=== PATIENT | male | born 1945 | race Caucasian/White ===

== ENCOUNTER → 2017-09-23 | Outpatient (CLI) | payer MEDICARE | END | disposition home or self-care (01) | LOC: CT 08:58 | DX: I60.9 Nontraumatic subarachnoid hemorrhage, unspecified (principal) | CPT/HCPCS: 70450 ==

== ENCOUNTER → 2017-12-20 | Outpatient (CLI) | payer OTHER, MEDICARE | END | disposition home or self-care (01) | LOC: KCIC CT 11:10 | DX: Z12.2 Encounter for screening for malignant neoplasm of respiratory organs (principal); J44.9 Chronic obstructive pulmonary disease, unspecified; N28.9 Disorder of kidney and ureter, unspecified; Z87.891 Personal history of nicotine dependence | CPT/HCPCS: 71250 ==

== ENCOUNTER → 2018-04-15 | Outpatient (CLI) | payer OTHER | END | disposition home or self-care (01) | LOC: KCIC CT 08:03 | DX: R91.8 Other nonspecific abnormal finding of lung field (principal); N28.89 Other specified disorders of kidney and ureter; I25.10 Atherosclerotic heart disease of native coronary artery without angina pectoris; M47.894 Other spondylosis, thoracic region; I13.0 Hypertensive heart and chronic kidney disease with heart failure and stage 1 through stage 4 chronic kidney disease, or unspecified chronic kidney disease; E11.22 Type 2 diabetes mellitus with diabetic chronic kidney disease; N18.3 Chronic kidney disease, stage 3 (moderate); I50.9 Heart failure, unspecified; E78.5 Hyperlipidemia, unspecified; E03.9 Hypothyroidism, unspecified | CPT/HCPCS: 71250 ==

== ENCOUNTER → 2018-04-27 | Outpatient (CLI) | payer MEDICARE ==
[2017-09-13 14:14] VITALS: BP 111/57
[~2018-04-27] MED LIST: ACET325T21 PO; AMIO200T4 PO; ASPI-630 PO; ASPI325T11 PO; CARV3.12 PO; CLOP75TA57 PO; CYAN100T PO; FOLI1TAB16 PO; HYDR-965 PO; LEVO100T PO; LIDO700A4 TP; MAGN400O7 PO; MAGN400T22 PO; MIDO5TAB PO; NITR0.4T SL; NYST15CR TP; PANT40GR PO; SIMV20TA PO; TAMS0.4C2 PO; TRAM50TA PO
--- NOTE | 2018-04-27 12:00 | CARD ---
MR#: [id number] Date of Study: 04/27/2018 Ordering Physician: OBED ELI, Referring Physician: OBED ELI Tech: Dana Morocho RDCS APPROVED REPORT EXAM: Two-dimensional and M-mode echocardiogram with Doppler and color Doppler. Other Information Quality : Fair INDICATION Ischemic Cardiomyopathy 2D DIMENSIONS RVDd2.3 (2.9-3.5cm)Left Atrium(2D)3.6 (1.6-4.0cm) IVSd1.1 (0.7-1.1cm)Aortic Root(2D)3.1 (2.0-3.7cm) LVDd4.3 (3.9-5.9cm)LVOT Diameter2.4 (1.8-2.4cm) PWd1.1 (0.7-1.1cm)LVDs2.3 (2.5-4.0cm) FS (%) 30.0 %SV65.9 ml LVEF(%)60.0 (>50%) Aortic Valve AoV Peak Mathew.81.1cm/sAoV VTI10.9cm AO Peak GR.2.6mmHgLVOT Peak Mathew.77.7cm/s AO Mean GR.1mmHgAVA (VMAX)4.18cm2 SABINA (VTI)5.50cm2 Mitral Valve MV E Xujzchmt01.8cm/sMV DECEL [id number] MV A Velocity2.0cm/sE/A Ratio44.4 Tricuspid Valve TR P. [id number]/sRAP [id number] TR Peak Gr.02pdSgQKON07yyPh Pulmonary Vein S1 Fhdcrwfa23.6cm/sD2 Qdfqblzt06.8cm/s PVa [id number] LEFT VENTRICLE The left ventricle is normal size. There is normal left ventricular wall thickness. The left ventricu lar systolic function is normal. The Ejection Fraction is 55-60%. There is normal LV segmental wall m otion. RIGHT VENTRICLE The right ventricle is normal size. The right ventricular systolic function is normal. ATRIA The left atrium size is normal. The right atrium size is normal. The interatrial septum is intact wit h no evidence for an atrial septal defect or patent foramen ovale as noted on 2-D or Doppler imaging. AORTIC VALVE The aortic valve is calcified but opens well. Doppler and Color Flow revealed no significant aortic r egurgitation. There is no significant aortic valvular stenosis. MITRAL VALVE The mitral valve is calcified but opens well. There is no evidence of mitral valve prolapse. There is no mitral valve stenosis. Doppler and Color-flow revealed trace mitral regurgitation. TRICUSPID VALVE The tricuspid valve is normal in structure and function. Doppler and Color Flow revealed trace tricus pid regurgitation. The PA pressure was estimated at 25 mmHg. There is no tricuspid valve stenosis. PULMONIC VALVE The pulmonic valve is not well visualized. Doppler and Color Flow revealed trace pulmonic valvular re gurgitation. There is no pulmonic valvular stenosis. GREAT VESSELS The aortic root is normal in size. The ascending aorta is not well seen. The IVC is normal in size an d collapses >50% with inspiration. PERICARDIAL EFFUSION There is no evidence of significant pericardial effusion. Critical Notification Critical Value: No <Conclusion> The left ventricular systolic function is normal. The Ejection Fraction is 55-60%. There is normal LV segmental wall motion. Trace mitral regurgitation. Trace tricuspid regurgitation. The PA pressure was estimated at 25 mmHg. There is no evidence of significant pericardial effusion. Signed by : Obed Eli, Electronically Approved : 04/27/2018 11:58:57
== END | disposition home or self-care (01) ==
LOC: ECHO 09:33
PROVIDERS: ATTEND Internal Medicine Cardiovascular Disease
DX: I25.5 Ischemic cardiomyopathy (principal); I13.0 Hypertensive heart and chronic kidney disease with heart failure and stage 1 through stage 4 chronic kidney disease, or unspecified chronic kidney disease; E11.22 Type 2 diabetes mellitus with diabetic chronic kidney disease; N18.3 Chronic kidney disease, stage 3 (moderate); I50.9 Heart failure, unspecified; E78.5 Hyperlipidemia, unspecified; E03.9 Hypothyroidism, unspecified; J44.9 Chronic obstructive pulmonary disease, unspecified; I25.10 Atherosclerotic heart disease of native coronary artery without angina pectoris; K21.9 Gastro-esophageal reflux disease without esophagitis; Z87.891 Personal history of nicotine dependence
CPT/HCPCS: 93306

== ENCOUNTER 2018-05-20 07:48 | Outpatient (CLI) | payer MEDICARE ==
[2018-05-20] VITALS (13 sets, daily range): BP systolic 110–141; BP diastolic 68–86
[~2018-05-20] VITALS: Ht 170.2 cm; Wt 113.4 kg
[~2018-05-20 07:48] MED LIST changes: +IODIXANOL 320 MG/ML 100 ML VIAL. ONE; +LIDOCAINE 1% PF 2 ML VIAL. ONE
[2018-05-20 08:27] LABS: HEMATOCRIT 40.7 % (39.0-53.0); RED BLOOD COUNT 4.23 x10^6/uL (4.30-5.70); RED CELL DISTRIBUTION WIDTH 15.4 % (11.5-14.5); WHITE BLOOD COUNT 6.9 x10^3/uL (4.0-11.0)
[2018-05-20 08:36] LABS: PROTHROMBIN TIME PATIENT 12.5 SEC (11.7-14.0)
[2018-05-20] MEDS ORDERED: ASPI325T11 PO (08:38)
[2018-05-20] MEDS ORDERED: CLOP75TA PO (08:38)
[2018-05-20 08:40] LABS: CALCIUM 8.8 mg/dL (8.5-10.1); CREATININE 1.9 mg/dL (0.7-1.3); GFR 34.8; POTASSIUM 3.8 mmol/L (3.5-5.1)
[2018-05-20] MEDS ORDERED: MIDO5TAB PO (08:48)
[2018-05-20] MEDS ORDERED: TAMS0.4C2 PO (08:51)
[2018-05-20] MEDS ORDERED: fentaNYL PF VIAL 100 MCG/2 ML VIAL ONE (08:53)
[2018-05-20] MEDS ORDERED: VERAPAMIL 5 MG/2 ML VIAL. ONE (08:54)
[2018-05-20] MEDS ORDERED: HEPARIN for IV BOLUS 10,000 UNIT/10 ML VIAL. ONE (08:54)
[2018-05-20] MEDS ORDERED: NITROGLYCERIN 200 MCG/2 ML SYRINGE FOR CATH/VASC LAB. ONE (08:54)
[2018-05-20] MEDS ORDERED: MIDAZOLAM HCL/PF 2 MG/2 ML VIAL. ONE (08:54)
[2018-05-20] MEDS ORDERED: LIDOCAINE 1% PF 2 ML VIAL. INJ ONE (09:30)
[2018-05-20] MEDS ORDERED: fentaNYL PF VIAL 100 MCG/2 ML VIAL IV ONE (09:30)
[2018-05-20] MEDS ORDERED: NITROGLYCERIN 200 MCG/2 ML SYRINGE FOR CATH/VASC LAB. IART ONE (09:30)
[2018-05-20] MEDS ORDERED: HEPARIN for IV BOLUS 10,000 UNIT/10 ML VIAL. IART ONE (09:30)
[2018-05-20] MEDS ORDERED: IODIXANOL 320 MG/ML 100 ML VIAL. IV ONE (09:30)
[2018-05-20] MEDS ORDERED: VERAPAMIL 5 MG/2 ML VIAL. IART ONE (09:30)
[2018-05-20] MEDS ORDERED: MIDAZOLAM HCL/PF 2 MG/2 ML VIAL. IV ONE (09:30)
[2018-05-20] MEDS ORDERED: IV 1/2 NORMAL SALINE 1,000 ML IV SCH ×2 (09:30→10:00)
[2018-05-20] MEDS ORDERED: CONTRAST GIVEN. MC PRN (09:45)
--- NOTE | 2018-05-20 09:50 | PDOC ---
MODERATE SEDATION ASSESSMENT RISKS/ALTERNATIVES Risks/Alternatives Risks and alternatives of this type of sedation and procedure discussed with: RISK/ALTERNATIVES: Patient H & P ON CHART H & P H & P on chart and reviewed for co-morbid conditions and appropriate labs. H&P ON CHART: Yes STATUS PREG STATUS ASSESSED: N/A MEDS/ALLERGIES REVIEWED Meds/Allergies Reviewed Medications and Allergies including time and route of recently administered narcotics and sedatives. MEDS/ALLERGIES REVIEWED: Yes ASA RATING ASA RATING: II AIRWAY ASSESSMENT Airway Assessment Airway patency, oral function limitations, presence of caps, crowns, dentures, partials, and ability to extend neck assessed. AIRWAY ASSESSMENT: Yes MALLAMPATI SCORE MALLAMPATI SCORE: II PRE-SEDATION ASSESSMENT PRE-SEDATION ASSESSMENT: Yes OBED ELI MD May 20, 2018 09:50
[2018-05-20] MEDS ORDERED: NITROGLYCERIN SUBLINGUAL 0.4 MG BOTTLE OF 25. SL PRN (10:00)
--- NOTE | 2018-05-20 10:33 | CARD ---
MR#: [id number] Date of Study: 05/20/2018 Ordering Physician: OBED ELI, Referring Physician: OBED ELI Tech: RT Amrit (R) APPROVED REPORT Technologist: Lorna Morocho RT (R) Nurse: Johanny Lamas R.N. Procedure(s) performed: Left heart catheterization, selective coronary angiography and left ventricul ography via right transradial approach Moderate sedation: 28 minutes INDICATION The indication(s) include : Unstable angina and positive stress test. PROCEDURE NARRATIVE After explaining the risks, benefits and alternative options, informed consent was obtained from alfred ent. Patient was brought to the cardiac Printer Maintainer and right wrist was prepped and draped in the usual fashion after confirming a positive modified Victor Manuel's test. Arterial access was obtained in the righ t radial artery and a 6 Cameroonian sheath was inserted. 6 Cameroonian Yash catheter was used to perform darrion ective angiography of the left and right coronary arteries. 6 Cameroonian pigtail catheter was used to pe rform left ventriculography. Patient tolerated the procedure well. Hemostasis was achieved using TR band. There were no immediate complications. The following findings were noted. FINDINGS 1. Hemodynamics: Left ventricular end-diastolic pressure of 17 mmHg. No pullback gradient across th e aortic valve. 2. Left ventriculography: Normal left ventricle systolic function with ejection fraction estimated at 60%. No significant mitral regurgitation seen. 3. Coronary angiography: a. The left main coronary artery arose from the left sinus of Valsalva, gave rise to the left anteri or descending and left circumflex arteries and showed 70% calcified stenosis involving the proximal s egment. b. The left anterior descending artery showed 95% stenosis involving the proximal to midsegment. c. The left circumflex artery showed 50% stenosis in the midsegment. d. The right coronary artery was a large and dominant vessel arising from the right sinus of Valsalv a that showed patent stent in the proximal to midsegment. Immediately distal to the stent, there was a 60-70% stenosis noted. The distal segment had 40% stenosis. Conclusion 1. Three-vessel coronary artery disease including significant left main coronary artery stenosis and critical left anterior descending artery stenosis 2. Normal left ventricle systolic function with ejection fraction estimated at 60% Recommendations CT surgery consultation for possible coronary artery bypass surgery. If patient is deemed a poor surgical candidate, we will consider high risk multivessel PCI/stents myesha cement with hemodynamic support from Impella percutaneous ventricular assist device. Signed by : Obed Eli, Electronically Approved : 05/20/2018 10:32:15
[2018-05-20] MEDS ORDERED: NITR0.4T22 SL (13:46)
--- NOTE | 2018-05-20 16:39 | PDOC2 ---
CONSULT Date of Consult Date of Consult DATE: 05/20/18 TIME: 16:33 Reason for Consult Reason for Consult: Severe three-vessel coronary artery disease with left main stem involvement Referring Physician Referring Physician: Dr Traore Identification/Chief Complaint Chief Complaint Chest pain Source Source: Chart review, Patient History of Present Illness Reason for Visit: The patient is a 72-year-old male who underwent a stress test which was positive. 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 He also complains of intermittent chest pain on exertion. He had a left heart catheter today showed three-vessel coronary artery disease including significant left main coronary artery stenosis and critical left anterior descending artery stenosis. LV function is preserved. Was consulted to consider the patient for surgical coronary revascularization. Of note the patient has a history of bilateral lower extremity greater saphenous vein ablations. He also has chronic kidney disease with a baseline creatinine of 2. Past Medical History Cardiovascular: AFIB, CAD, CHF, Other Pulmonary: Pneumonia GI: Gastritis Heme/Onc: Anemia NOS Musculoskeletal: low back pain Renal/: Acute renal failure, Chronic renal failure Endocrine: Hypothyroidism Past Surgical History Past Surgical History: Hysterectomy Family History Family History: Family History Unknown Social History ALCOHOL: none Lives: Senior Care Current Medications Current Medications Current Medications Iodixanol (Visipaque 320) 100 ml STK-MED ONCE .ROUTE ; Start 05/20/18 at 07:13; Stop 05/20/18 at 07:14; Status DC Lidocaine HCl (Xylocaine-Mpf 1% 2ml Vial) 2 ml STK-MED ONCE .ROUTE ; Start at 07:13; Stop 05/20/18 at 07:14; Status DC Heparin Sodium/ Sodium Chloride 500 ml @ As Directed STK-MED ONCE .ROUTE ; Start 05/20/18 at 07:14; Stop 05/20/18 at 07:15; Status DC Heparin Sodium/ Sodium Chloride 500 ml @ As Directed STK-MED ONCE .ROUTE ; Start 05/20/18 at 07:20; Stop 05/20/18 at 07:21; Status DC Fentanyl Citrate (Fentanyl 2ml Vial) 100 mcg STK-MED ONCE .ROUTE ; Start at 08:53; Stop 05/20/18 at 08:54; Status DC Midazolam HCl (Versed) 2 mg STK-MED ONCE .ROUTE ; Start 05/20/18 at 08:54; Stop 05/20/18 at 08:55; Status DC Heparin Sodium (Porcine) (Heparin Sodium) 10,000 unit STK-MED ONCE .ROUTE ; Start 05/20/18 at 08:54; Stop 05/20/18 at 08:55; Status DC Verapamil HCl (Verapamil) 5 mg STK-MED ONCE .ROUTE ; Start 05/20/18 at 08:54; Stop 05/20/18 at 08:55; Status DC Nitroglycerin (Nitroglycerin) 200 mcg STK-MED ONCE .ROUTE ; Start 05/20/18 at 08: 54; Stop 05/20/18 at 08:55; Status DC Nitroglycerin (Nitroglycerin) 200 mcg 1X ONCE IART Last administered on at 09:30; Start 05/20/18 at 09:30; Stop 05/20/18 at 09:39; Status DC Verapamil HCl (Verapamil) 2.5 mg 1X ONCE IART Last administered on 05/20/18at 09 :30; Start 05/20/18 at 09:30; Stop 05/20/18 at 09:39; Status DC Heparin Sodium (Porcine) (Heparin Sodium) 2,500 unit 1X ONCE IART Last administered on 05/20/18at 09:30; Start 05/20/18 at 09:30; Stop 05/20/18 at 09:39; Status DC Heparin Sodium/ Sodium Chloride (HEPARIN for ARTERIAL LINE FLUSH) 1,000 unit 1X ONCE IART Last administered on 05/20/18at 09:30; Start 05/20/18 at 09:30; Stop 05/20/18 at 09:39; Status DC Midazolam HCl (Versed) 2 mg 1X ONCE IV Last administered on 05/20/18at 09:30; Start 05/20/18 at 09:30; Stop 05/20/18 at 09:39; Status DC Fentanyl Citrate (Fentanyl 2ml Vial) 75 mcg 1X ONCE IV Last administered on 05/20/18at 09:38; Start 05/20/18 at 09:30; Stop 05/20/18 at 09:39; Status DC Lidocaine HCl (Xylocaine-Mpf 1% 2ml Vial) 2 ml 1X ONCE INJ Last administered on 05/20/18at 09:37; Start 05/20/18 at 09:30; Stop 05/20/18 at 09:39; Status DC Iodixanol (Visipaque 320) 126 ml 1X ONCE IV Last administered on 05/20/18at 09: 30; Start 05/20/18 at 09:30; Stop 05/20/18 at 09:39; Status DC Sodium Chloride 1,000 ml @ 75 mls/hr [id number] IV Last administered on 05/20/18at 09:30; Start 05/20/18 at 09:30; Stop 05/20/18 at 13:52; Status DC Info (CONTRAST GIVEN -- Rx MONITORING) 1 each PRN DAILY PRN MC SEE COMMENTS; Start 05/20/18 at 09:45; Stop 05/20/18 at 13:52; Status DC Sodium Chloride 1,000 ml @ 100 mls/hr Q10H IV ; Start 05/20/18 at 10:00; Stop at 13:52; Status DC Nitroglycerin (Nitrostat) 0.4 mg PRN Q5MIN PRN SL CHEST PAIN; Start 05/20/18 at 10:00; Stop 05/20/18 at 13:52; Status DC Active Scripts Active Reported NITROGLYCERIN SubLingual (Nitroglycerin) 0.4 Mg Tab.subl 0.4 Mg SL PRN Q5MIN PRN Tamsulosin Hcl 0.4 Mg Cap.er.24h 1 Cap PO DAILY Midodrine Hcl 5 Mg Tablet 5 Mg PO TID Aspirin Ec (Aspirin) 325 Mg Tablet.dr 1 Tab PO DAILY Clopidogrel (Clopidogrel Bisulfate) 75 Mg Tablet 1 Tab PO DAILY Midodrine Hcl 5 Mg Tablet 5 Mg PO Mag-Oxide (Magnesium Oxide) 400 Mg Tablet 1 Tab PO BID Zocor (Simvastatin) 20 Mg Tablet 20 Mg PO HS Synthroid (Levothyroxine Sodium) 100 Mcg Tablet 100 Mcg PO DAILY06 Protonix (Pantoprazole Sodium) 40 Mg Granpkt.dr 40 Mg PO DAILY08 Nitrostat (Nitroglycerin) 0.4 Mg Tab.subl 0.4 Mg SL PRN Q5MIN Lidoderm (Lidocaine) 700 Mg Adh..patch 700 Mg TP DAILY Folic Acid 1 Mg Tablet 1 Mg PO DAILY Vitamin B-12 (Cyanocobalamin (Vitamin B-12)) 100 Mcg Tablet 100 Mcg PO DAILY Milk Of Magnesia (Magnesium Hydroxide) 400 Mg/5 Ml Oral.susp 400 Mg PO PRN Q2HR Acetaminophen 325 Mg Tablet 325 Mg PO PRN Q6HRS Allergies Allergies: Coded Allergies: No Known Drug Allergies (Unverified , 08/19/13) ROS General: No: Chills, Night Sweats, Fatigue, Malaise, Appetite PSYCHOLOGICAL ROS: No: Anxiety, Behavioral Disorder, Concentration difficultie , Decreased libido, Depression, Disorientation, Hallucinations, Hostility, Irritablity, Memory difficulties, Mood Swings, Obsessive thoughts, Physical abuse, Sexual abuse, Sleep disturbances, Suicidal ideation Eyes: No Blurry vision, No Decreased vision, No Double vision, No Dry eyes, No Excessive tearing, No Eye Pain, No Itchy Eyes, No Loss of vision, No Photophobia , No Scotomata, No Uses contacts, No Uses glasses HEENT: No: Heacaches, Visual Changes, Hearing change, Nasal congestion, Nasal discharge, Oral lesions, Sinus pain, Sore Throat, Epistaxis, Sneezing, Snoring, Tinnitus, Vertigo, Vocal changes ALLERGY AND IMMUNOLOGY: No: Hives, Insect Bite Sensitivity, Itchy/Watery Eyes, Nasal Congestion, Post Nasal Drip, Seasonal Allergies Hematological and Lymphatic: No: Bleeding Problems, Blood Clots, Blood Transfusions, Brusing, Night Sweats, Pallor, Swollen Lymph Nodes ENDOCRINE: No: Breast Changes, Galactorrhea, Hair Pattern Changes, Hot Flashes , Malaise/lethargy, Mood Swings, Palpitations, Polydipsia/polyuria, Skin Changes , Temperature Intolerance, Unexpected Weight Changes Respiratory: No: Cough, Hemoptysis, Orthopnea, Pleuritic Pain, Shortness of breath, SOB with excertion, Sputum Changes, Stridor, Tachypnea, Wheezing Cardiovascular: yes Chest Pain; No Palpitations, No Orthopnea, No Paroxysmal Noc. Dyspnea, No Edema, No Lt Headedness Gastrointestinal: No Nausea, No Vomiting, No Abdominal Pain, No Diarrhea, No Constipation, No Melena, No Hematochezia Genitourinary: No Dysuria, No Frequency, No Incontinence, No Hematuria, No Retention, No Discharge, No Urgency, No Pain, No Flank Pain Musculoskeletal: No Gait Disturbance, No Joint Pain, No Joint Stiffness, No Joint Swelling, No Muscle Pain, No Muscular Weakness, No Pain In:, No Swelling In: Neurological: No Behavorial Changes, No Bowel/Bladder ControlChng, No Confusion , No Dizziness, No Gait Disturbance, No Headaches, No Impaired Coord/balance, No Memory Loss, No Numbness/Tingling, No Seizures, No Speech Problems, No Tremors, No Visual Changes, No Weakness Skin: No Dry Skin, No Eczema, No Hair Changes, No Lumps, No Mole Changes, No Mottling, No Nail Changes, No Pruritus, No Rash, No Skin Lesion Changes, No Acne Physical Exam General: Alert, Oriented X3, No acute distress HEENT: Atraumatic, PERRLA Lungs: Clear to auscultation Heart: Normal S1, Normal S2, Other (irregular) Abdomen: Soft, No tenderness Extremities: No edema Skin: No significant lesion Neuro: Normal gait, Normal speech, Strength at 5/5 X4 ext, Normal tone, Sensation intact, Cranial nerves 3-12 NL Psych/Mental Status: Mental status NL MUSCULOSKELETAL: No deformity Vitals VITALS Vital Signs Date Time Temp Pulse Resp B/P (MAP) Pulse Ox O2 Delivery O2 Flow Rate FiO2 05/20/18 13:30 80 18 96 Room Air 05/20/18 09:38 2.0 05/20/18 08:15 98.3 127/83 (98) 98.3 Labs Labs Laboratory Tests Test 05/20/18 08:15 White Blood Count 6.9 x10^3/uL (4.0-11.0) Red Blood Count 4.23 x10^6/uL (4.30-5.70) Hemoglobin 14.0 g/dL (13.0-17.5) Hematocrit 40.7 % (39.0-53.0) Mean Corpuscular Volume 96 fL (79-100) Mean Corpuscular Hemoglobin 33 pg (25-35) Mean Corpuscular Hemoglobin Concent 34 g/dL (31-37) Red Cell Distribution Width 15.4 % (11.5-14.5) Platelet Count 213 x10^3/uL (140-400) Prothrombin Time 12.5 SEC (11.7-14.0) Prothromb Time International Ratio 1.0 (0.8-1.1) Sodium Level 138 mmol/L (136-145) Potassium Level 3.8 mmol/L (3.5-5.1) Chloride Level 99 mmol/L (98-107) Carbon Dioxide Level 25 mmol/L (21-32) Anion Gap 14 (6-14) Blood Urea Nitrogen 14 mg/dL (8-26) Creatinine 1.9 mg/dL (0.7-1.3) Estimated GFR (Cockcroft-Gault) 34.8 Glucose Level 111 mg/dL (70-99) Calcium Level 8.8 mg/dL (8.5-10.1) Laboratory Tests Test 05/20/18 08:15 White Blood Count 6.9 x10^3/uL (4.0-11.0) Red Blood Count 4.23 x10^6/uL (4.30-5.70) Hemoglobin 14.0 g/dL (13.0-17.5) Hematocrit 40.7 % (39.0-53.0) Mean Corpuscular Volume 96 fL (79-100) Mean Corpuscular Hemoglobin 33 pg (25-35) Mean Corpuscular Hemoglobin Concent 34 g/dL (31-37) Red Cell Distribution Width 15.4 % (11.5-14.5) Platelet Count 213 x10^3/uL (140-400) Prothrombin Time 12.5 SEC (11.7-14.0) Prothromb Time International Ratio 1.0 (0.8-1.1) Sodium Level 138 mmol/L (136-145) Potassium Level 3.8 mmol/L (3.5-5.1) Chloride Level 99 mmol/L (98-107) Carbon Dioxide Level 25 mmol/L (21-32) Anion Gap 14 (6-14) Blood Urea Nitrogen 14 mg/dL (8-26) Creatinine 1.9 mg/dL (0.7-1.3) Estimated GFR (Cockcroft-Gault) 34.8 Glucose Level 111 mg/dL (70-99) Calcium Level 8.8 mg/dL (8.5-10.1) Images Images FINDINGS 1. Hemodynamics: Left ventricular end-diastolic pressure of 17 mmHg. No pullback gradient across the aortic valve. 2. Left ventriculography: Normal left ventricle systolic function with ejection fraction estimated at 60%. No significant mitral regurgitation seen. 3. Coronary angiography: a. The left main coronary artery arose from the left sinus of Valsalva, gave rise to the left anterior descending and left circumflex arteries and showed 70 % calcified stenosis involving the proximal segment. b. The left anterior descending artery showed 95% stenosis involving the proximal to midsegment. c. The left circumflex artery showed 50% stenosis in the midsegment. d. The right coronary artery was a large and dominant vessel arising from the right sinus of Valsalva that showed patent stent in the proximal to midsegment. Immediately distal to the stent, there was a 60-70% stenosis noted. The distal segment had 40% stenosis. Conclusion 1. Three-vessel coronary artery disease including significant left main coronary artery stenosis and critical left anterior descending artery stenosis 2. Normal left ventricle systolic function with ejection fraction estimated at 60% Assessment/Plan Assessment/Plan 72-year-old male who underwent a stress test which was positive. 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 He also complains of intermittent chest pain on exertion. He had a left heart catheter today showed three-vessel coronary artery disease including significant left main coronary artery stenosis and critical left anterior descending artery stenosis. LV function is preserved. Was consulted to consider the patient for surgical coronary revascularization. Of note the patient has a history of bilateral lower extremity greater saphenous vein ablations. He also has chronic kidney disease with a baseline creatinine of 2. He is right-handed and is left-sided Victor Manuel's test is borderline. Given the lack of conduits, I think proceeding with a CABG may pose some risk if no conduits are found. I did discuss this case with his clinical esthetician Dr Traore, who agrees it would be safer to proceed with PCI. AWILDA PAUL MD May 20, 2018 16:39
== END 2018-05-20 13:40 | disposition home or self-care (01) ==
LOC: CCL 07:48
PROVIDERS: ATTEND Internal Medicine Cardiovascular Disease
DX: I25.110 Atherosclerotic heart disease of native coronary artery with unstable angina pectoris (principal); I48.91 Unspecified atrial fibrillation; Z87.01 Personal history of pneumonia (recurrent); Z87.19 Personal history of other diseases of the digestive system; E03.9 Hypothyroidism, unspecified; I13.0 Hypertensive heart and chronic kidney disease with heart failure and stage 1 through stage 4 chronic kidney disease, or unspecified chronic kidney disease; N18.9 Chronic kidney disease, unspecified; D64.9 Anemia, unspecified; Z79.899 Other long term (current) drug therapy
CPT/HCPCS: 36415; 80048; 85027; 85610; 93458; 99152; 99153; C1769; C1892; J1644; J2250; J3010; J3490; Q9967

== ENCOUNTER 2018-05-24 07:54 | Inpatient (IN) | payer MEDICARE ==
[2018-05-24] VITALS (16 sets, daily range): BP systolic 91–136; BP diastolic 60–84
[~2018-05-24] VITALS: Ht 170.2 cm; Wt 113.4 kg
[~2018-05-24 07:54] MED LIST changes: +CLOP75TA PO; -LIDOCAINE 1% PF 2 ML VIAL. ONE; +LIDOCAINE 1% PF 30 ML VIAL. ONE; +NITR0.4T22 SL
[2018-05-24 08:47] LABS: CALCIUM 8.4 mg/dL (8.5-10.1); CREATININE 2.2 mg/dL (0.7-1.3); GFR 29.4; POTASSIUM 3.8 mmol/L (3.5-5.1)
[2018-05-24 08:57] LABS: PROTHROMBIN TIME PATIENT 13.1 SEC (11.7-14.0)
[2018-05-24 08:58] LABS: HEMATOCRIT 40.4 % (39.0-53.0); HEMOGLOBIN 13.7 g/dL (13.0-17.5); RED BLOOD COUNT 4.21 x10^6/uL (4.30-5.70); RED CELL DISTRIBUTION WIDTH 15.4 % (11.5-14.5); WHITE BLOOD COUNT 7.4 x10^3/uL (4.0-11.0)
[2018-05-24] MEDS ORDERED: fentaNYL PF VIAL 100 MCG/2 ML VIAL ONE (10:03)
[2018-05-24] MEDS ORDERED: MIDAZOLAM HCL/PF 2 MG/2 ML VIAL. ONE ×2 (10:03→10:45)
[2018-05-24] MEDS ORDERED: BIVALIRUDIN 250 MG VIAL. IV ONE ×2 (10:03→12:00)
[2018-05-24] MEDS ORDERED: IODIXANOL 320 MG/ML 100 ML VIAL. ONE (10:18)
[2018-05-24] MEDS ORDERED: LIDOCAINE 1% PF 30 ML VIAL. ONE (10:32)
[2018-05-24] MEDS ORDERED: CLOPIDOGREL BISULFATE 75 MG TABLET ONE (11:53)
[2018-05-24] MEDS ORDERED: fentaNYL PF VIAL 100 MCG/2 ML VIAL IV ONE (12:00)
[2018-05-24] MEDS ORDERED: CLOPIDOGREL BISULFATE 75 MG TABLET PO ONE (12:00)
[2018-05-24] MEDS ORDERED: LIDOCAINE 1% PF 30 ML VIAL. INJ ONE (12:00)
[2018-05-24] MEDS ORDERED: IODIXANOL 320 MG/ML 100 ML VIAL. IART ONE (12:00)
[2018-05-24] MEDS ORDERED: MIDAZOLAM HCL/PF 2 MG/2 ML VIAL. IV ONE (12:00)
[2018-05-24] MEDS ORDERED: CONTRAST GIVEN. MC PRN (12:15)
--- NOTE | 2018-05-24 12:18 | PDOC ---
MODERATE SEDATION ASSESSMENT RISKS/ALTERNATIVES Risks/Alternatives Risks and alternatives of this type of sedation and procedure discussed with: RISK/ALTERNATIVES: Patient H & P ON CHART H & P H & P on chart and reviewed for co-morbid conditions and appropriate labs. H&P ON CHART: Yes STATUS PREG STATUS ASSESSED: N/A MEDS/ALLERGIES REVIEWED Meds/Allergies Reviewed Medications and Allergies including time and route of recently administered narcotics and sedatives. MEDS/ALLERGIES REVIEWED: Yes ASA RATING ASA RATING: III AIRWAY ASSESSMENT Airway Assessment Airway patency, oral function limitations, presence of caps, crowns, dentures, partials, and ability to extend neck assessed. AIRWAY ASSESSMENT: Yes MALLAMPATI SCORE MALLAMPATI SCORE: II PRE-SEDATION ASSESSMENT PRE-SEDATION ASSESSMENT: Yes OBED ELI MD May 24, 2018 12:18
[2018-05-24] MEDS ORDERED: ACETAMINOPHEN 325 MG TABLET. PO PRN (12:30)
[2018-05-24] MEDS ORDERED: NITROGLYCERIN SUBLINGUAL 0.4 MG BOTTLE OF 25. SL PRN (12:30)
[2018-05-24] MEDS: CLOPIDOGREL BISULFATE 75 MG TABLET PO SCH (13:00)
[2018-05-24] MEDS: IV 1/2 NORMAL SALINE 1,000 ML IV SCH ×2 (13:26→20:59)
[2018-05-24] MEDS ORDERED: HYDROcodone/APAP 5/325MG 1 TAB TABLET PO PRN (13:45)
[2018-05-24] MEDS: ASPIRIN ENTERIC COATED 325 MG TABLET.DR. PO SCH (13:59)
--- NOTE | 2018-05-24 14:22 | CARD ---
MR#: [id number] Date of Study: 05/24/2018 Ordering Physician: OBED TRAORE, Referring Physician: OBED TRAORE Tech: RT Amrit (R) APPROVED REPORT Technologist: RT Amrit (R) Nurse: Procedure(s) performed: 1. Successful complex and high risk PCI/drug eluting stents placement to the left main coronary artery, left anterior descending artery and right coronary artery 2. Instant wave free ratio (IFR) measurement to the left circumflex artery 3. Insertion of Impella percutaneous ventricular assist device for hemodynamic support during the hi gh risk PCI with successful removal at the end of procedure Moderate sedation: 125 minutes INDICATION The indication(s) include : 72-year-old male was found to have significant multivessel coronary arter y disease including left main coronary artery stenosis on cardiac catheterization done on 05/20/2018 se condary to unstable angina and positive stress test. He was deemed a poor candidate for coronary piper ry bypass surgery by [facility] thoracic surgery team. He hence presented for high risk multivessel PCI/d rug eluting stents placement. Impella percutaneous ventricular assist device was used during the proc edure due to increased risk of intraprocedural hemodynamic collapse and secondary to calcified left main coronary artery stenosis and multivessel percutaneous intervention.. PROCEDURE NARRATIVE After explaining the risks, benefits and alternative options, informed consent was obtained from alfred ent. Patient was brought to the cardiac [place] Technician and both his groins were prepped and draped in the u sual fashion. 20 mL of 2% lidocaine was infiltrated into the skin and subcutaneous tissues of right g roin for local anesthesia. Arterial access was obtained in the right common femoral artery and a 6 Fr ench sheath was inserted. Venous access was obtained in the right common femoral vein and 5 Greenlandic sh eath was inserted for intravenous medication administration since patient had poor peripheral IV acce ss. Subsequently, 20 mL of 2% lidocaine was infiltrated into the skin and subcutaneous tissues of lef t groin for local anesthesia. Arterial access was obtained in the left common femoral artery and a 6 Greenlandic sheath was inserted. Angiography was performed to assess the suitability of the artery for myesha cement of Impella. The arteriotomy site was then prepared for later closure using two Perclose suture closure devices in the 'Preclose' fashion. Subsequently, the arteriotomy site was dilated sequential ly and 13 Greenlandic sheath was inserted. A 6 Greenlandic multipurpose catheter was used to cross the aortic v alve and LVEDP measurement was made 7 mmHg. This was then exchanged over a 0.018 inch guidewire to a Abiomed 2.5 Impella percutaneous ventricular assist device. This was advanced across the aortic valve under fluoroscopy guidance and positioned appropriately. The settings were sequentially increased fo r optimal augmentation and hemodynamic support. A 6 Greenlandic JR4 guide catheter was used to engage the right coronary artery and the stenosis in the mi dsegment was crossed with a 0.014 inch Sagebin prowater guidewire. This was successfully treated with a 2.75 x 12 mm resolute nelson drug-eluting stent. Follow-up angiography showed resolution of the stenos is from 70% to 0% with BRI-3 distal flow. Subsequently, the left main coronary artery was engaged wi th a 6 Greenlandic XB 3.5 guide catheter and the angiographically borderline significant stenosis in the l eft circumflex artery was crossed with Translimit Verrata PressureWire. IFR measurement was made at 0.97 which proved that the lesion was physiologically insignificant. Following this, the left main foote ry artery and left anterior descending artery stenoses were crossed with a 0.014 inch [place] prowater guidewire. The left anterior descending artery stenosis (calcified 90-95%) was dilated with a 2.5 x 1 5 mm balloon following which this was successfully treated with a 2.75 x 38 mm resolute nelson drug-elu ting stent. Subsequently, the left main coronary artery stenosis (calcified 70%) was dilated with a 3 .5 x 12 mm trek balloon following which this was successfully treated with a 4.0 x 8 mm resolute nelson drug-eluting stent. Final angiography showed resolution of both these stenoses to 0% with BRI-3 dis lena flow. Since patient remained hemodynamically stable at the end of procedure, the Impella ventricular assist device was then dialed down to P1 setting and under fluoroscopic guidance was pulled back accross ao rtic valve. It was then turned off and removed from body successfully. Hemostasis in the right groi n was achieved using Angio-Seal and manual compression. Hemostasis in the left groin was achieved by completing Preclose technique. Patient tolerated the procedure well. There were no immediate complic ations. Conclusion Successful high risk PCI/drug eluting stents placement to the left main coronary artery, left anterio r descending artery and right coronary artery with the help of hemodynamic support from Impella percu taneous ventricular assist device. Recommendations 1. Aspirin 325 mg daily 2. Plavix 75 mg daily for preferably one year 3. Cardiovascular risk factor modification. Signed by : Obed Traore, Electronically Approved : 05/24/2018 14:21:23
[2018-05-24] MEDS ORDERED: ACETAMINOPHEN 325 MG TABLET. PO SCH (17:00)
[2018-05-24] MEDS ORDERED: SIMVASTATIN 20 MG TABLET PO SCH (21:00)
[2018-05-25] VITALS (11 sets, daily range): BP systolic 85–116; BP diastolic 55–74
[2018-05-25 04:55] LABS: HEMATOCRIT 36.3 % (39.0-53.0); HEMOGLOBIN 12.4 g/dL (13.0-17.5); RED BLOOD COUNT 3.75 x10^6/uL (4.30-5.70); RED CELL DISTRIBUTION WIDTH 15.7 % (11.5-14.5); WHITE BLOOD COUNT 7.8 x10^3/uL (4.0-11.0)
[2018-05-25 05:26] LABS: CREATININE 1.9 mg/dL (0.7-1.3); GFR 34.8; POTASSIUM 3.8 mmol/L (3.5-5.1)
[2018-05-25] MEDS ORDERED: LEVOTHYROXINE 100 MCG TABLET PO SCH (06:00)
[2018-05-25] MEDS ORDERED: PANTOPRAZOLE 40 MG TABLET.DR. PO SCH (07:30)
[2018-05-25] MEDS ORDERED: FOLIC ACID 1 MG TABLET. PO SCH (09:00)
[2018-05-25] MEDS ORDERED: CYANOCOBALAMIN (VITAMIN B-12) 100 MCG TABLET PO SCH (09:00)
[2018-05-25] MEDS ORDERED: TAMSULOSIN 0.4 MG CAP.ER.24H. PO SCH (09:00)
[2018-05-25] MEDS ORDERED: MAGNESIUM OXIDE 400 MG TABLET PO SCH (09:00)
[2018-05-25] MEDS: CLOPIDOGREL BISULFATE 75 MG TABLET PO SCH (09:00)
[2018-05-25] MEDS: ASPIRIN ENTERIC COATED 325 MG TABLET.DR. PO SCH (09:00)
--- NOTE | 2018-05-25 11:42 | PDOC3 ---
*Discharge Summary* Date of Admission: May 24, 2018 Date of Discharge: May 25, 2018 Admitting Diagnosis 1. multivessel CAD, [place] artery, deemed not a surgical candidate 2. CHB with prior PPM implantation 3. permanent atrial fibrillation 4. CVI with previous RF ablation 5. HTN 6. HLD 7. CKD 8. chronic anemia Final Diagnosis 1. multivessel CAD, [place] artery; s/p high risk Impella assisted PCI/NASIM to left main, LAD and RCA 2. CHB with prior PPM implantation 3. permanent atrial fibrillation 4. CVI with previous RF ablation 5. HTN 6. HLD 7. CKD 8. chronic anemia Procedures 05/24/2018: high risk PCI/drug eluting stents placement to the left main coronary artery, left anterior descending artery and right coronary artery with the help of hemodynamic support from Impella percutaneous ventricular assist device Brief Hospital Course Mr. Figueroa is a 72-year-old male was found to have significant multivessel coronary artery disease including left main coronary artery stenosis on cardiac catheterization done on 05/20/2018 secondary to unstable angina and positive stress test. He was deemed a poor candidate for coronary artery bypass surgery by cardiothoracic surgery team. Presented for high risk multivessel PCI/drug eluting stents placement. Impella percutaneous ventricular assist device was used during the procedure due to increased risk of intraprocedural hemodynamic collapse and secondary to calcified left main coronary artery stenosis and multivessel percutaneous intervention. Monitored overnight in ICU with post- procedure dysrhythmias or complications. Bilateral groin sites C/D/I without bruits present. Ambulating without difficulty. No c/o dyspnea or chest pain. Disposition/Orders: D/C to Home CONDITION AT DISCHARGE: Stable Diet: 2 gr sodium, Cardiac Home Meds Reported Medications Nitroglycerin (NITROGLYCERIN SubLingual) 0.4 Mg Tab.subl, 0.4 MG SL PRN Q5MIN PRN for CHEST PAIN, BOTTLE 05/20/18 Tamsulosin Hcl (TAMSULOSIN HCL) 0.4 Mg Cap.er.24h, 1 CAP PO DAILY, #30 CAP 5 Refills 05/20/18 Midodrine Hcl (MIDODRINE HCL) 5 Mg Tablet, 5 MG PO TID, TAB 05/20/18 Aspirin (ASPIRIN EC) 325 Mg Tablet.dr, 1 TAB PO DAILY, #30 TAB 5 Refills 05/20/18 Clopidogrel Bisulfate (CLOPIDOGREL) 75 Mg Tablet, 1 TAB PO DAILY, #90 TAB 1 Refill 05/20/18 Magnesium Oxide (MAG-OXIDE) 400 Mg Tablet, 1 TAB PO BID, #60 TAB 5 Refills 09/13/17 Simvastatin (ZOCOR) 20 Mg Tablet, 20 MG PO HS 08/20/13 Levothyroxine Sodium (SYNTHROID) 100 Mcg Tablet, 100 MCG PO DAILY06 08/20/13 Pantoprazole Sodium (PROTONIX) 40 Mg Granpkt.dr, 40 MG PO DAILY08 08/20/13 Nitroglycerin (NITROSTAT) 0.4 Mg Tab.subl, 0.4 MG SL PRN Q5MIN 08/20/13 Lidocaine (LIDODERM) 700 Mg Adh..patch, 700 MG TP DAILY 08/20/13 Folic Acid (FOLIC ACID) 1 Mg Tablet, 1 MG PO DAILY 08/20/13 Cyanocobalamin (Vitamin B-12) (VITAMIN B-12) 100 Mcg Tablet, 100 MCG PO DAILY 08/20/13 Magnesium Hydroxide (MILK OF MAGNESIA) 400 Mg/5 Ml Oral.susp, 400 MG PO PRN Q2HR 08/20/13 Acetaminophen (ACETAMINOPHEN) 325 Mg Tablet, 325 MG PO PRN Q6HRS 08/20/13 Discontinued Reported Medications Midodrine Hcl (MIDODRINE HCL) 5 Mg Tablet, 5 MG PO, TAB 09/13/17 Scheduled Acetaminophen (Acetaminophen), 325 MG PO PRN Q6HRS, (Reported) Aspirin (Aspirin Ec), 1 TAB PO DAILY, (Reported) Clopidogrel Bisulfate (Clopidogrel), 1 TAB PO DAILY, (Reported) Cyanocobalamin (Vitamin B-12) (Vitamin B-12), 100 MCG PO DAILY, (Reported) Folic Acid (Folic Acid), 1 MG PO DAILY, (Reported) Levothyroxine Sodium (Synthroid), 100 MCG PO DAILY06, (Reported) Lidocaine (Lidoderm), 700 MG TP DAILY, (Reported) Magnesium Hydroxide (Milk Of Magnesia), 400 MG PO PRN Q2HR, (Reported) Magnesium Oxide (Mag-Oxide), 1 TAB PO BID, (Reported) Midodrine Hcl (Midodrine Hcl), 5 MG PO TID, (Reported) Nitroglycerin (Nitrostat), 0.4 MG SL PRN Q5MIN, (Reported) Pantoprazole Sodium (Protonix), 40 MG PO DAILY08, (Reported) Simvastatin (Zocor), 20 MG PO HS, (Reported) Tamsulosin Hcl (Tamsulosin Hcl), 1 CAP PO DAILY, (Reported) Scheduled PRN Nitroglycerin (NITROGLYCERIN SubLingual), 0.4 MG SL PRN Q5MIN PRN for CHEST PAIN , (Reported) Discontinued Medications Midodrine Hcl (Midodrine Hcl), 5 MG PO, (Reported) FOLLOW UP APPOINTMENT: Dr. Cecil Traore in 4 weeks PCP 7-10 days Time Spent Total time spent with patient [30] minutes for coordination of care, counseling , and education. MONY WHIPPLE APRN May 25, 2018 11:42
== END 2018-05-25 12:20 | disposition home or self-care (01) | DRG 215 ==
LOC: CCL 07:54 → 1 WEST ICU 08:51 → EDSTATUS 09:30
PROVIDERS: ADMIT Internal Medicine Cardiovascular Disease; ATTEND Internal Medicine Cardiovascular Disease
PROC: 027236Z Dilation of Coronary Artery, Three Arteries with Three Drug-eluting Intraluminal Devices, Percutaneous Approach (ICD-10-PCS; principal; 2018-05-24)
PROC: 02HA3RJ Insertion of Short-term External Heart Assist System into Heart, Intraoperative, Percutaneous Approach (ICD-10-PCS; 2018-05-24)
PROC: 5A0221D Assistance with Cardiac Output using Impeller Pump, Continuous (ICD-10-PCS; 2018-05-24)
PROC: 4A033BC Measurement of Arterial Pressure, Coronary, Percutaneous Approach (ICD-10-PCS; 2018-05-24)
DX: I25.10 Atherosclerotic heart disease of native coronary artery without angina pectoris (principal); I44.2 Atrioventricular block, complete; I13.0 Hypertensive heart and chronic kidney disease with heart failure and stage 1 through stage 4 chronic kidney disease, or unspecified chronic kidney disease; I25.5 Ischemic cardiomyopathy; I87.2 Venous insufficiency (chronic) (peripheral); D64.9 Anemia, unspecified; E78.5 Hyperlipidemia, unspecified; I48.2 Chronic atrial fibrillation; N18.9 Chronic kidney disease, unspecified; E03.9 Hypothyroidism, unspecified; I50.9 Heart failure, unspecified; Z95.5 Presence of coronary angioplasty implant and graft; Z95.0 Presence of cardiac pacemaker; Z79.899 Other long term (current) drug therapy; Z79.82 Long term (current) use of aspirin; Z90.49 Acquired absence of other specified parts of digestive tract; Z82.49 Family history of ischemic heart disease and other diseases of the circulatory system; Z79.02 Long term (current) use of antithrombotics/antiplatelets
CPT/HCPCS: 33991; 36415; 80048; 85027; 85610; 85730; 87641; 92928; 93571; 99152; 99153; C1725; C1769; C1771; C1874; C1887; C1892; G0269; J0583; J1644; J2250; J3010

== ENCOUNTER 2018-11-28 12:51 | Inpatient (IN) | payer MEDICARE ==
[~2018-11-28] VITALS: Ht 170.2 cm; Wt 113.4 kg
[~2018-11-28 12:51] MED LIST changes: -CYAN100T PO; +CYAN100T2 PO; +HYDR-3165 PO; -HYDR-965 PO; -IODIXANOL 320 MG/ML 100 ML VIAL. ONE; -LIDOCAINE 1% PF 30 ML VIAL. ONE
[2018-11-28] MEDS ORDERED: ALBUTEROL SULFATE 2.5 MG/3 ML NEBU. CONT NEB ONE (13:45)
--- NOTE | 2018-11-28 14:15 | RAD ---
EXAM: AP View of the chest DATE: 11/28/2018 1:44 PM INDICATION: COUGH, DIZZY COMPARISON: CT chest 04/15/2018 FINDINGS: Heart is top normal in size. Aorta is tortuous with atherosclerotic calcifications. Patchy airspace opacities are seen in the right lung base. This may represent developing atelectasis or consolidation. Linear opacities bilateral lung bases likely scarring/atelectasis. No pleural effusion or pneumothorax. IMPRESSION: 1. Patchy airspace opacities right lung base likely developing consolidation or atelectasis. Radiographic follow-up to resolution is recommended. Electronically signed by: Alonzo Portillo MD (11/28/2018 2:11 PM) [id number]
--- NOTE | 2018-11-28 14:30 | EKG ---
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
--- NOTE | 2018-11-28 14:45 | PHYS DOC ---
Past Medical History Past Medical History: A-Fib, COPD, GERD, High Cholesterol, Hypertension, Hypotension, CO, Renal Failure, Other Additional Past Medical Histor: ORTHOSTATIC HYPOTENSION, CHRONIC HIP AND BACK PAIN Past Surgical History: Cholecystectomy, Pacemaker, Tonsillectomy, Other Additional Past Surgical Histo: TEMPORARY CHEST PORT DIALYSIS SHUNT, BACK Alcohol Use: Occasionally Drug Use: None Adult General Chief Complaint Chief Complaint: HYPOTENSION HPI HPI Patient is a 73 year old male who presents with hypotension at his PCP's office today. He states that he was also having slight dizziness. His office recommended he come to the emergency department for further evaluation. The patient states that he has been having an increasing cough over the past 2 weeks. He also does have some intermittent swelling to his lower extremities. He does have a history of COPD and has used his breathing treatments at home with little relief. Review of Systems Review of Systems Constitutional: Denies fever or chills [] Eyes: Denies change in visual acuity, redness, or eye pain [] HENT: Denies nasal congestion or sore throat [] Respiratory: See history of present illness Cardiovascular: No additional information not addressed in HPI [] GI: Denies abdominal pain, nausea, vomiting, bloody stools or diarrhea [] : Denies dysuria or hematuria [] Musculoskeletal: Denies back pain or joint pain [] Integument: Denies rash or skin lesions [] Neurologic: Denies headache, focal weakness or sensory changes [] Endocrine: Denies polyuria or polydipsia [] All other systems were reviewed and found to be within normal limits, except as documented in this note. Current Medications Current Medications Current Medications Medications (Trade) Dose Ordered Sig/Juanita Start Time Stop Time Status Last Admin Dose Admin Acetaminophen (Tylenol) 650 mg PRN Q4HRS PRN 11/28/18 16:00 11/29/18 15:59 Albuterol Sulfate (Ventolin Neb Soln) 10 mg 1X ONCE 11/28/18 13:45 11/28/18 13:47 DC 11/28/18 14:06 10 MG Albuterol/ Ipratropium (Duoneb) 3 ml RTQID 11/28/18 16:00 11/29/18 15:59 Fentanyl Citrate (Fentanyl 2ml Vial) 50 mcg PRN Q1HR PRN 11/28/18 16:00 11/29/18 15:59 Levofloxacin/ Dextrose 50 ml @ 50 mls/hr Q24H 11/29/18 16:00 Levofloxacin/ Dextrose (Levaquin Per Pharmacy) 1 each PRN DAILY PRN 11/28/18 16:00 Ondansetron HCl (Zofran) 4 mg PRN Q8HRS PRN 11/28/18 16:00 11/29/18 15:59 Sodium Chloride 1,000 ml @ 75 mls/hr [id number] 11/28/18 16:00 11/29/18 15:59 11/28/18 16:32 75 MLS/HR Allergies Allergies Allergies Coded Allergies Type Severity Reaction Last Updated Verified No Known Drug Allergies 08/19/13 No Physical Exam Physical Exam Constitutional: Well developed, well nourished, no acute distress, non-toxic appearance. [] HENT: Normocephalic, atraumatic, bilateral external ears normal, oropharynx moist, no oral exudates, nose normal. [] Eyes: PERRLA, EOMI, conjunctiva normal, no discharge. [] Neck: Normal range of motion, no tenderness, supple, no stridor. [] Cardiovascular:Heart rate regular rhythm, no murmur [] Lungs & Thorax: Bilateral breath sounds are decreased throughout Abdomen: Bowel sounds normal, soft, no tenderness, no masses, no pulsatile masses. [] Skin: Warm, dry, no erythema, no rash. [] Back: No tenderness, no CVA tenderness. [] Extremities: No tenderness, no cyanosis, no clubbing, ROM intact, no edema. [] Neurologic: Alert and oriented X 3, normal motor function, normal sensory function, no focal deficits noted. [] Psychologic: Affect normal, judgement normal, mood normal. [] Current Patient Data Vital Signs Vital Signs Date Time Temp Pulse Resp B/P (MAP) Pulse Ox O2 Delivery O2 Flow Rate FiO2 11/28/18 14:12 98 Room Air 11/28/18 13:49 98.2 88 18 110/75 (87) 98.2 Lab Values Laboratory Tests Test 11/28/18 14:42 White Blood Count 7.2 x10^3/uL (4.0-11.0) Red Blood Count 3.93 x10^6/uL (4.30-5.70) L Hemoglobin 12.4 g/dL (13.0-17.5) L Hematocrit 37.7 % (39.0-53.0) L Mean Corpuscular Volume 96 fL (79-100) Mean Corpuscular Hemoglobin 32 pg (25-35) Mean Corpuscular Hemoglobin Concent 33 g/dL (31-37) Red Cell Distribution Width 16.9 % (11.5-14.5) H Platelet Count 173 x10^3/uL (140-400) Neutrophils (%) (Auto) 75 % (31-73) H Lymphocytes (%) (Auto) 14 % (24-48) L Monocytes (%) (Auto) 9 % (0-9) Eosinophils (%) (Auto) 2 % (0-3) Basophils (%) (Auto) 1 % (0-3) Neutrophils # (Auto) 5.4 x10^3uL (1.8-7.7) Lymphocytes # (Auto) 1.0 x10^3/uL (1.0-4.8) Monocytes # (Auto) 0.6 x10^3/uL (0.0-1.1) Eosinophils # (Auto) 0.2 x10^3/uL (0.0-0.7) Basophils # (Auto) 0.1 x10^3/uL (0.0-0.2) Sodium Level 139 mmol/L (136-145) Potassium Level 4.8 mmol/L (3.5-5.1) Chloride Level 104 mmol/L (98-107) Carbon Dioxide Level 26 mmol/L (21-32) Anion Gap 9 (6-14) Blood Urea Nitrogen 19 mg/dL (8-26) Creatinine 2.0 mg/dL (0.7-1.3) H Estimated GFR (Cockcroft-Gault) 32.7 BUN/Creatinine Ratio 10 (6-20) Glucose Level 107 mg/dL (70-99) H Calcium Level 8.7 mg/dL (8.5-10.1) Total Bilirubin 1.8 mg/dL (0.2-1.0) H Aspartate Amino Transferase (AST) 20 U/L (15-37) Alanine Aminotransferase (ALT) 14 U/L (16-63) L Alkaline Phosphatase 126 U/L (46-116) H HB-Zuw-Q-Type Natriuretic Peptide 4674 pg/mL (0-449) H Total Protein 6.5 g/dL (6.4-8.2) Albumin 2.4 g/dL (3.4-5.0) L Albumin/Globulin Ratio 0.6 (1.0-1.7) L Laboratory Tests 11/28/18 14:42 Laboratory Tests 11/28/18 14:42 EKG EKG [] Radiology/Procedures Radiology/Procedures []Signed PATIENT: DUNCAN VALDIVIA ACCOUNT: [id number] : 1945 LOCATION: ER AGE: 73 SEX: M EXAM STATUS: REG ER ORD. PHYSICIAN: CUCA CACERES APRN REASON: cough, dizzy PROCEDURE: CHEST AP ONLY EXAM: AP View of the chest DATE: 11/28/2018 1:44 PM INDICATION: COUGH, DIZZY COMPARISON: CT chest 04/15/2018 FINDINGS: Heart is top normal in size. Aorta is tortuous with atherosclerotic calcifications. Patchy airspace opacities are seen in the right lung base. This may represent developing atelectasis or consolidation. Linear opacities bilateral lung bases likely scarring/atelectasis. No pleural effusion or pneumothorax. IMPRESSION: 1. Patchy airspace opacities right lung base likely developing consolidation or atelectasis. Radiographic follow-up to resolution is recommended. Electronically signed by: Alonzo Chahal MD (11/28/2018 2:11 PM) [id number] DICTATED and SIGNED BY: ALONZO CHAHAL MD DATE: 11/28/18 1411 Course & Med Decision Making Course & Med Decision Making Pertinent Labs and Imaging studies reviewed. (See chart for details) []The patient was given an hour long breathing treatment and Levaquin in the ED. He will be admitted to Dr. Proctor's service. Dragon Disclaimer Dragon Disclaimer This electronic medical record was generated, in whole or in part, using a voice recognition dictation system. Departure Departure Impression: Primary Impression: Pneumonia Disposition: 09 ADMITTED INPATIENT Admitting Physician: Patty Proctor Condition: STABLE Referrals: PATTY PROCTOR MD (PCP) CUCA CACERES APRN Nov 28, 2018 14:45
[2018-11-28 14:53] LABS: BASO # 0.1 x10^3/uL (0.0-0.2); BASO % 1 % (0-3); EOS # 0.2 x10^3/uL (0.0-0.7); EOS % 2 % (0-3); HEMATOCRIT 37.7 % (39.0-53.0); HEMOGLOBIN 12.4 g/dL (13.0-17.5); LYMPH % 14 % (24-48); MEAN CORPUSCULAR HEMOGLOBIN 32 pg (25-35); MEAN CORPUSCULAR HGB CONC 33 g/dL (31-37); MEAN CORPUSCULAR VOLUME 96 fL (79-100); MONO # 0.6 x10^3/uL (0.0-1.1); MONO % 9 % (0-9); NEUT # 5.4 x10^3uL (1.8-7.7); NEUT % 75 % (31-73); PLATELET COUNT 173 x10^3/uL (140-400); RED BLOOD COUNT 3.93 x10^6/uL (4.30-5.70); RED CELL DISTRIBUTION WIDTH 16.9 % (11.5-14.5); WHITE BLOOD COUNT 7.2 x10^3/uL (4.0-11.0)
[2018-11-28 15:03] LABS: CALCIUM 8.7 mg/dL (8.5-10.1); GFR 32.7; POTASSIUM 4.8 mmol/L (3.5-5.1)
[2018-11-28 15:15] LABS: ALBUMIN 2.4 g/dL (3.4-5.0); ALBUMIN/GLOBULIN RATIO 0.6 (1.0-1.7); TOTAL BILIRUBIN 1.8 mg/dL (0.2-1.0); TOTAL PROTEIN 6.5 g/dL (6.4-8.2)
[2018-11-28] MEDS ORDERED: IV NORMAL SALINE 1000ML BAG 1,000 ML IV SCH (16:00)
[2018-11-28] MEDS ORDERED: levOFLOXacin PER PHARMACY. MC PRN (16:00)
[2018-11-28] MEDS: IPRATRPIUM/ALBUTEROL 0.5/2.5MG 3 ML NEBU. NEB SCH ×2 (16:00→19:29)
[2018-11-28] MEDS ORDERED: ACETAMINOPHEN 325 MG TABLET. PO PRN (16:00)
[2018-11-28] MEDS ORDERED: ONDANSETRON PF 4 MG/2 ML VIAL. IV PRN (16:00)
[2018-11-28] MEDS ORDERED: fentaNYL PF VIAL 100 MCG/2 ML VIAL IV PRN (16:00)
[2018-11-28 19:00] VITALS: BP_SYST 104; BP_SYST 121; BP_SYST 96; BP_DIAS 49; BP_DIAS 60; BP_DIAS 65
[2018-11-28 23:00] VITALS: BP 116/67
[2018-11-29] MEDS ORDERED: MONT10TA9 PO (00:02)
[2018-11-29] MEDS ORDERED: FURO40TA4 PO (00:02)
[2018-11-29] MEDS ORDERED: CETI10TA22 PO (00:02)
[2018-11-29] MEDS ORDERED: BUDE0.5A NEB (00:02)
[2018-11-29] MEDS ORDERED: DILT180C2 PO (00:02)
[2018-11-29] MEDS ORDERED: IPRA3AMP29 NEB ×2 (00:02)
[2018-11-29] MEDS ORDERED: ALBU2.5V8 INH (00:02)
[2018-11-29] MEDS ORDERED: ASPI-612 PO (00:02)
[2018-11-29] MEDS ORDERED: DIGO125T PO (00:02)
[2018-11-29 03:00] VITALS: BP 113/69
[2018-11-29 06:07] LABS: BASO % 1 % (0-3); EOS # 0.1 x10^3/uL (0.0-0.7); EOS % 3 % (0-3); HEMATOCRIT 32.6 % (39.0-53.0); HEMOGLOBIN 10.4 g/dL (13.0-17.5); LYMPH # 0.8 x10^3/uL (1.0-4.8); LYMPH % 16 % (24-48); MEAN CORPUSCULAR HEMOGLOBIN 31 pg (25-35); MEAN CORPUSCULAR HGB CONC 32 g/dL (31-37); MEAN CORPUSCULAR VOLUME 96 fL (79-100); MONO # 0.4 x10^3/uL (0.0-1.1); MONO % 8 % (0-9); NEUT # 3.5 x10^3uL (1.8-7.7); NEUT % 73 % (31-73); PLATELET COUNT 133 x10^3/uL (140-400); RED BLOOD COUNT 3.39 x10^6/uL (4.30-5.70); RED CELL DISTRIBUTION WIDTH 17.5 % (11.5-14.5); WHITE BLOOD COUNT 4.9 x10^3/uL (4.0-11.0)
[2018-11-29 07:00] VITALS: BP 123/57
[2018-11-29 07:42] LABS: CALCIUM 7.9 mg/dL (8.5-10.1); CREATININE 1.6 mg/dL (0.7-1.3); GFR 42.3; POTASSIUM 3.9 mmol/L (3.5-5.1)
[2018-11-29] MEDS: IPRATRPIUM/ALBUTEROL 0.5/2.5MG 3 ML NEBU. NEB SCH ×4 (08:04→20:00)
[2018-11-29] MEDS ORDERED: ACETAMINOPHEN 325 MG TABLET. PO PRN (10:00)
[2018-11-29] MEDS ORDERED: NITROGLYCERIN SUBLINGUAL 0.4 MG BOTTLE OF 25. SL PRN (10:00)
[2018-11-29] MEDS ORDERED: MAGNESIUM HYDROXIDE 2,400 MG/30 ML ORAL.SUSP. PO PRN (10:00)
[2018-11-29] MEDS ORDERED: ALBUTEROL SULFATE 2.5 MG/3 ML NEBU. NEB PRN (10:15)
--- NOTE | 2018-11-29 10:31 | PDOC ---
Provider Note Provider Note Patient seen. History and Physical dictated. See dictation#[id number] Medications and allergies reviewed and reconciled. PATTY FALK MD Nov 29, 2018 10:31
[2018-11-29 11:00] VITALS: BP 113/65
[2018-11-29] MEDS: BUDESONIDE 0.5 MG/2 ML NEBU. NEB SCH ×2 (11:15→20:19)
--- NOTE | 2018-11-29 11:40 | CONS ---
DATE OF CONSULTATION: PULMONARY CONSULTATION ATTENDING PHYSICIAN: Dr. Hayden Proctor. REASON FOR CONSULTATION: Dyspnea and cough. HISTORY OF PRESENT ILLNESS: The patient is a 73-year-old male who presented to the hospital with complaint of some dizziness. The patient also had some increasing cough over the last few weeks. The cough has been mostly nonproductive. The patient has history of COPD. He is not on home oxygen. He had some mild swelling of the lower extremities. He says he has a chronic exertional dyspnea for last 6 months. His chest x-ray revealed mild patchy infiltrate, right base, with questionable prominent interstitial markings. He has a history of cardiac catheterization in 05/2018 and was found to have a significant 3-vessel coronary artery disease including left main coronary artery stenosis. His EF was 60%. He was considered a high surgical risk candidate. He underwent high risk stenting of the left main coronary artery and left anterior descending artery and right coronary artery and also, Impella assist device. No headaches, no nausea, vomiting, no diarrhea, no dysuria, no focal weakness. PAST MEDICAL HISTORY: History of AFib, history of COPD, GERD, dyslipidemia, hypertension, history of multivessel coronary artery disease, status post stenting, was a poor surgical candidate. PAST SURGICAL HISTORY: Cholecystectomy, pacemaker, tonsillectomy, and Impella device. ALLERGIES: None. CURRENT MEDICATIONS: Reviewed as listed in the [facility], including bronchodilators, Levaquin. REVIEW OF SYSTEMS: Twelve-point system obtained. Pertinent positives discussed in my history of present illness, otherwise noncontributory. All systems that were negative were reviewed as well. SOCIAL HISTORY: He has history of tobacco use, but no longer smokes. PHYSICAL EXAMINATION: VITAL SIGNS: Reviewed. Pulse ox 95% on room air. NECK: Supple. LUNGS: Diminished breath sounds. No crackles, no wheezes. CARDIOVASCULAR: Regular rate and rhythm. ABDOMEN: Soft and obese. EXTREMITIES: Trace pitting edema. LABORATORY DATA: Reviewed. White cell count 4.9, hemoglobin 10.4, and platelets of 133. BUN and creatinine 21 and 1.6. ProBNP is 4674. IMPRESSION: 1. The patient with dyspnea and cough. Cough has been present for last 2 weeks, nonproductive. A chest x-ray showing mild patchy opacity right lower lobe. Likely symptoms are related to pneumonia. We will obtain noncontrast CT chest for further evaluation. 2. The patient with chronic exertional dyspnea for the last 6 months. He has history of three vessel coronary artery disease. He was not an optimal surgical candidate and underwent high risk PCI/stents to left main coronary artery, left anterior descending artery, and right coronary artery. Also, Impella assist device. I would recommend follow up echocardiogram. 3. Underlying chronic obstructive pulmonary disease. 4. Obesity, but no history of sleep apnea. RECOMMENDATIONS: 1. Continue with present bronchodilators. 2. Continue present antibiotics. 3. Noncontrast CT chest to better assess for pneumonia. 4. Follow Cardiology recommendation. 5. Obtain echocardiogram. 6. We will do PFTs as an outpatient. 7. Further recommendations to follow. LIBRA NDIAYE MD DR: ADAN/nts JOB#: [id number] / [id number]
[2018-11-29 11:49] LABS: INFLUENZA A PATIENT NEGATIVE (NEGATIVE)
--- NOTE | 2018-11-29 11:49 | HP ---
ADMIT DATE: 11/28/2018 ADMITTING PHYSICIAN: Patty Falk MD. HISTORY OF PRESENT ILLNESS: This 73-year-old male presented to my office yesterday with complaints of cough, congestion and fatigue along with nasal drainage, getting worse for 3 weeks prior to admission. The patient also became lightheaded and dizzy. The patient had lost 13 pounds in about 5 weeks. He also had pain in the lower extremities. In the office, the patient was evaluated, and he was noted to have hypotension with a systolic blood pressure of 78/52. Because of the hypotension and exacerbation of COPD and weight loss, the patient was sent to [facility] Emergency Room. In the Emergency Room, the patient's blood pressure had improved and was started on IV fluids. Sodium was 139, potassium was 4.8, BUN 19, creatinine 2. BNP was 4674. AST 20, ALT 14, total bilirubin 1.8, glucose 107. Albumin was 2.4. White count 7.2, hemoglobin 12.4 and platelet count is 173,000. Chest x-ray showed patchy airspace opacities in the right lung base likely developing consolidation or atelectasis. The patient was admitted because of acute renal failure and pneumonia and exacerbation of COPD. REVIEW OF SYSTEMS: At present time, the patient is sleeping and he is in deep sleep and I am unable to wake him up. Unable to do full systems review, discussed with staff, the patient has had no significant complaints this morning. PAST MEDICAL HISTORY: The patient is known to have hypertension, gout, hyperlipidemia, knee pain, atrial fibrillation, systolic heart failure, coronary artery disease, gastritis, hypothyroidism, left-sided low back pain with sciatica, morbid obesity, chronic obstructive pulmonary disease, avascular necrosis of the bone of the left hip, recurrent bronchitis, colonic polyps, esophagitis, history of cardiac arrhythmia in 2012 with pacemaker placement in 2012. The patient had tubulovillous polyps removed on 03/09/2013. History of alcoholism in 2012. Acute myocardial infarction, status post PTCA in 2012. Compression fractures of thoracic spine in 2012. History of sepsis and acute renal failure in 2012. History of erosive gastritis, coronary artery disease. The patient had a stent placed in right coronary artery on 06/16/2018. PAST SURGICAL HISTORY: The patient also has cataracts, back surgery, adenoidectomy, stent placed in coronary artery in 04/2018. Had PTCA in 2012, pacemaker placement in 2012, EGD with biopsy and colonoscopy with polypectomy, also had subarachnoid hemorrhage post-syncopal fall with facial trauma and hematoma, also has had tonsillectomy and cholecystectomy. ALLERGIES: None known any. FAMILY HISTORY: Eight brothers have coronary artery disease. Father and brother had congestive heart failure. Sister also had congestive heart failure. Father and brother had diabetes mellitus. SOCIAL HISTORY: No history of drug abuse. History of alcoholism and is a former smoker. He is . PHYSICAL EXAMINATION: GENERAL: The patient is an elderly male who is currently sleeping. VITAL SIGNS: His blood pressure was 103/51 and then 96/57 on admission. Temperature 97.9, pulse 105 per minute, respirations 18 per minute. Blood pressure then dropped to 96/49. This morning, systolic blood pressure is 123/57 mmHg. GENERAL: The patient is in deep sleep. He is also hard of hearing, unable to wake him up. He is in mild distress. SKIN: Warm and dry. There is no cyanosis. HEENT: Unable to examine. NECK: Supple. JVP normal. No thyromegaly. Trachea midline. LUNGS: Decreased breath sounds at bases with bilateral coarse breath sounds. CARDIOVASCULAR: S1, S2 regular with extra beats. ABDOMEN: Soft, nontender, no guarding, no rigidity. Bowel sounds present. EXTREMITIES: No edema at this time. CENTRAL NERVOUS SYSTEM: Sleeping. LABORATORY FINDINGS: As noted earlier, today, hemoglobin has dropped to 10.4. WBC count is 4.9. Sodium 141, potassium 3.9, BUN 21 and creatinine has decreased to 1.6. IMPRESSION: 1. Pneumonia. 2. Acute atrial fibrillation. 3. Exacerbation of chronic obstructive pulmonary disease. 4. Acute hypotension. 5. Acute renal failure with chronic kidney disease. 6. Severe protein calorie malnutrition. Albumin is 2.4. 7. Morbid obesity. 8. Coronary artery disease, status post PTCA and a stent placement in right coronary artery, also has a history of myocardial infarction. 9. Esophagitis. 10. Compression fractures of thoracic spine in 2012. 11. History of gastroesophageal reflux disease with esophagitis. 12. History of erosive gastritis. 13. History of systolic heart failure. 14. Gout. 15. Allergies. 16. Morbid obesity. 17. Osteoarthritis. 18. History of avascular necrosis of hip. The patient's acute renal failure is due to vasomotor nephropathy. PLAN: Even though the patient's BNP is elevated, clinically, he appears to be dehydrated. Continue IV fluids, monitor for drop in hemoglobin which is likely dilutional. I will consult Dr. Mendez for pulmonary evaluation and management and Dr. Traore for cardiology evaluation and management because of the high BNP and history of coronary artery disease. High BNP may be due to his acute renal failure also. Continue IV fluids. Continue IV Levaquin and breathing treatments and other medications, monitor for low blood pressure. For details, please review the orders. Long-term as well as short-term prognosis of this patient is poor. TSH is stable. I will order a hemoglobin A1c in the morning, and I will also order TSH in the morning to evaluate his weight loss. For details, please refer to the orders. PATTY FALK MD DR: SAM/allison JOB#: [id number] / [id number]
[2018-11-29 11:51] LABS: INFLUENZA B PATIENT POSITIVE (NEGATIVE)
--- NOTE | 2018-11-29 12:46 | NUR ---
IP: Pt is influenza + requiring droplet precautions for 5 days and 24 hours without a fever, whichever is longest.
--- NOTE | 2018-11-29 12:48 | PDOC2 ---
CARDIAC CONSULT DATE OF CONSULT Date of Consult DATE: 11/29/18 TIME: 12:27 REASON FOR CONSULT Reason for Consult: Elevated BNP REFERRING PHYSICIAN Referring Physician: Hitesh SOURCE Source: Chart review, Patient HISTORY OF PRESENT ILLNESS HISTORY OF PRESENT ILLNESS This is a pleasant 73 yo male admitted for complains of cough and SOA and dizziness. Reports that he does have chronic cough but his cough has increased since Wednesday last week. Also with some SOA and noted at some point with leg swelling but currently now absent. He has not been feeling good lately and feeling weak. He does get dizzy when upright but has not been drinking well. No chest pain or palpitations. No nausea or vomiting or diarrhea. No recorded fever or chills. PAST MEDICAL HISTORY Cardiovascular: AFIB (chronic), CAD, CHF, HTN, Hyperlipidemia, Other (venous insufficiency with past RF ablation to RLE; mild PAD; ICM) Pulmonary: COPD CENTRAL NERVOUS SYSTEM: Other (No pertinent history) GI: GERD Heme/Onc: Anemia NOS Psych: No pertinent hx Musculoskeletal: Osteoarthritis Rheumatologic: No pertinent hx Infectious disease: No pertinent hx ENT: No pertinent hx Renal/: Chronic renal insuff, Benign prostatic enlarg. Endocrine: Hypothyroidism Dermatology: No pertinent hx PAST SURGICAL HISTORY Past Surgical History: Pacemaker (due to symptomatic bradycardia), Cholecystectomy, Other (back surgery; PCI/NASIM to 3VD; back surgery) FAMILY HISTORY Family History: Heart Disease (father) SOCIAL HISTORY Smoke: Quit ALCOHOL: none Drugs: None Lives: with Family CURRENT MEDICATIONS CURRENT MEDICATIONS Current Medications Medications (Trade) Dose Ordered Sig/Juanita Route PRN Reason Start Time Stop Time Status Last Admin Dose Admin Albuterol Sulfate (Ventolin Neb Soln) 10 mg 1X ONCE CONT NEB 11/28/18 13:45 11/28/18 13:47 DC 11/28/18 14:06 Sodium Chloride 1,000 ml @ 75 mls/hr [id number] IV 11/28/18 16:00 11/29/18 10:19 DC 11/28/18 16:32 Albuterol/ Ipratropium (Duoneb) 3 ml RTQID NEB 11/28/18 16:00 11/29/18 10:14 DC 11/29/18 08:04 Levofloxacin/ Dextrose 100 ml @ 100 mls/hr 1X ONCE IV 11/28/18 16:00 11/28/18 16:59 DC 11/28/18 16:29 Budesonide (Pulmicort) 0.5 mg BID NEB 11/29/18 11:00 11/29/18 11:15 Albuterol/ Ipratropium (Duoneb) 3 ml RTQID NEB 11/29/18 12:00 11/29/18 11:15 Potassium Chloride/Sodium Chloride 1,000 ml @ 75 mls/hr [id number] IV 11/29/18 11:00 11/29/18 11:35 ALLERGIES ALLERGIES: Coded Allergies: No Known Drug Allergies (Unverified , 08/19/13) ROS Review of System 14 point ROS evaluated with pertinent positives noted per HPI PHYSICAL EXAM General: Alert, Oriented X3, Cooperative, No acute distress HEENT: Atraumatic, Mucous membr. moist/pink Lungs: Other (diminished bases) Heart: Other (distant heart sounds; AFIB rate controlled) Extremities: No cyanosis, No edema Skin: No breakdown, No significant lesion Neuro: Normal speech, Sensation intact Psych/Mental Status: Mental status NL, Mood NL MUSCULOSKELETAL: Full range of motion without pain, Osteoarthritic changes both hands VITALS VITALS Vital Signs Date Time Temp Pulse Resp B/P (MAP) Pulse Ox O2 Delivery O2 Flow Rate FiO2 11/29/18 11:15 98 Room Air 11/29/18 11:00 98.1 81 17 113/65 (81) 98.1 LABS Lab: Laboratory Tests Test 11/28/18 14:42 11/29/18 05:50 11/29/18 10:00 White Blood Count 7.2 x10^3/uL (4.0-11.0) 4.9 x10^3/uL (4.0-11.0) Red Blood Count 3.93 x10^6/uL (4.30-5.70) 3.39 x10^6/uL (4.30-5.70) Hemoglobin 12.4 g/dL (13.0-17.5) 10.4 g/dL (13.0-17.5) Hematocrit 37.7 % (39.0-53.0) 32.6 % (39.0-53.0) Mean Corpuscular Volume 96 fL (79-100) 96 fL (79-100) Mean Corpuscular Hemoglobin 32 pg (25-35) 31 pg (25-35) Mean Corpuscular Hemoglobin Concent 33 g/dL (31-37) 32 g/dL (31-37) Red Cell Distribution Width 16.9 % (11.5-14.5) 17.5 % (11.5-14.5) Platelet Count 173 x10^3/uL (140-400) 133 x10^3/uL (140-400) Neutrophils (%) (Auto) 75 % (31-73) 73 % (31-73) Lymphocytes (%) (Auto) 14 % (24-48) 16 % (24-48) Monocytes (%) (Auto) 9 % (0-9) 8 % (0-9) Eosinophils (%) (Auto) 2 % (0-3) 3 % (0-3) Basophils (%) (Auto) 1 % (0-3) 1 % (0-3) Neutrophils # (Auto) 5.4 x10^3uL (1.8-7.7) 3.5 x10^3uL (1.8-7.7) Lymphocytes # (Auto) 1.0 x10^3/uL (1.0-4.8) 0.8 x10^3/uL (1.0-4.8) Monocytes # (Auto) 0.6 x10^3/uL (0.0-1.1) 0.4 x10^3/uL (0.0-1.1) Eosinophils # (Auto) 0.2 x10^3/uL (0.0-0.7) 0.1 x10^3/uL (0.0-0.7) Basophils # (Auto) 0.1 x10^3/uL (0.0-0.2) 0.0 x10^3/uL (0.0-0.2) Sodium Level 139 mmol/L (136-145) 141 mmol/L (136-145) Potassium Level 4.8 mmol/L (3.5-5.1) 3.9 mmol/L (3.5-5.1) Chloride Level 104 mmol/L (98-107) 106 mmol/L (98-107) Carbon Dioxide Level 26 mmol/L (21-32) 25 mmol/L (21-32) Anion Gap 9 (6-14) 10 (6-14) Blood Urea Nitrogen 19 mg/dL (8-26) 21 mg/dL (8-26) Creatinine 2.0 mg/dL (0.7-1.3) 1.6 mg/dL (0.7-1.3) Estimated GFR (Cockcroft-Gault) 32.7 42.3 BUN/Creatinine Ratio 10 (6-20) Glucose Level 107 mg/dL (70-99) 82 mg/dL (70-99) Calcium Level 8.7 mg/dL (8.5-10.1) 7.9 mg/dL (8.5-10.1) Total Bilirubin 1.8 mg/dL (0.2-1.0) Aspartate Amino Transf (AST/SGOT) 20 U/L (15-37) Alanine Aminotransferase (ALT/SGPT) 14 U/L (16-63) Alkaline Phosphatase 126 U/L (46-116) XT-Uts-L-Type Natriuretic Peptide 4674 pg/mL (0-449) Total Protein 6.5 g/dL (6.4-8.2) Albumin 2.4 g/dL (3.4-5.0) Albumin/Globulin Ratio 0.6 (1.0-1.7) Influenza Type A Antigen Negative (NEGATIVE) Influenza Type B Antigen Positive (NEGATIVE) ECHOCARDIOGRAM ECHOCARDIOGRAM <Conclusion> The left ventricular systolic function is normal. The Ejection Fraction is 55-60%. There is normal LV segmental wall motion. Trace mitral regurgitation. Trace tricuspid regurgitation. The PA pressure was estimated at 25 mmHg. There is no evidence of significant pericardial effusion. DATE: 04/27/18 1158 STRESS TEST STRESS TEST Conclusion 1. No evidence of EKG changes with stress testing. 2. Normal perfusion at stress/rest. 3. Low risk study. 4. EF > 60%. DATE: 11/15/18 1132 HEART CATH HEART CATH Conclusion Successful high risk PCI/drug eluting stents placement to the left main coronary artery, left anterior descending artery and right coronary artery with the help of hemodynamic support from Impella percutaneous ventricular assist device. Recommendations 1. Aspirin 325 mg daily 2. Plavix 75 mg daily for preferably one year 3. Cardiovascular risk factor modification. DATE: 05/24/18 1421 ASSESSMENT/PLAN ASSESSMENT/PLAN 1. FLU B 2. Dyspnea: multifactorial with possible viral pneumonia, COPD with mild diastolic CHF contributing to elevated pro NT BNP. CT chest pending Pulmonary following 3. Hypotension: possible orthostasis with contributing hydration inadequacy 4. Chronic AFIB: rate controlled 5. CAD: prior 3vd with stent placement. Clinically stable, recent normal MPI with EF>60% 6. HTN: normotensive currently 7. HLP 8. CKD: suspect stage 3 9. Hx of symptomatic bradycardia: PPM in situ. Medtronic. VVIR. 10. Hypothyroidism: on replacement Recommendations 1. TTE. Check UA. Resume ASA and plavix. 2. Check orthostatic readings. Continue with digoxin and also cardizem if tolerated. 3. Continue secondary prevention measures 4. Encouraged hydration adequacy KASHMIR ADLER APRN Nov 29, 2018 12:48
[2018-11-29] MEDS: ASPIRIN ENTERIC COATED 81 MG TABLET.DR. PO SCH (13:08)
[2018-11-29] MEDS: CETIRIZINE HCL 10 MG TABLET. PO SCH (13:08)
[2018-11-29] MEDS: CLOPIDOGREL BISULFATE 75 MG TABLET PO SCH (13:08)
[2018-11-29] MEDS: LEVOTHYROXINE 100 MCG TABLET PO SCH (13:08)
[2018-11-29] MEDS: FOLIC ACID 1 MG TABLET. PO SCH (13:09)
[2018-11-29] MEDS: PANTOPRAZOLE 40 MG TABLET.DR. PO SCH (13:09)
[2018-11-29] MEDS: TAMSULOSIN 0.4 MG CAP.ER.24H. PO SCH (13:09)
[2018-11-29] MEDS: DIGOXIN 125 MCG TABLET. PO SCH (13:10)
--- NOTE | 2018-11-29 13:37 | RAD ---
PQRS Compliance statement: One or more of the following individualized dose reduction techniques were utilized for this examination: 1. Automated exposure control. 2. Adjustment of the mA and/or kV according to patient size. 3. Use of iterative reconstruction technique. Indication:PNEUMONIA TECHNIQUE: CT chest without IV contrast with multiplanar reformats. COMPARISON: 05/02/2018 FINDINGS: Left chest wall Chemo-Port is seen with its leads in the right heart. Heart is normal in size. No pericardial or pleural effusion. Coronary artery calcifications. No enlarged axillary, mediastinal adenopathy. Evaluation of hilar lymphadenopathy is limited due to lack of IV contrast. Central airways are patent. Bilateral subpleural reticular opacities are seen. Stable ill-defined multiple opacities are seen for example the opacity in the right lower lobe measuring 1.6 cm (series 2 image 40), previously 1.6 cm. The opacity in the right upper lobe measures 1.7 cm (series 2 image 24), previously 1.7 cm. Noncontrast sections through the liver, spleen, pancreas, adrenals within normal limits. Multiple bilateral low attenuating lesions in the kidneys most likely simple cysts. Mild diffuse atherosclerotic disease of the visualized abdominal aorta. No suspicious bony lesion. Multiple compression deformities are redemonstrated in the thoracic spine. Kyphoplasty changes in the lower thoracic vertebral bodies. IMPRESSION: 1. Stable bilateral ill-defined opacities with bilateral subpleural reticular opacities. Findings are likely secondary to interstitial fibrosis. Follow-up CT chest in 6-8 months recommended. Electronically signed by: Jeb Proctor DO (11/29/2018 1:34 PM) [facility]
[2018-11-29] MEDS: CYANOCOBALAMIN (VITAMIN B-12) 100 MCG TABLET PO SCH (14:41)
[2018-11-29] MEDS: OSELTAMIVIR 30 MG CAPSULE PO SCH ×2 (14:42→21:23)
[2018-11-29] MEDS: MAGNESIUM OXIDE 400 MG TABLET PO SCH ×2 (14:42→21:23)
[2018-11-29] MEDS: HEPARIN for SUB-Q USE 5,000 UNIT/ML VIAL. SQ SCH ×2 (14:48→21:30)
[2018-11-29 15:00] VITALS: BP 130/77
[2018-11-29 19:00] VITALS: BP 118/67
[2018-11-29] MEDS: SIMVASTATIN 20 MG TABLET PO SCH (21:23)
[2018-11-29] MEDS: LACTOBACILLUS RHAMNOSUS GG 1 CAPSULE. PO SCH (21:23)
[2018-11-29] MEDS: MONTELUKAST SODIUM 10 MG TABLET. PO SCH (21:23)
[2018-11-29 22:54] VITALS: BP 104/56
[2018-11-30 03:00] VITALS: BP 109/45
[2018-11-30] MEDS: LEVOTHYROXINE 100 MCG TABLET PO SCH (05:48)
[2018-11-30 07:00] VITALS: BP 130/89
[2018-11-30 07:16] LABS: BILIRUBIN,URINE SMALL (NEG); CLARITY,URINE CLEAR; COLOR,URINE AMBER; NITRITE,URINE NEGATIVE (NEG); PROTEIN,URINE NEGATIVE (NEG-TRACE)
[2018-11-30 07:26] LABS: BACTERIA,URINE FEW /HPF (0-FEW); HYALINE CASTS, URINE OCCASIONAL /HPF; RBC,URINE OCC /HPF (0-2); SQUAMOUS EPITHELIAL CELL,UR FEW /LPF
[2018-11-30] MEDS: IPRATRPIUM/ALBUTEROL 0.5/2.5MG 3 ML NEBU. NEB SCH ×4 (07:36→20:01)
[2018-11-30] MEDS: BUDESONIDE 0.5 MG/2 ML NEBU. NEB SCH ×2 (07:36→20:01)
[2018-11-30 08:00] LABS: BASO % 1 % (0-3); EOS # 0.2 x10^3/uL (0.0-0.7); EOS % 6 % (0-3); HEMATOCRIT 31.4 % (39.0-53.0); HEMOGLOBIN 10.4 g/dL (13.0-17.5); LYMPH # 0.7 x10^3/uL (1.0-4.8); LYMPH % 18 % (24-48); MEAN CORPUSCULAR HEMOGLOBIN 32 pg (25-35); MEAN CORPUSCULAR HGB CONC 33 g/dL (31-37); MEAN CORPUSCULAR VOLUME 95 fL (79-100); MONO # 0.3 x10^3/uL (0.0-1.1); MONO % 7 % (0-9); NEUT # 2.6 x10^3uL (1.8-7.7); NEUT % 68 % (31-73); PLATELET COUNT 131 x10^3/uL (140-400); RED CELL DISTRIBUTION WIDTH 17.2 % (11.5-14.5); WHITE BLOOD COUNT 3.7 x10^3/uL (4.0-11.0)
[2018-11-30] MEDS: PANTOPRAZOLE 40 MG TABLET.DR. PO SCH (08:16)
[2018-11-30 08:18] LABS: CREATININE 1.6 mg/dL (0.7-1.3); GFR 42.3; MAGNESIUM 1.6 mg/dL (1.8-2.4)
[2018-11-30] MEDS: LACTOBACILLUS RHAMNOSUS GG 1 CAPSULE. PO SCH ×2 (08:18→21:11)
[2018-11-30] MEDS: TAMSULOSIN 0.4 MG CAP.ER.24H. PO SCH (08:18)
[2018-11-30] MEDS: FOLIC ACID 1 MG TABLET. PO SCH (08:19)
[2018-11-30] MEDS: MAGNESIUM OXIDE 400 MG TABLET PO SCH ×3 (08:19→21:11)
[2018-11-30] MEDS: OSELTAMIVIR 30 MG CAPSULE PO SCH ×2 (08:19→21:11)
[2018-11-30] MEDS: CETIRIZINE HCL 10 MG TABLET. PO SCH (08:19)
[2018-11-30] MEDS: CYANOCOBALAMIN (VITAMIN B-12) 100 MCG TABLET PO SCH (08:19)
[2018-11-30] MEDS: CLOPIDOGREL BISULFATE 75 MG TABLET PO SCH (08:19)
[2018-11-30] MEDS: ASPIRIN ENTERIC COATED 81 MG TABLET.DR. PO SCH (08:19)
[2018-11-30] MEDS: DIGOXIN 125 MCG TABLET. PO SCH (08:26)
--- NOTE | 2018-11-30 08:30 | NUR ---
Cardizem held this am related to the orthostatic blood pressures. Lanoxin was given; he is tachy. occasionally has a non productive cough. remains on droplet precautions
--- NOTE | 2018-11-30 08:52 | NUR ---
SW following pt for anticipated dc needs. Chart reviewed. Pt lives at home with spouse and on room air. No discharge recommendation/SW needs noted at this time. Will continue to follow.
--- NOTE | 2018-11-30 09:07 | PDOC ---
CARDIO Progress Notes Date and Time Date of Service 11/30/2018 Time of Evaluation 0850 Subjective Subjective: No Chest Pain, No shortness of breath, No Palpitations, Other ( feels better today) Vitals Vitals Vital Signs Date Time Temp Pulse Resp B/P (MAP) Pulse Ox O2 Delivery O2 Flow Rate FiO2 11/30/18 08:26 96 108/46 11/30/18 07:37 97 Room Air 11/30/18 03:00 97.5 18 97.5 Weight Weight [ ] Input and Output Intake and Output Intake and Output 11/30/18 07:00 Intake Total 750 ml Balance 750 ml Intake Oral 750 ml # Voids 2 # Bowel Movements 1 Laboratory Labs Laboratory Tests Test 11/29/18 10:00 11/29/18 13:03 11/30/18 05:55 11/30/18 07:11 Influenza Type A Antigen Negative (NEGATIVE) Influenza Type B Antigen Positive (NEGATIVE) Lactic Acid Level 2.4 mmol/L (0.4-2.0) Urine Collection Type Unknown Urine Color Kayla Urine Clarity Clear Urine pH 6.0 Urine Specific [place] 1.025 Urine Protein Negative mg/dL (NEG-TRACE) Urine Glucose (UA) Negative mg/dL (NEG) Urine Ketones (Stick) Trace mg/dL (NEG) Urine Blood Negative (NEG) Urine Nitrite Negative (NEG) Urine Bilirubin Small (NEG) Urine Urobilinogen Dipstick 1.0 mg/dL (0.2 mg/dL) Urine Leukocyte Esterase Negative (NEG) Urine RBC Occ /HPF (0-2) Urine WBC 1-4 /HPF (0-4) Urine Squamous Epithelial Cells Few /LPF Urine Bacteria Few /HPF (0-FEW) Urine Hyaline Casts Occasional /HPF Urine Mucus Mod /LPF White Blood Count 3.7 x10^3/uL (4.0-11.0) Red Blood Count 3.30 x10^6/uL (4.30-5.70) Hemoglobin 10.4 g/dL (13.0-17.5) Hematocrit 31.4 % (39.0-53.0) Mean Corpuscular Volume 95 fL (79-100) Mean Corpuscular Hemoglobin 32 pg (25-35) Mean Corpuscular Hemoglobin Concent 33 g/dL (31-37) Red Cell Distribution Width 17.2 % (11.5-14.5) Platelet Count 131 x10^3/uL (140-400) Neutrophils (%) (Auto) 68 % (31-73) Lymphocytes (%) (Auto) 18 % (24-48) Monocytes (%) (Auto) 7 % (0-9) Eosinophils (%) (Auto) 6 % (0-3) Basophils (%) (Auto) 1 % (0-3) Neutrophils # (Auto) 2.6 x10^3uL (1.8-7.7) Lymphocytes # (Auto) 0.7 x10^3/uL (1.0-4.8) Monocytes # (Auto) 0.3 x10^3/uL (0.0-1.1) Eosinophils # (Auto) 0.2 x10^3/uL (0.0-0.7) Basophils # (Auto) 0.0 x10^3/uL (0.0-0.2) Sodium Level 141 mmol/L (136-145) Potassium Level 4.0 mmol/L (3.5-5.1) Chloride Level 108 mmol/L (98-107) Carbon Dioxide Level 23 mmol/L (21-32) Anion Gap 10 (6-14) Blood Urea Nitrogen 17 mg/dL (8-26) Creatinine 1.6 mg/dL (0.7-1.3) Estimated GFR (Cockcroft-Gault) 42.3 Glucose Level 94 mg/dL (70-99) Calcium Level 8.0 mg/dL (8.5-10.1) Magnesium Level 1.6 mg/dL (1.8-2.4) Thyroid Stimulating Hormone (TSH) 1.794 uIU/mL (0.358-3.74) Physical Exam HEENT: Neck Supple W Full Motion Chest: Symmetric LUNGS: Other (diffuse wheeze with basilar crackles) Abdomen: Soft N/T Extremities: No Calf Tenderness Neurology: alert, oriented, follow commands Assessment Assessment 1. FLU B with pancytopenia 2. Dyspnea: multifactorial with possible viral pneumonia, COPD/fibrosis with mild diastolic CHF. SOA and cough better 3. Possible early sepsis, +orthostasis 4. Chronic AFIB: rate controlled. EF and WM nml 5. CAD: prior 3vd with stent placement. Clinically stable, recent normal MPI with EF>60% 6. HTN: 7. HLP 8. CKD: suspect stage 3 9. Hx of symptomatic bradycardia: PPM in situ. Medtronic. VVIR. Normal functioning device. 10. Hypothyroidism: on replacement Recommendations 1. Continue ASA and plavix. IVF. Mechanical compression 2. Continue with digoxin, discussed with RN, hold cardizem today. 3. Continue secondary prevention measures 4. Encouraged hydration adequacy, IVF, rplace Mg. KASHMIR ADLER APRN Nov 30, 2018 09:07
--- NOTE | 2018-11-30 09:23 | PDOC ---
IM PROGRESS NOTES- Subjective Subjective Feeling better. Continues to have some cough and congestion. Denies any abdominal pain or nausea. Objective Vitals Vital Signs Date Time Temp Pulse Resp B/P (MAP) Pulse Ox O2 Delivery O2 Flow Rate FiO2 11/30/18 08:26 96 108/46 11/30/18 07:37 97 Room Air 11/30/18 03:00 97.5 18 97.5 Input & Output Intake and Output 11/30/18 07:00 Intake Total 750 ml Balance 750 ml Intake Oral 750 ml # Voids 2 # Bowel Movements 1 Physical Exam Physical Exam General appearance - alert,ill appearing, and in no distress and oriented to person, place, and time Mental Status - alert, oriented to person, place, and time, affect appropriate to mood Head - normal Chest -few bilateral wheezes with decreased breath sounds at bases. Heart - S1 and S2 irregular Abdomen - soft, nontender, nondistended, no masses or organomegaly Neurological - alert and oriented Musculoskeletal - no muscular tenderness noted Extremities - no pedal edema Skin - warm and dry Labs Laboratory Tests Test 11/28/18 14:42 11/29/18 05:50 11/29/18 10:00 11/29/18 13:03 White Blood Count 7.2 x10^3/uL (4.0-11.0) 4.9 x10^3/uL (4.0-11.0) Red Blood Count 3.93 x10^6/uL (4.30-5.70) 3.39 x10^6/uL (4.30-5.70) Hemoglobin 12.4 g/dL (13.0-17.5) 10.4 g/dL (13.0-17.5) Hematocrit 37.7 % (39.0-53.0) 32.6 % (39.0-53.0) Mean Corpuscular Volume 96 fL (79-100) 96 fL (79-100) Mean Corpuscular Hemoglobin 32 pg (25-35) 31 pg (25-35) Mean Corpuscular Hemoglobin Concent 33 g/dL (31-37) 32 g/dL (31-37) Red Cell Distribution Width 16.9 % (11.5-14.5) 17.5 % (11.5-14.5) Platelet Count 173 x10^3/uL (140-400) 133 x10^3/uL (140-400) Neutrophils (%) (Auto) 75 % (31-73) 73 % (31-73) Lymphocytes (%) (Auto) 14 % (24-48) 16 % (24-48) Monocytes (%) (Auto) 9 % (0-9) 8 % (0-9) Eosinophils (%) (Auto) 2 % (0-3) 3 % (0-3) Basophils (%) (Auto) 1 % (0-3) 1 % (0-3) Neutrophils # (Auto) 5.4 x10^3uL (1.8-7.7) 3.5 x10^3uL (1.8-7.7) Lymphocytes # (Auto) 1.0 x10^3/uL (1.0-4.8) 0.8 x10^3/uL (1.0-4.8) Monocytes # (Auto) 0.6 x10^3/uL (0.0-1.1) 0.4 x10^3/uL (0.0-1.1) Eosinophils # (Auto) 0.2 x10^3/uL (0.0-0.7) 0.1 x10^3/uL (0.0-0.7) Basophils # (Auto) 0.1 x10^3/uL (0.0-0.2) 0.0 x10^3/uL (0.0-0.2) Sodium Level 139 mmol/L (136-145) 141 mmol/L (136-145) Potassium Level 4.8 mmol/L (3.5-5.1) 3.9 mmol/L (3.5-5.1) Chloride Level 104 mmol/L (98-107) 106 mmol/L (98-107) Carbon Dioxide Level 26 mmol/L (21-32) 25 mmol/L (21-32) Anion Gap 9 (6-14) 10 (6-14) Blood Urea Nitrogen 19 mg/dL (8-26) 21 mg/dL (8-26) Creatinine 2.0 mg/dL (0.7-1.3) 1.6 mg/dL (0.7-1.3) Estimated GFR (Cockcroft-Gault) 32.7 42.3 BUN/Creatinine Ratio 10 (6-20) Glucose Level 107 mg/dL (70-99) 82 mg/dL (70-99) Calcium Level 8.7 mg/dL (8.5-10.1) 7.9 mg/dL (8.5-10.1) Total Bilirubin 1.8 mg/dL (0.2-1.0) Aspartate Amino Transf (AST/SGOT) 20 U/L (15-37) Alanine Aminotransferase (ALT/SGPT) 14 U/L (16-63) Alkaline Phosphatase 126 U/L (46-116) YV-Oto-Q-Type Natriuretic Peptide 4674 pg/mL (0-449) Total Protein 6.5 g/dL (6.4-8.2) Albumin 2.4 g/dL (3.4-5.0) Albumin/Globulin Ratio 0.6 (1.0-1.7) Influenza Type A Antigen Negative (NEGATIVE) Influenza Type B Antigen Positive (NEGATIVE) Lactic Acid Level 2.4 mmol/L (0.4-2.0) Test 11/30/18 05:55 11/30/18 07:11 Urine Collection Type Unknown Urine Color Kayla Urine Clarity Clear Urine pH 6.0 Urine Specific [place] 1.025 Urine Protein Negative mg/dL (NEG-TRACE) Urine Glucose (UA) Negative mg/dL (NEG) Urine Ketones (Stick) Trace mg/dL (NEG) Urine Blood Negative (NEG) Urine Nitrite Negative (NEG) Urine Bilirubin Small (NEG) Urine Urobilinogen Dipstick 1.0 mg/dL (0.2 mg/dL) Urine Leukocyte Esterase Negative (NEG) Urine RBC Occ /HPF (0-2) Urine WBC 1-4 /HPF (0-4) Urine Squamous Epithelial Cells Few /LPF Urine Bacteria Few /HPF (0-FEW) Urine Hyaline Casts Occasional /HPF Urine Mucus Mod /LPF White Blood Count 3.7 x10^3/uL (4.0-11.0) Red Blood Count 3.30 x10^6/uL (4.30-5.70) Hemoglobin 10.4 g/dL (13.0-17.5) Hematocrit 31.4 % (39.0-53.0) Mean Corpuscular Volume 95 fL (79-100) Mean Corpuscular Hemoglobin 32 pg (25-35) Mean Corpuscular Hemoglobin Concent 33 g/dL (31-37) Red Cell Distribution Width 17.2 % (11.5-14.5) Platelet Count 131 x10^3/uL (140-400) Neutrophils (%) (Auto) 68 % (31-73) Lymphocytes (%) (Auto) 18 % (24-48) Monocytes (%) (Auto) 7 % (0-9) Eosinophils (%) (Auto) 6 % (0-3) Basophils (%) (Auto) 1 % (0-3) Neutrophils # (Auto) 2.6 x10^3uL (1.8-7.7) Lymphocytes # (Auto) 0.7 x10^3/uL (1.0-4.8) Monocytes # (Auto) 0.3 x10^3/uL (0.0-1.1) Eosinophils # (Auto) 0.2 x10^3/uL (0.0-0.7) Basophils # (Auto) 0.0 x10^3/uL (0.0-0.2) Sodium Level 141 mmol/L (136-145) Potassium Level 4.0 mmol/L (3.5-5.1) Chloride Level 108 mmol/L (98-107) Carbon Dioxide Level 23 mmol/L (21-32) Anion Gap 10 (6-14) Blood Urea Nitrogen 17 mg/dL (8-26) Creatinine 1.6 mg/dL (0.7-1.3) Estimated GFR (Cockcroft-Gault) 42.3 Glucose Level 94 mg/dL (70-99) Calcium Level 8.0 mg/dL (8.5-10.1) Magnesium Level 1.6 mg/dL (1.8-2.4) Thyroid Stimulating Hormone (TSH) 1.794 uIU/mL (0.358-3.74) Laboratory Tests Test 11/29/18 10:00 11/29/18 13:03 11/30/18 05:55 11/30/18 07:11 Influenza Type A Antigen Negative (NEGATIVE) Influenza Type B Antigen Positive (NEGATIVE) Lactic Acid Level 2.4 mmol/L (0.4-2.0) Urine Collection Type Unknown Urine Color Kayla Urine Clarity Clear Urine pH 6.0 Urine Specific [place] 1.025 Urine Protein Negative mg/dL (NEG-TRACE) Urine Glucose (UA) Negative mg/dL (NEG) Urine Ketones (Stick) Trace mg/dL (NEG) Urine Blood Negative (NEG) Urine Nitrite Negative (NEG) Urine Bilirubin Small (NEG) Urine Urobilinogen Dipstick 1.0 mg/dL (0.2 mg/dL) Urine Leukocyte Esterase Negative (NEG) Urine RBC Occ /HPF (0-2) Urine WBC 1-4 /HPF (0-4) Urine Squamous Epithelial Cells Few /LPF Urine Bacteria Few /HPF (0-FEW) Urine Hyaline Casts Occasional /HPF Urine Mucus Mod /LPF White Blood Count 3.7 x10^3/uL (4.0-11.0) Red Blood Count 3.30 x10^6/uL (4.30-5.70) Hemoglobin 10.4 g/dL (13.0-17.5) Hematocrit 31.4 % (39.0-53.0) Mean Corpuscular Volume 95 fL (79-100) Mean Corpuscular Hemoglobin 32 pg (25-35) Mean Corpuscular Hemoglobin Concent 33 g/dL (31-37) Red Cell Distribution Width 17.2 % (11.5-14.5) Platelet Count 131 x10^3/uL (140-400) Neutrophils (%) (Auto) 68 % (31-73) Lymphocytes (%) (Auto) 18 % (24-48) Monocytes (%) (Auto) 7 % (0-9) Eosinophils (%) (Auto) 6 % (0-3) Basophils (%) (Auto) 1 % (0-3) Neutrophils # (Auto) 2.6 x10^3uL (1.8-7.7) Lymphocytes # (Auto) 0.7 x10^3/uL (1.0-4.8) Monocytes # (Auto) 0.3 x10^3/uL (0.0-1.1) Eosinophils # (Auto) 0.2 x10^3/uL (0.0-0.7) Basophils # (Auto) 0.0 x10^3/uL (0.0-0.2) Sodium Level 141 mmol/L (136-145) Potassium Level 4.0 mmol/L (3.5-5.1) Chloride Level 108 mmol/L (98-107) Carbon Dioxide Level 23 mmol/L (21-32) Anion Gap 10 (6-14) Blood Urea Nitrogen 17 mg/dL (8-26) Creatinine 1.6 mg/dL (0.7-1.3) Estimated GFR (Cockcroft-Gault) 42.3 Glucose Level 94 mg/dL (70-99) Calcium Level 8.0 mg/dL (8.5-10.1) Magnesium Level 1.6 mg/dL (1.8-2.4) Thyroid Stimulating Hormone (TSH) 1.794 uIU/mL (0.358-3.74) Meds Current Medications Acetaminophen (Tylenol) 325 mg PRN Q6HRS PRN PO MILD PAIN / TEMP; Start at 10:00 Albuterol Sulfate (Ventolin Neb Soln) 2.5 mg PRN Q6HRS PRN NEB SHORTNESS OF BREATH; Start 11/29/18 at 10:15 Albuterol/ Ipratropium (Duoneb) 3 ml RTQID NEB Last administered on 11/30/18 07:36; Start 11/29/18 at 12:00 Aspirin (Ecotrin) 81 mg DAILY PO Last administered on 11/30/18 08:19; Start at 11:00 Budesonide (Pulmicort) 0.5 mg BID NEB Last administered on 11/30/18 07:36; Start 11/29/18 at 11:00 Cetirizine HCl (ZyrTEC) 10 mg DAILY PO Last administered on 11/30/18 08:19; Start 11/29/18 at 11:00 Clopidogrel Bisulfate (Plavix) 75 mg DAILY PO Last administered on 11/30/18 08 :19; Start 11/29/18 at 11:00 Cyanocobalamin (Vitamin B-12) 100 mcg DAILY PO Last administered on 11/30/18 08:19; Start 11/29/18 at 11:00 Digoxin (Lanoxin) 125 mcg DAILY PO Last administered on 11/30/18 08:26; Start 11/29/18 at 11:00 Diltiazem HCl (Cardizem 24hr Cd) 120 mg DAILY PO Last administered on at 13:09; Start 11/29/18 at 11:00; Stop 11/30/18 at 09:05; Status DC Diltiazem HCl (Cardizem 24hr Cd) 120 mg DAILY PO ; Start 12/01/18 at 09:00 Folic Acid (Folic Acid) 1 mg DAILY PO Last administered on 11/30/18at 08:19; Start 11/29/18 at 11:00 Heparin Sodium (Porcine) (Heparin Sodium) 5,000 unit Q12HR SQ Last administered on 11/29/18 21:30; Start 11/29/18 at 11:00 Lactobacillus Rhamnosus (Culturelle) 1 cap BID PO Last administered on 08:18; Start 11/29/18 at 21:00 Levofloxacin/ Dextrose 50 ml @ 50 mls/hr Q24H IV Last administered on 18:06; Start 11/29/18 at 16:00 Levothyroxine Sodium (Synthroid) 100 mcg DAILY06 PO Last administered on 05:48; Start 11/29/18 at 11:00 Magnesium Hydroxide (Milk Of Magnesia) 400 mg PRN Q2HR PRN PO CONSTIPATION; Start 11/29/18 at 10:00 Magnesium Oxide (Magnesium Oxide) 400 mg TID PO Last administered on 11/30/18 08:19; Start 11/29/18 at 14:00 Montelukast Sodium (Singulair) 10 mg QHS PO Last administered on 11/29/18 21: 23; Start 11/29/18 at 21:00 Nitroglycerin (Nitrostat) 0.4 mg PRN Q5MIN PRN SL CHEST PAIN; Start 11/29/18 at 10:00 Oseltamivir Phosphate (Tamiflu) 30 mg BID PO Last administered on 11/30/18 08: 19; Start 11/29/18 at 14:00; Stop 12/04/18 at 13:59 Pantoprazole Sodium (Protonix) 40 mg DAILYAC PO Last administered on 11/30/18 08:16; Start 11/29/18 at 11:00 Potassium Chloride/Sodium Chloride 1,000 ml @ 75 mls/hr [id number] IV Last administered on 11/29/18 21:24; Start 11/29/18 at 11:00 Simvastatin (Zocor) 20 mg HS PO Last administered on 3/19/19at 21:23; Start at 21:00 Tamsulosin HCl (Flomax) 0.4 mg DAILY PO Last administered on 11/30/18at 08:18; Start 11/29/18 at 11:00 Assessment Assessment 1. Pneumonia. 2. Acute atrial fibrillation. 3. Exacerbation of chronic obstructive pulmonary disease. 4. Acute hypotension. 5. Acute renal failure with chronic kidney disease. 6. Severe protein calorie malnutrition. Albumin is 2.4. 7. Morbid obesity. 8. Coronary artery disease, status post PTCA and a stent placement in right coronary artery, also has a history of myocardial infarction. 9. Esophagitis. 10. Compression fractures of thoracic spine in 2013. 11. History of gastroesophageal reflux disease with esophagitis. 12. History of erosive gastritis. 13. History of systolic heart failure. 14. Gout. 15. Allergies. 16. Morbid obesity. 17. Osteoarthritis. 18. History of avascular necrosis of hip. The patient's acute renal failure is due to vasomotor nephropathy. PLAN: Even though the patient's BNP is elevated, clinically, he appears to be dehydrated. Continue IV fluids, monitor for drop in hemoglobin which is likely dilutional. I will consult Dr. Mendez for pulmonary evaluation and management and Dr. Traore for cardiology evaluation and management because of the high BNP and history of coronary artery disease. High BNP may be due to his acute renal failure also. Continue IV fluids. Continue IV Levaquin and breathing treatments and other medications, monitor for low blood pressure. For details, please review the orders. Long-term as well as short-term prognosis of this patient is poor. TSH is stable. I will order a hemoglobin A1c in the morning, and I will also order TSH in the morning to evaluate his weight loss. For details, please refer to the orders. Sepsis- lactic acid level is 2.4. Discussed with cardiology staff. Continue IV fluids. Consult Dr. Lauro Gonsales for infectious disease evaluation and management. Pneumonia- may be viral. Continue Levaquin. Influenza B- continue Tamiflu. Diastolic congestive heart failure acute on chronic- follow-up echocardiogram. Hypomagnesemia- replace. Clinically much better than yesterday. Plan Plan For more details regarding further plans, please refer to the orders. Nutrition Consultation Dietary Evaluation: Recommendations by RD: Increase Calorie Intake, Protein supplementation Comments: Recommend Ensure-[place] TID Expected Outcomes/Goals: P.O. intake to meet >75% estimated needs Interpretation of weight loss: >1-2% in 1 week Malnutrition Findings: Food and Nutrition Intake (Sev: <50% est energy req 5days Weight Status: Obese PATTY FALK MD Nov 30, 2018 09:23
[2018-11-30] MEDS ORDERED: MAGNESIUM SULFATE 2GM 50 ML IV ONE (09:30)
--- NOTE | 2018-11-30 09:53 | PDOC ---
Infectious Disease Note Vital Sign Vital Signs Vital Signs Date Time Temp Pulse Resp B/P (MAP) Pulse Ox O2 Delivery O2 Flow Rate FiO2 11/30/18 08:26 96 108/46 11/30/18 07:37 97 Room Air 11/30/18 07:00 97.9 22 97.9 Labs Lab Laboratory Tests Test 11/29/18 10:00 11/29/18 13:03 11/30/18 05:55 11/30/18 07:11 Influenza Type A Antigen Negative (NEGATIVE) Influenza Type B Antigen Positive (NEGATIVE) Lactic Acid Level 2.4 mmol/L (0.4-2.0) Urine Collection Type Unknown Urine Color Kayla Urine Clarity Clear Urine pH 6.0 Urine Specific [place] 1.025 Urine Protein Negative mg/dL (NEG-TRACE) Urine Glucose (UA) Negative mg/dL (NEG) Urine Ketones (Stick) Trace mg/dL (NEG) Urine Blood Negative (NEG) Urine Nitrite Negative (NEG) Urine Bilirubin Small (NEG) Urine Urobilinogen Dipstick 1.0 mg/dL (0.2 mg/dL) Urine Leukocyte Esterase Negative (NEG) Urine RBC Occ /HPF (0-2) Urine WBC 1-4 /HPF (0-4) Urine Squamous Epithelial Cells Few /LPF Urine Bacteria Few /HPF (0-FEW) Urine Hyaline Casts Occasional /HPF Urine Mucus Mod /LPF White Blood Count 3.7 x10^3/uL (4.0-11.0) Red Blood Count 3.30 x10^6/uL (4.30-5.70) Hemoglobin 10.4 g/dL (13.0-17.5) Hematocrit 31.4 % (39.0-53.0) Mean Corpuscular Volume 95 fL (79-100) Mean Corpuscular Hemoglobin 32 pg (25-35) Mean Corpuscular Hemoglobin Concent 33 g/dL (31-37) Red Cell Distribution Width 17.2 % (11.5-14.5) Platelet Count 131 x10^3/uL (140-400) Neutrophils (%) (Auto) 68 % (31-73) Lymphocytes (%) (Auto) 18 % (24-48) Monocytes (%) (Auto) 7 % (0-9) Eosinophils (%) (Auto) 6 % (0-3) Basophils (%) (Auto) 1 % (0-3) Neutrophils # (Auto) 2.6 x10^3uL (1.8-7.7) Lymphocytes # (Auto) 0.7 x10^3/uL (1.0-4.8) Monocytes # (Auto) 0.3 x10^3/uL (0.0-1.1) Eosinophils # (Auto) 0.2 x10^3/uL (0.0-0.7) Basophils # (Auto) 0.0 x10^3/uL (0.0-0.2) Sodium Level 141 mmol/L (136-145) Potassium Level 4.0 mmol/L (3.5-5.1) Chloride Level 108 mmol/L (98-107) Carbon Dioxide Level 23 mmol/L (21-32) Anion Gap 10 (6-14) Blood Urea Nitrogen 17 mg/dL (8-26) Creatinine 1.6 mg/dL (0.7-1.3) Estimated GFR (Cockcroft-Gault) 42.3 Glucose Level 94 mg/dL (70-99) Calcium Level 8.0 mg/dL (8.5-10.1) Magnesium Level 1.6 mg/dL (1.8-2.4) Thyroid Stimulating Hormone (TSH) 1.794 uIU/mL (0.358-3.74) Objective Assessment Influenza B Weakness Lactic acidosis Renal insufficiency Hypotension A fib Plan Plan of Care continue tamiflu change levaquin to rocephine GOLDEN ARELLANO MD Nov 30, 2018 09:53
[2018-11-30] MEDS: HEPARIN for SUB-Q USE 5,000 UNIT/ML VIAL. SQ SCH ×2 (10:01→21:15)
[2018-11-30 11:00] VITALS: BP 131/78
--- NOTE | 2018-11-30 11:34 | CARD ---
MR#: [id number] Date of Study: 11/29/2018 Ordering Physician: LIBRA NDIAYE, Referring Physician: PATTY FALK, Tech: Diane Aguirre APPROVED REPORT EXAM: Two-dimensional and M-mode echocardiogram with Doppler and color Doppler. Other Information Quality : AverageHR: 83bpm INDICATION Dyspnea Surgery/Intervention Pacemaker: Date: 2008 2D DIMENSIONS RVDd3.6 (2.9-3.5cm)Left Atrium(2D)4.2 (1.6-4.0cm) IVSd1.1 (0.7-1.1cm)Aortic Root(2D)3.7 (2.0-3.7cm) LVDd5.2 (3.9-5.9cm)LVOT Diameter2.5 (1.8-2.4cm) PWd0.8 (0.7-1.1cm)LVDs4.5 (2.5-4.0cm) FS (%) 13.6 %SV36.6 ml LVEF(%)28.8 (>50%) Aortic Valve AoV Peak Mathew.125.5cm/sAoV VTI20.2cm AO Peak GR.6.3mmHgLVOT VTI 14.80cm AO Mean GR.4mmHg TDI Lateral E' P. V9.59cm/sMedial E' P. V8.69cm/s Tricuspid Valve TR P. [id number]/sRAP [id number] TR Peak Gr.[id number] Pulmonary Vein S1 Gcdbfhlu57.9cm/sS2 Cckcfhlv26.72cm/s D2 Wxfhzzkx91.7cm/s LEFT VENTRICLE The left ventricle is normal size. There is borderline concentric left ventricular hypertrophy. The l eft ventricular systolic function is normal and the ejection fraction is within normal range. The Eje ction Fraction is >55%. There is normal LV segmental wall motion. Tissue Doppler imaging reveals mode rate left ventricular diastolic dysfunction. RIGHT VENTRICLE The right ventricle is normal size. There is normal right ventricular wall thickness. The right ventr icular systolic function is normal. There is a pacemaker lead in the right ventricle. ATRIA The left atrium size is normal. The right atrium size is normal. There is a pacemaker lead seen in th e right atrium. The interatrial septum is intact with no evidence for an atrial septal defect or wing nt foramen ovale as noted on 2-D or Doppler imaging. AORTIC VALVE The aortic valve is thickened but opens well. Doppler and Color Flow revealed no significant aortic r egurgitation. There is no significant aortic valvular stenosis. MITRAL VALVE The mitral valve is normal in structure and function. There is no evidence of mitral valve prolapse. There is no mitral valve stenosis. Doppler and Color-flow revealed trace mitral regurgitation. TRICUSPID VALVE The tricuspid valve is normal in structure and function. Doppler and Color Flow revealed trace tricus pid regurgitation. There is no tricuspid valve stenosis. PULMONIC VALVE The pulmonic valve is not well visualized. Doppler and Color Flow revealed no pulmonic valvular regur gitation. There is no pulmonic valvular stenosis. GREAT VESSELS The aortic root is normal in size. The IVC is normal in size and collapses >50% with inspiration. PERICARDIAL EFFUSION There is no evidence of significant pericardial effusion. Critical Notification Critical Value: No <Conclusion> The left ventricular systolic function is normal and the ejection fraction is within normal range. Th e Ejection Fraction is >55%. There is normal LV segmental wall motion. There is a pacemaker lead in the right ventricle. Signed by : Gopi Villalta, Electronically Approved : 11/30/2018 11:33:56
--- NOTE | 2018-11-30 11:42 | PDOC ---
PULMONARY PROGRESS NOTES Subjective less cough Vitals Vital Signs Date Time Temp Pulse Resp B/P (MAP) Pulse Ox O2 Delivery O2 Flow Rate FiO2 11/30/18 11:24 Room Air 11/30/18 08:26 96 108/46 11/30/18 07:37 97 11/30/18 07:00 97.9 22 97.9 General: Alert, No acute distress Lungs: Crackles (faint bases) Cardiovascular: S1 Abdomen: Soft Neuro Exam: Alert Extremities: No Edema Skin: Warm Labs Laboratory Tests Test 11/28/18 14:42 11/29/18 05:50 11/29/18 10:00 11/29/18 13:03 White Blood Count 7.2 x10^3/uL (4.0-11.0) 4.9 x10^3/uL (4.0-11.0) Red Blood Count 3.93 x10^6/uL (4.30-5.70) 3.39 x10^6/uL (4.30-5.70) Hemoglobin 12.4 g/dL (13.0-17.5) 10.4 g/dL (13.0-17.5) Hematocrit 37.7 % (39.0-53.0) 32.6 % (39.0-53.0) Mean Corpuscular Volume 96 fL (79-100) 96 fL (79-100) Mean Corpuscular Hemoglobin 32 pg (25-35) 31 pg (25-35) Mean Corpuscular Hemoglobin Concent 33 g/dL (31-37) 32 g/dL (31-37) Red Cell Distribution Width 16.9 % (11.5-14.5) 17.5 % (11.5-14.5) Platelet Count 173 x10^3/uL (140-400) 133 x10^3/uL (140-400) Neutrophils (%) (Auto) 75 % (31-73) 73 % (31-73) Lymphocytes (%) (Auto) 14 % (24-48) 16 % (24-48) Monocytes (%) (Auto) 9 % (0-9) 8 % (0-9) Eosinophils (%) (Auto) 2 % (0-3) 3 % (0-3) Basophils (%) (Auto) 1 % (0-3) 1 % (0-3) Neutrophils # (Auto) 5.4 x10^3uL (1.8-7.7) 3.5 x10^3uL (1.8-7.7) Lymphocytes # (Auto) 1.0 x10^3/uL (1.0-4.8) 0.8 x10^3/uL (1.0-4.8) Monocytes # (Auto) 0.6 x10^3/uL (0.0-1.1) 0.4 x10^3/uL (0.0-1.1) Eosinophils # (Auto) 0.2 x10^3/uL (0.0-0.7) 0.1 x10^3/uL (0.0-0.7) Basophils # (Auto) 0.1 x10^3/uL (0.0-0.2) 0.0 x10^3/uL (0.0-0.2) Sodium Level 139 mmol/L (136-145) 141 mmol/L (136-145) Potassium Level 4.8 mmol/L (3.5-5.1) 3.9 mmol/L (3.5-5.1) Chloride Level 104 mmol/L (98-107) 106 mmol/L (98-107) Carbon Dioxide Level 26 mmol/L (21-32) 25 mmol/L (21-32) Anion Gap 9 (6-14) 10 (6-14) Blood Urea Nitrogen 19 mg/dL (8-26) 21 mg/dL (8-26) Creatinine 2.0 mg/dL (0.7-1.3) 1.6 mg/dL (0.7-1.3) Estimated GFR (Cockcroft-Gault) 32.7 42.3 BUN/Creatinine Ratio 10 (6-20) Glucose Level 107 mg/dL (70-99) 82 mg/dL (70-99) Calcium Level 8.7 mg/dL (8.5-10.1) 7.9 mg/dL (8.5-10.1) Total Bilirubin 1.8 mg/dL (0.2-1.0) Aspartate Amino Transf (AST/SGOT) 20 U/L (15-37) Alanine Aminotransferase (ALT/SGPT) 14 U/L (16-63) Alkaline Phosphatase 126 U/L (46-116) BW-Rzv-U-Type Natriuretic Peptide 4674 pg/mL (0-449) Total Protein 6.5 g/dL (6.4-8.2) Albumin 2.4 g/dL (3.4-5.0) Albumin/Globulin Ratio 0.6 (1.0-1.7) Influenza Type A Antigen Negative (NEGATIVE) Influenza Type B Antigen Positive (NEGATIVE) Lactic Acid Level 2.4 mmol/L (0.4-2.0) Test 11/30/18 05:55 11/30/18 07:11 Urine Collection Type Unknown Urine Color Kayla Urine Clarity Clear Urine pH 6.0 Urine Specific [place] 1.025 Urine Protein Negative mg/dL (NEG-TRACE) Urine Glucose (UA) Negative mg/dL (NEG) Urine Ketones (Stick) Trace mg/dL (NEG) Urine Blood Negative (NEG) Urine Nitrite Negative (NEG) Urine Bilirubin Small (NEG) Urine Urobilinogen Dipstick 1.0 mg/dL (0.2 mg/dL) Urine Leukocyte Esterase Negative (NEG) Urine RBC Occ /HPF (0-2) Urine WBC 1-4 /HPF (0-4) Urine Squamous Epithelial Cells Few /LPF Urine Bacteria Few /HPF (0-FEW) Urine Hyaline Casts Occasional /HPF Urine Mucus Mod /LPF White Blood Count 3.7 x10^3/uL (4.0-11.0) Red Blood Count 3.30 x10^6/uL (4.30-5.70) Hemoglobin 10.4 g/dL (13.0-17.5) Hematocrit 31.4 % (39.0-53.0) Mean Corpuscular Volume 95 fL (79-100) Mean Corpuscular Hemoglobin 32 pg (25-35) Mean Corpuscular Hemoglobin Concent 33 g/dL (31-37) Red Cell Distribution Width 17.2 % (11.5-14.5) Platelet Count 131 x10^3/uL (140-400) Neutrophils (%) (Auto) 68 % (31-73) Lymphocytes (%) (Auto) 18 % (24-48) Monocytes (%) (Auto) 7 % (0-9) Eosinophils (%) (Auto) 6 % (0-3) Basophils (%) (Auto) 1 % (0-3) Neutrophils # (Auto) 2.6 x10^3uL (1.8-7.7) Lymphocytes # (Auto) 0.7 x10^3/uL (1.0-4.8) Monocytes # (Auto) 0.3 x10^3/uL (0.0-1.1) Eosinophils # (Auto) 0.2 x10^3/uL (0.0-0.7) Basophils # (Auto) 0.0 x10^3/uL (0.0-0.2) Sodium Level 141 mmol/L (136-145) Potassium Level 4.0 mmol/L (3.5-5.1) Chloride Level 108 mmol/L (98-107) Carbon Dioxide Level 23 mmol/L (21-32) Anion Gap 10 (6-14) Blood Urea Nitrogen 17 mg/dL (8-26) Creatinine 1.6 mg/dL (0.7-1.3) Estimated GFR (Cockcroft-Gault) 42.3 Glucose Level 94 mg/dL (70-99) Calcium Level 8.0 mg/dL (8.5-10.1) Magnesium Level 1.6 mg/dL (1.8-2.4) Thyroid Stimulating Hormone (TSH) 1.794 uIU/mL (0.358-3.74) Laboratory Tests Test 11/29/18 13:03 11/30/18 05:55 11/30/18 07:11 Lactic Acid Level 2.4 mmol/L (0.4-2.0) Urine Collection Type Unknown Urine Color Kayla Urine Clarity Clear Urine pH 6.0 Urine Specific [place] 1.025 Urine Protein Negative mg/dL (NEG-TRACE) Urine Glucose (UA) Negative mg/dL (NEG) Urine Ketones (Stick) Trace mg/dL (NEG) Urine Blood Negative (NEG) Urine Nitrite Negative (NEG) Urine Bilirubin Small (NEG) Urine Urobilinogen Dipstick 1.0 mg/dL (0.2 mg/dL) Urine Leukocyte Esterase Negative (NEG) Urine RBC Occ /HPF (0-2) Urine WBC 1-4 /HPF (0-4) Urine Squamous Epithelial Cells Few /LPF Urine Bacteria Few /HPF (0-FEW) Urine Hyaline Casts Occasional /HPF Urine Mucus Mod /LPF White Blood Count 3.7 x10^3/uL (4.0-11.0) Red Blood Count 3.30 x10^6/uL (4.30-5.70) Hemoglobin 10.4 g/dL (13.0-17.5) Hematocrit 31.4 % (39.0-53.0) Mean Corpuscular Volume 95 fL (79-100) Mean Corpuscular Hemoglobin 32 pg (25-35) Mean Corpuscular Hemoglobin Concent 33 g/dL (31-37) Red Cell Distribution Width 17.2 % (11.5-14.5) Platelet Count 131 x10^3/uL (140-400) Neutrophils (%) (Auto) 68 % (31-73) Lymphocytes (%) (Auto) 18 % (24-48) Monocytes (%) (Auto) 7 % (0-9) Eosinophils (%) (Auto) 6 % (0-3) Basophils (%) (Auto) 1 % (0-3) Neutrophils # (Auto) 2.6 x10^3uL (1.8-7.7) Lymphocytes # (Auto) 0.7 x10^3/uL (1.0-4.8) Monocytes # (Auto) 0.3 x10^3/uL (0.0-1.1) Eosinophils # (Auto) 0.2 x10^3/uL (0.0-0.7) Basophils # (Auto) 0.0 x10^3/uL (0.0-0.2) Sodium Level 141 mmol/L (136-145) Potassium Level 4.0 mmol/L (3.5-5.1) Chloride Level 108 mmol/L (98-107) Carbon Dioxide Level 23 mmol/L (21-32) Anion Gap 10 (6-14) Blood Urea Nitrogen 17 mg/dL (8-26) Creatinine 1.6 mg/dL (0.7-1.3) Estimated GFR (Cockcroft-Gault) 42.3 Glucose Level 94 mg/dL (70-99) Calcium Level 8.0 mg/dL (8.5-10.1) Magnesium Level 1.6 mg/dL (1.8-2.4) Thyroid Stimulating Hormone (TSH) 1.794 uIU/mL (0.358-3.74) Medications Active Scripts Medications Dose Route/Sig Max Daily Dose Days Date Category Zyrtec (Cetirizine Hcl) 10 Mg Tablet 1 Tab PO DAILY 11/29/18 Reported Montelukast Sodium Tablet (Montelukast Sodium) 10 Mg Tablet 10 Mg PO HS 11/29/18 Reported Proair Hfa (Albuterol Sulfate) 8.5 Gm Hfa.aer.ad 1 Puff INH PRN Q4-6HRS PRN 11/29/18 Reported Duoneb 0.5-3(2.5) Mg/3 Ml (Albuterol/Ipratropium) 3 Ml Ampul.neb 3 Ml NEB BID PRN 11/29/18 Reported Duoneb 0.5-3(2.5) Mg/3 Ml (Albuterol/Ipratropium) 3 Ml Ampul.neb 3 Ml NEB QID 11/29/18 Reported Furosemide 40 Mg Tablet 1 Tab PO DAILY 11/29/18 Reported Digoxin 125 Mcg Tablet 125 Mcg PO DAILY 11/29/18 Reported Cardizem Cd (Diltiazem Hcl) 180 Mg Cap.er.24h 120 Mg PO DAILY 11/29/18 Reported Budesonide 0.5 Mg/2 Ml Ampul.neb 1 Vial NEB BID 11/29/18 Reported Aspirin Ec (Aspirin) 81 Mg Tablet.dr 1 Tab PO DAILY 11/29/18 Reported Tamsulosin Hcl 0.4 Mg Cap.er.24h 1 Cap PO DAILY 05/20/18 Reported Clopidogrel (Clopidogrel Bisulfate) 75 Mg Tablet 1 Tab PO DAILY 05/20/18 Reported Mag-Oxide (Magnesium Oxide) 400 Mg Tablet 1 Tab PO TID 09/13/17 Reported Zocor (Simvastatin) 20 Mg Tablet 20 Mg PO HS 08/20/13 Reported Synthroid (Levothyroxine Sodium) 100 Mcg Tablet 100 Mcg PO DAILY06 08/20/13 Reported Protonix (Pantoprazole Sodium) 40 Mg Granpkt.dr 40 Mg PO DAILY08 08/20/13 Reported Nitrostat (Nitroglycerin) 0.4 Mg Tab.subl 0.4 Mg SL PRN Q5MIN 08/20/13 Reported Folic Acid 1 Mg Tablet 1 Mg PO DAILY 08/20/13 Reported Vitamin B-12 (Cyanocobalamin (Vitamin B-12)) 100 Mcg Tablet 100 Mcg PO DAILY 08/20/13 Reported Milk Of Magnesia (Magnesium Hydroxide) 400 Mg/5 Ml Oral.susp 400 Mg PO PRN Q2HR 08/20/13 Reported Acetaminophen 325 Mg Tablet 325 Mg PO PRN Q6HRS 08/20/13 Reported Impression . 1. The patient with dyspnea and cough. Cough has been present for last 2 weeks, nonproductive related to Influenza B. A chest x-ray showing mild patchy opacity right lower lobe. Likely symptoms are related to influenza pneumonia. 2. The patient with chronic exertional dyspnea for the last 6 months. He has history of three vessel coronary artery disease. He was not an optimal surgical candidate and underwent high risk PCI/stents to left main coronary artery, left anterior descending artery, and right coronary artery. Also, Impella assist device. I would recommend follow up echocardiogram. 3. Underlying chronic obstructive pulmonary disease. 4. Obesity, but no history of sleep apnea. Plan . 1. Continue with present Influenza isolation / Tamiflu/ bronchodilators. 2. Continue present antibiotics. 3. CT chest reviewed. Mild stable peripheral fibrotic changes, mild fibrosis, no change since past ct chest. repeat in 1 yr. 4. Follow Cardiology recommendation. 5. echocardiogram reviewed. NL EF, Moderate diastolic dysfunction 6. We will do PFTs as an outpatient. LIBRA NDIAYE MD Nov 30, 2018 11:42
[2018-11-30] MEDS: cefTRIAXone IV Push 1 GM VIAL. IVP SCH (11:54)
[2018-11-30 15:00] VITALS: BP 121/64
--- NOTE | 2018-11-30 15:41 | NUR ---
magnesium was low and bolus given along with oral. aantibiotic changed to rocephin daily
[2018-11-30 19:00] VITALS: BP 129/74
--- NOTE | 2018-11-30 20:04 | CONS ---
DATE OF CONSULTATION: 11/30/2018 REQUESTING PHYSICIAN: Dr. Hayden Proctor. REASON FOR CONSULTATION: Influenza and lactic acid, now positive. HISTORY OF PRESENT ILLNESS: This is a 73-year-old gentleman who was seen in the office at Dr. Proctor's office with not feeling well and significant weakness. The patient was found to be hypotensive. The patient was sent in and he was admitted. The patient subsequently was found to have now influenza B positive, lactic acidosis, abnormal chest x-ray, although CT showed it is chronic changes. The patient also had BNP of 4674, elevated creatinine. The patient has been on levofloxacin. The patient says he is feeling better. He does have cough, some shortness of breath. Denies any fever. Denies any nausea, vomiting, diarrhea, chest pain, abdominal pain, urinary symptoms. PAST MEDICAL HISTORY: Positive for hypertension, hyperlipidemia, atrial fibrillation, congestive heart failure, coronary artery disease, hypothyroidism, chronic back problem, obesity, gout, COPD, avascular necrosis of the hip, pacemaker in place. SOCIAL HISTORY: Negative for smoking, alcohol, illicit drug use. ALLERGIES: No known drug allergies. CURRENT MEDICATIONS: Reviewed. The patient is on levofloxacin and Tamiflu. REVIEW OF SYSTEMS: As per HPI, all other systems reviewed are negative. PHYSICAL EXAMINATION: GENERAL: Alert, oriented gentleman, not in any distress. VITAL SIGNS: Stable, afebrile. HEENT: NAD. NECK: Supple, no JVP, no lymphadenopathy. LUNGS: Clear. HEART: S1, S2 regular. ABDOMEN: Benign. EXTREMITIES: No edema or cyanosis. SKIN: Unremarkable. NEUROLOGIC: The patient is neurologically alert, awake and appropriate. No focal neurologic deficit. LABORATORY DATA: White count is 3.7, hemoglobin 10.4, platelets are 131,000. BUN and creatinine are 17 and 1.6. Lactic acid 2.4. BNP 4674. Urinalysis unremarkable for infection. Influenza screen positive where influenza B is positive. Chest CT showed bilateral stable opacity, subpleural opacity is considered to be fibrosis. IMPRESSION: 1. Influenza B positive. 2. Lactic acidosis. 3. Congestive heart failure. 4. Hypotension. 5. Coronary artery disease. 6. Renal insufficiency. RECOMMENDATIONS: Recommend continue Tamiflu. Change levofloxacin to Rocephin. Supportive care. Cardiology workup is pending. We will continue to follow. Thank you very much, Dr. Proctor, for giving me the opportunity to participate in this patient's care. GOLDEN ARELLANO MD DR: CLINT/allison JOB#: [id number] / [id number]
[2018-11-30] MEDS: MONTELUKAST SODIUM 10 MG TABLET. PO SCH (21:11)
[2018-11-30] MEDS: SIMVASTATIN 20 MG TABLET PO SCH (21:11)
[2018-11-30 23:05] VITALS: BP 142/76
[2018-12-01 03:17] VITALS: BP 129/88
[2018-12-01] MEDS: LEVOTHYROXINE 100 MCG TABLET PO SCH (05:50)
[2018-12-01 06:43] LABS: BASO % 0 % (0-3); EOS # 0.2 x10^3/uL (0.0-0.7); EOS % 6 % (0-3); HEMATOCRIT 31.5 % (39.0-53.0); HEMOGLOBIN 10.1 g/dL (13.0-17.5); LYMPH # 0.7 x10^3/uL (1.0-4.8); LYMPH % 18 % (24-48); MEAN CORPUSCULAR HEMOGLOBIN 31 pg (25-35); MEAN CORPUSCULAR HGB CONC 32 g/dL (31-37); MEAN CORPUSCULAR VOLUME 96 fL (79-100); MONO # 0.3 x10^3/uL (0.0-1.1); MONO % 7 % (0-9); NEUT # 2.6 x10^3uL (1.8-7.7); NEUT % 69 % (31-73); PLATELET COUNT 128 x10^3/uL (140-400); RED BLOOD COUNT 3.27 x10^6/uL (4.30-5.70); RED CELL DISTRIBUTION WIDTH 17.6 % (11.5-14.5); WHITE BLOOD COUNT 3.8 x10^3/uL (4.0-11.0)
[2018-12-01 07:00] VITALS: BP 130/69
[2018-12-01 07:04] LABS: CALCIUM 8.3 mg/dL (8.5-10.1); CREATININE 1.3 mg/dL (0.7-1.3); GFR 53.8; POTASSIUM 4.4 mmol/L (3.5-5.1)
[2018-12-01] MEDS: BUDESONIDE 0.5 MG/2 ML NEBU. NEB SCH ×2 (07:55→19:22)
[2018-12-01] MEDS: IPRATRPIUM/ALBUTEROL 0.5/2.5MG 3 ML NEBU. NEB SCH ×4 (07:58→19:22)
[2018-12-01] MEDS: PANTOPRAZOLE 40 MG TABLET.DR. PO SCH (08:14)
[2018-12-01] MEDS: MAGNESIUM OXIDE 400 MG TABLET PO SCH ×3 (08:14→20:41)
[2018-12-01] MEDS: FOLIC ACID 1 MG TABLET. PO SCH (08:14)
[2018-12-01] MEDS: TAMSULOSIN 0.4 MG CAP.ER.24H. PO SCH (08:15)
[2018-12-01] MEDS: ASPIRIN ENTERIC COATED 81 MG TABLET.DR. PO SCH (08:15)
[2018-12-01] MEDS: DIGOXIN 125 MCG TABLET. PO SCH (08:15)
[2018-12-01] MEDS: CLOPIDOGREL BISULFATE 75 MG TABLET PO SCH (08:15)
[2018-12-01] MEDS: LACTOBACILLUS RHAMNOSUS GG 1 CAPSULE. PO SCH ×2 (08:15→20:41)
[2018-12-01] MEDS: OSELTAMIVIR 30 MG CAPSULE PO SCH ×2 (08:16→20:41)
[2018-12-01] MEDS: CETIRIZINE HCL 10 MG TABLET. PO SCH (08:16)
[2018-12-01] MEDS: CYANOCOBALAMIN (VITAMIN B-12) 100 MCG TABLET PO SCH (08:16)
[2018-12-01] MEDS: HEPARIN for SUB-Q USE 5,000 UNIT/ML VIAL. SQ SCH ×2 (08:22→20:46)
--- NOTE | 2018-12-01 09:04 | PDOC ---
Infectious Disease Note Subjective Subjective pt is feeling better ROS ROS no n/v/d/sob Vital Sign Vital Signs Vital Signs Date Time Temp Pulse Resp B/P (MAP) Pulse Ox O2 Delivery O2 Flow Rate FiO2 12/01/18 08:34 89 130/69 12/01/18 07:56 97 Room Air 12/01/18 07:00 98.0 17 98.0 Physical Exam PHYSICAL EXAM GENERAL: Alert, oriented gentleman, not in any distress. VITAL SIGNS: Stable, afebrile. HEENT: NAD. NECK: Supple, no JVP, no lymphadenopathy. LUNGS: Clear. HEART: S1, S2 regular. ABDOMEN: Benign. EXTREMITIES: No edema or cyanosis. SKIN: Unremarkable. NEUROLOGIC: The patient is neurologically alert, awake and appropriate. No focal neurologic deficit. Labs Lab Laboratory Tests Test 12/01/18 05:25 White Blood Count 3.8 x10^3/uL (4.0-11.0) Red Blood Count 3.27 x10^6/uL (4.30-5.70) Hemoglobin 10.1 g/dL (13.0-17.5) Hematocrit 31.5 % (39.0-53.0) Mean Corpuscular Volume 96 fL (79-100) Mean Corpuscular Hemoglobin 31 pg (25-35) Mean Corpuscular Hemoglobin Concent 32 g/dL (31-37) Red Cell Distribution Width 17.6 % (11.5-14.5) Platelet Count 128 x10^3/uL (140-400) Neutrophils (%) (Auto) 69 % (31-73) Lymphocytes (%) (Auto) 18 % (24-48) Monocytes (%) (Auto) 7 % (0-9) Eosinophils (%) (Auto) 6 % (0-3) Basophils (%) (Auto) 0 % (0-3) Neutrophils # (Auto) 2.6 x10^3uL (1.8-7.7) Lymphocytes # (Auto) 0.7 x10^3/uL (1.0-4.8) Monocytes # (Auto) 0.3 x10^3/uL (0.0-1.1) Eosinophils # (Auto) 0.2 x10^3/uL (0.0-0.7) Basophils # (Auto) 0.0 x10^3/uL (0.0-0.2) Sodium Level 141 mmol/L (136-145) Potassium Level 4.4 mmol/L (3.5-5.1) Chloride Level 108 mmol/L (98-107) Carbon Dioxide Level 23 mmol/L (21-32) Anion Gap 10 (6-14) Blood Urea Nitrogen 15 mg/dL (8-26) Creatinine 1.3 mg/dL (0.7-1.3) Estimated GFR (Cockcroft-Gault) 53.8 Glucose Level 87 mg/dL (70-99) Calcium Level 8.3 mg/dL (8.5-10.1) Objective Assessment Influenza B Weakness Lactic acidosis Renal insufficiency Hypotension A fib Plan Plan of Care continue tamiflu rocephine,, soon to change to po vantin for d/c GOLDEN ARELLANO MD Dec 01, 2018 09:04
[2018-12-01] MEDS: cefTRIAXone IV Push 1 GM VIAL. IVP SCH (10:46)
[2018-12-01 11:00] VITALS: BP 122/63
--- NOTE | 2018-12-01 11:01 | PDOC ---
IM PROGRESS NOTES- Subjective Subjective Feeling better. Continues to have some cough and congestion. Denies any abdominal pain or nausea. Objective Vitals Vital Signs Date Time Temp Pulse Resp B/P (MAP) Pulse Ox O2 Delivery O2 Flow Rate FiO2 12/01/18 08:34 89 130/69 12/01/18 08:00 Room Air 12/01/18 07:56 97 12/01/18 07:00 98.0 17 98.0 Input & Output Intake and Output 12/01/18 07:00 Intake Total 2690 ml Output Total 250 ml Balance 2440 ml Intake Oral 740 ml IV Total 1950 ml Output Urine Total 250 ml # Voids 3 Physical Exam Physical Exam General appearance - alert,ill appearing, and in no distress and oriented to person, place, and time Mental Status - alert, oriented to person, place, and time, affect appropriate to mood Head - normal Chest -few bilateral wheezes with decreased breath sounds at bases. Heart - S1 and S2 irregular Abdomen - soft, nontender, nondistended, no masses or organomegaly Neurological - alert and oriented Musculoskeletal - no muscular tenderness noted Extremities - no pedal edema Skin - warm and dry Labs Laboratory Tests Test 11/29/18 13:03 11/30/18 05:55 11/30/18 07:11 12/01/18 05:25 Lactic Acid Level 2.4 mmol/L (0.4-2.0) Urine Collection Type Unknown Urine Color Kayla Urine Clarity Clear Urine pH 6.0 Urine Specific [place] 1.025 Urine Protein Negative mg/dL (NEG-TRACE) Urine Glucose (UA) Negative mg/dL (NEG) Urine Ketones (Stick) Trace mg/dL (NEG) Urine Blood Negative (NEG) Urine Nitrite Negative (NEG) Urine Bilirubin Small (NEG) Urine Urobilinogen Dipstick 1.0 mg/dL (0.2 mg/dL) Urine Leukocyte Esterase Negative (NEG) Urine RBC Occ /HPF (0-2) Urine WBC 1-4 /HPF (0-4) Urine Squamous Epithelial Cells Few /LPF Urine Bacteria Few /HPF (0-FEW) Urine Hyaline Casts Occasional /HPF Urine Mucus Mod /LPF White Blood Count 3.7 x10^3/uL (4.0-11.0) 3.8 x10^3/uL (4.0-11.0) Red Blood Count 3.30 x10^6/uL (4.30-5.70) 3.27 x10^6/uL (4.30-5.70) Hemoglobin 10.4 g/dL (13.0-17.5) 10.1 g/dL (13.0-17.5) Hematocrit 31.4 % (39.0-53.0) 31.5 % (39.0-53.0) Mean Corpuscular Volume 95 fL (79-100) 96 fL (79-100) Mean Corpuscular Hemoglobin 32 pg (25-35) 31 pg (25-35) Mean Corpuscular Hemoglobin Concent 33 g/dL (31-37) 32 g/dL (31-37) Red Cell Distribution Width 17.2 % (11.5-14.5) 17.6 % (11.5-14.5) Platelet Count 131 x10^3/uL (140-400) 128 x10^3/uL (140-400) Neutrophils (%) (Auto) 68 % (31-73) 69 % (31-73) Lymphocytes (%) (Auto) 18 % (24-48) 18 % (24-48) Monocytes (%) (Auto) 7 % (0-9) 7 % (0-9) Eosinophils (%) (Auto) 6 % (0-3) 6 % (0-3) Basophils (%) (Auto) 1 % (0-3) 0 % (0-3) Neutrophils # (Auto) 2.6 x10^3uL (1.8-7.7) 2.6 x10^3uL (1.8-7.7) Lymphocytes # (Auto) 0.7 x10^3/uL (1.0-4.8) 0.7 x10^3/uL (1.0-4.8) Monocytes # (Auto) 0.3 x10^3/uL (0.0-1.1) 0.3 x10^3/uL (0.0-1.1) Eosinophils # (Auto) 0.2 x10^3/uL (0.0-0.7) 0.2 x10^3/uL (0.0-0.7) Basophils # (Auto) 0.0 x10^3/uL (0.0-0.2) 0.0 x10^3/uL (0.0-0.2) Sodium Level 141 mmol/L (136-145) 141 mmol/L (136-145) Potassium Level 4.0 mmol/L (3.5-5.1) 4.4 mmol/L (3.5-5.1) Chloride Level 108 mmol/L (98-107) 108 mmol/L (98-107) Carbon Dioxide Level 23 mmol/L (21-32) 23 mmol/L (21-32) Anion Gap 10 (6-14) 10 (6-14) Blood Urea Nitrogen 17 mg/dL (8-26) 15 mg/dL (8-26) Creatinine 1.6 mg/dL (0.7-1.3) 1.3 mg/dL (0.7-1.3) Estimated GFR (Cockcroft-Gault) 42.3 53.8 Glucose Level 94 mg/dL (70-99) 87 mg/dL (70-99) Hemoglobin A1c 5.0 % (4.8-5.6) Calcium Level 8.0 mg/dL (8.5-10.1) 8.3 mg/dL (8.5-10.1) Magnesium Level 1.6 mg/dL (1.8-2.4) Thyroid Stimulating Hormone (TSH) 1.794 uIU/mL (0.358-3.74) Laboratory Tests Test 12/01/18 05:25 White Blood Count 3.8 x10^3/uL (4.0-11.0) Red Blood Count 3.27 x10^6/uL (4.30-5.70) Hemoglobin 10.1 g/dL (13.0-17.5) Hematocrit 31.5 % (39.0-53.0) Mean Corpuscular Volume 96 fL (79-100) Mean Corpuscular Hemoglobin 31 pg (25-35) Mean Corpuscular Hemoglobin Concent 32 g/dL (31-37) Red Cell Distribution Width 17.6 % (11.5-14.5) Platelet Count 128 x10^3/uL (140-400) Neutrophils (%) (Auto) 69 % (31-73) Lymphocytes (%) (Auto) 18 % (24-48) Monocytes (%) (Auto) 7 % (0-9) Eosinophils (%) (Auto) 6 % (0-3) Basophils (%) (Auto) 0 % (0-3) Neutrophils # (Auto) 2.6 x10^3uL (1.8-7.7) Lymphocytes # (Auto) 0.7 x10^3/uL (1.0-4.8) Monocytes # (Auto) 0.3 x10^3/uL (0.0-1.1) Eosinophils # (Auto) 0.2 x10^3/uL (0.0-0.7) Basophils # (Auto) 0.0 x10^3/uL (0.0-0.2) Sodium Level 141 mmol/L (136-145) Potassium Level 4.4 mmol/L (3.5-5.1) Chloride Level 108 mmol/L (98-107) Carbon Dioxide Level 23 mmol/L (21-32) Anion Gap 10 (6-14) Blood Urea Nitrogen 15 mg/dL (8-26) Creatinine 1.3 mg/dL (0.7-1.3) Estimated GFR (Cockcroft-Gault) 53.8 Glucose Level 87 mg/dL (70-99) Calcium Level 8.3 mg/dL (8.5-10.1) Meds Current Medications Diltiazem HCl (Cardizem 24hr ) 120 mg DAILY PO Last administered on at 08:34; Start 12/01/18 at 09:00 Assessment Assessment 1. Pneumonia. 2. Acute atrial fibrillation. 3. Exacerbation of chronic obstructive pulmonary disease. 4. Acute hypotension. 5. Acute renal failure with chronic kidney disease. 6. Severe protein calorie malnutrition. Albumin is 2.4. 7. Morbid obesity. 8. Coronary artery disease, status post PTCA and a stent placement in right coronary artery, also has a history of myocardial infarction. 9. Esophagitis. 10. Compression fractures of thoracic spine in 2013. 11. History of gastroesophageal reflux disease with esophagitis. 12. History of erosive gastritis. 13. History of systolic heart failure. 14. Gout. 15. Allergies. 16. Morbid obesity. 17. Osteoarthritis. 18. History of avascular necrosis of hip. The patient's acute renal failure is due to vasomotor nephropathy. PLAN: Even though the patient's BNP is elevated, clinically, he appears to be dehydrated. Continue IV fluids, monitor for drop in hemoglobin which is likely dilutional. I will consult Dr. Mendez for pulmonary evaluation and management and Dr. Traore for cardiology evaluation and management because of the high BNP and history of coronary artery disease. High BNP may be due to his acute renal failure also. Continue IV fluids. Continue IV Levaquin and breathing treatments and other medications, monitor for low blood pressure. For details, please review the orders. Long-term as well as short-term prognosis of this patient is poor. TSH is stable. I will order a hemoglobin A1c in the morning, and I will also order TSH in the morning to evaluate his weight loss. For details, please refer to the orders. Sepsis- lactic acid level is 2.4. Discussed with cardiology staff. Continue IV fluids. Consult Dr. Lauro Gonsales for infectious disease evaluation and management. Pneumonia- may be viral. Continue Levaquin. Influenza B- continue Tamiflu. Diastolic congestive heart failure acute on chronic- follow-up echocardiogram. Hypomagnesemia- replace. Still coughing a lot. Dr. Gonsales has put him on IV Rocephin. If stable will discharge him tomorrow. Continue to encourage oral intake. Plan Plan For more details regarding further plans, please refer to the orders. Nutrition Consultation Dietary Evaluation: Recommendations by RD: Increase Calorie Intake, Protein supplementation Comments: Recommend Ensure-[place] TID Expected Outcomes/Goals: P.O. intake to meet >75% estimated needs Interpretation of weight loss: >1-2% in 1 week Malnutrition Findings: Food and Nutrition Intake (Sev: <50% est energy req 5days Weight Status: Obese PATTY FALK MD Dec 01, 2018 11:01
--- NOTE | 2018-12-01 12:36 | PDOC ---
PULMONARY PROGRESS NOTES Subjective mild cough/ no soa Vitals Vital Signs Date Time Temp Pulse Resp B/P (MAP) Pulse Ox O2 Delivery O2 Flow Rate FiO2 12/01/18 11:39 97 Room Air 12/01/18 11:00 97.5 78 17 122/63 (82) 97.5 General: Alert, No acute distress Lungs: Crackles (faint bases) Cardiovascular: S1 Abdomen: Soft Neuro Exam: Alert Extremities: No Edema Skin: Warm Labs Laboratory Tests Test 11/29/18 13:03 11/30/18 05:55 11/30/18 07:11 12/01/18 05:25 Lactic Acid Level 2.4 mmol/L (0.4-2.0) Urine Collection Type Unknown Urine Color Kayla Urine Clarity Clear Urine pH 6.0 Urine Specific [place] 1.025 Urine Protein Negative mg/dL (NEG-TRACE) Urine Glucose (UA) Negative mg/dL (NEG) Urine Ketones (Stick) Trace mg/dL (NEG) Urine Blood Negative (NEG) Urine Nitrite Negative (NEG) Urine Bilirubin Small (NEG) Urine Urobilinogen Dipstick 1.0 mg/dL (0.2 mg/dL) Urine Leukocyte Esterase Negative (NEG) Urine RBC Occ /HPF (0-2) Urine WBC 1-4 /HPF (0-4) Urine Squamous Epithelial Cells Few /LPF Urine Bacteria Few /HPF (0-FEW) Urine Hyaline Casts Occasional /HPF Urine Mucus Mod /LPF White Blood Count 3.7 x10^3/uL (4.0-11.0) 3.8 x10^3/uL (4.0-11.0) Red Blood Count 3.30 x10^6/uL (4.30-5.70) 3.27 x10^6/uL (4.30-5.70) Hemoglobin 10.4 g/dL (13.0-17.5) 10.1 g/dL (13.0-17.5) Hematocrit 31.4 % (39.0-53.0) 31.5 % (39.0-53.0) Mean Corpuscular Volume 95 fL (79-100) 96 fL (79-100) Mean Corpuscular Hemoglobin 32 pg (25-35) 31 pg (25-35) Mean Corpuscular Hemoglobin Concent 33 g/dL (31-37) 32 g/dL (31-37) Red Cell Distribution Width 17.2 % (11.5-14.5) 17.6 % (11.5-14.5) Platelet Count 131 x10^3/uL (140-400) 128 x10^3/uL (140-400) Neutrophils (%) (Auto) 68 % (31-73) 69 % (31-73) Lymphocytes (%) (Auto) 18 % (24-48) 18 % (24-48) Monocytes (%) (Auto) 7 % (0-9) 7 % (0-9) Eosinophils (%) (Auto) 6 % (0-3) 6 % (0-3) Basophils (%) (Auto) 1 % (0-3) 0 % (0-3) Neutrophils # (Auto) 2.6 x10^3uL (1.8-7.7) 2.6 x10^3uL (1.8-7.7) Lymphocytes # (Auto) 0.7 x10^3/uL (1.0-4.8) 0.7 x10^3/uL (1.0-4.8) Monocytes # (Auto) 0.3 x10^3/uL (0.0-1.1) 0.3 x10^3/uL (0.0-1.1) Eosinophils # (Auto) 0.2 x10^3/uL (0.0-0.7) 0.2 x10^3/uL (0.0-0.7) Basophils # (Auto) 0.0 x10^3/uL (0.0-0.2) 0.0 x10^3/uL (0.0-0.2) Sodium Level 141 mmol/L (136-145) 141 mmol/L (136-145) Potassium Level 4.0 mmol/L (3.5-5.1) 4.4 mmol/L (3.5-5.1) Chloride Level 108 mmol/L (98-107) 108 mmol/L (98-107) Carbon Dioxide Level 23 mmol/L (21-32) 23 mmol/L (21-32) Anion Gap 10 (6-14) 10 (6-14) Blood Urea Nitrogen 17 mg/dL (8-26) 15 mg/dL (8-26) Creatinine 1.6 mg/dL (0.7-1.3) 1.3 mg/dL (0.7-1.3) Estimated GFR (Cockcroft-Gault) 42.3 53.8 Glucose Level 94 mg/dL (70-99) 87 mg/dL (70-99) Hemoglobin A1c 5.0 % (4.8-5.6) Calcium Level 8.0 mg/dL (8.5-10.1) 8.3 mg/dL (8.5-10.1) Magnesium Level 1.6 mg/dL (1.8-2.4) Thyroid Stimulating Hormone (TSH) 1.794 uIU/mL (0.358-3.74) Laboratory Tests Test 12/01/18 05:25 White Blood Count 3.8 x10^3/uL (4.0-11.0) Red Blood Count 3.27 x10^6/uL (4.30-5.70) Hemoglobin 10.1 g/dL (13.0-17.5) Hematocrit 31.5 % (39.0-53.0) Mean Corpuscular Volume 96 fL (79-100) Mean Corpuscular Hemoglobin 31 pg (25-35) Mean Corpuscular Hemoglobin Concent 32 g/dL (31-37) Red Cell Distribution Width 17.6 % (11.5-14.5) Platelet Count 128 x10^3/uL (140-400) Neutrophils (%) (Auto) 69 % (31-73) Lymphocytes (%) (Auto) 18 % (24-48) Monocytes (%) (Auto) 7 % (0-9) Eosinophils (%) (Auto) 6 % (0-3) Basophils (%) (Auto) 0 % (0-3) Neutrophils # (Auto) 2.6 x10^3uL (1.8-7.7) Lymphocytes # (Auto) 0.7 x10^3/uL (1.0-4.8) Monocytes # (Auto) 0.3 x10^3/uL (0.0-1.1) Eosinophils # (Auto) 0.2 x10^3/uL (0.0-0.7) Basophils # (Auto) 0.0 x10^3/uL (0.0-0.2) Sodium Level 141 mmol/L (136-145) Potassium Level 4.4 mmol/L (3.5-5.1) Chloride Level 108 mmol/L (98-107) Carbon Dioxide Level 23 mmol/L (21-32) Anion Gap 10 (6-14) Blood Urea Nitrogen 15 mg/dL (8-26) Creatinine 1.3 mg/dL (0.7-1.3) Estimated GFR (Cockcroft-Gault) 53.8 Glucose Level 87 mg/dL (70-99) Calcium Level 8.3 mg/dL (8.5-10.1) Medications Active Scripts Medications Dose Route/Sig Max Daily Dose Days Date Category Zyrtec (Cetirizine Hcl) 10 Mg Tablet 1 Tab PO DAILY 11/29/18 Reported Montelukast Sodium Tablet (Montelukast Sodium) 10 Mg Tablet 10 Mg PO HS 11/29/18 Reported Proair Hfa (Albuterol Sulfate) 8.5 Gm Hfa.aer.ad 1 Puff INH PRN Q4-6HRS PRN 11/29/18 Reported Duoneb 0.5-3(2.5) Mg/3 Ml (Albuterol/Ipratropium) 3 Ml Ampul.neb 3 Ml NEB BID PRN 11/29/18 Reported Duoneb 0.5-3(2.5) Mg/3 Ml (Albuterol/Ipratropium) 3 Ml Ampul.neb 3 Ml NEB QID 11/29/18 Reported Furosemide 40 Mg Tablet 1 Tab PO DAILY 11/29/18 Reported Digoxin 125 Mcg Tablet 125 Mcg PO DAILY 11/29/18 Reported Cardizem Cd (Diltiazem Hcl) 180 Mg Cap.er.24h 120 Mg PO DAILY 11/29/18 Reported Budesonide 0.5 Mg/2 Ml Ampul.neb 1 Vial NEB BID 11/29/18 Reported Aspirin Ec (Aspirin) 81 Mg Tablet.dr 1 Tab PO DAILY 11/29/18 Reported Tamsulosin Hcl 0.4 Mg Cap.er.24h 1 Cap PO DAILY 05/20/18 Reported Clopidogrel (Clopidogrel Bisulfate) 75 Mg Tablet 1 Tab PO DAILY 05/20/18 Reported Mag-Oxide (Magnesium Oxide) 400 Mg Tablet 1 Tab PO TID 09/13/17 Reported Zocor (Simvastatin) 20 Mg Tablet 20 Mg PO HS 08/20/13 Reported Synthroid (Levothyroxine Sodium) 100 Mcg Tablet 100 Mcg PO DAILY06 08/20/13 Reported Protonix (Pantoprazole Sodium) 40 Mg Granpkt.dr 40 Mg PO DAILY08 08/20/13 Reported Nitrostat (Nitroglycerin) 0.4 Mg Tab.subl 0.4 Mg SL PRN Q5MIN 08/20/13 Reported Folic Acid 1 Mg Tablet 1 Mg PO DAILY 08/20/13 Reported Vitamin B-12 (Cyanocobalamin (Vitamin B-12)) 100 Mcg Tablet 100 Mcg PO DAILY 08/20/13 Reported Milk Of Magnesia (Magnesium Hydroxide) 400 Mg/5 Ml Oral.susp 400 Mg PO PRN Q2HR 08/20/13 Reported Acetaminophen 325 Mg Tablet 325 Mg PO PRN Q6HRS 08/20/13 Reported Impression . 1. The patient with dyspnea and cough. Cough has been present for last 2 weeks, nonproductive related to Influenza B. A chest x-ray showing mild patchy opacity right lower lobe. Likely symptoms are related to influenza pneumonia. 2. The patient with chronic exertional dyspnea for the last 6 months. He has history of three vessel coronary artery disease. He was not an optimal surgical candidate and underwent high risk PCI/stents to left main coronary artery, left anterior descending artery, and right coronary artery. Also, Impella assist device. 3. Underlying chronic obstructive pulmonary disease. 4. Obesity, but no history of sleep apnea. 5. Mild stable fibrotic changes on ct chest Plan . 1. Continue with present Influenza isolation / Tamiflu/ bronchodilators. 2. Continue present antibiotics. 3. CT chest reviewed. Mild stable peripheral fibrotic changes, mild fibrosis, no change since past ct chest. repeat in 1 yr. 4. Follow Cardiology recommendation. 5. echocardiogram reviewed. NL EF, Moderate diastolic dysfunction 6. We will do PFTs as an outpatient. dc home in [place] Warner MD Dec 01, 2018 12:36
[2018-12-01 15:00] VITALS: BP 116/68
--- NOTE | 2018-12-01 17:33 | PDOC ---
CARDIO Progress Notes Date and Time Date of Service 12/01/18 Time of Evaluation 1410 Subjective Subjective: No Chest Pain, No shortness of breath, No Palpitations, Other ( feels better today) Vitals Vitals Vital Signs Date Time Temp Pulse Resp B/P (MAP) Pulse Ox O2 Delivery O2 Flow Rate FiO2 12/01/18 15:19 Room Air 12/01/18 15:00 98.1 81 17 116/68 (84) 97 98.1 Weight Weight [ ] Input and Output Intake and Output Intake and Output 12/01/18 07:00 Intake Total 2690 ml Output Total 250 ml Balance 2440 ml Intake Oral 740 ml IV Total 1950 ml Output Urine Total 250 ml # Voids 3 Laboratory Labs Laboratory Tests Test 12/01/18 05:25 White Blood Count 3.8 x10^3/uL (4.0-11.0) Red Blood Count 3.27 x10^6/uL (4.30-5.70) Hemoglobin 10.1 g/dL (13.0-17.5) Hematocrit 31.5 % (39.0-53.0) Mean Corpuscular Volume 96 fL (79-100) Mean Corpuscular Hemoglobin 31 pg (25-35) Mean Corpuscular Hemoglobin Concent 32 g/dL (31-37) Red Cell Distribution Width 17.6 % (11.5-14.5) Platelet Count 128 x10^3/uL (140-400) Neutrophils (%) (Auto) 69 % (31-73) Lymphocytes (%) (Auto) 18 % (24-48) Monocytes (%) (Auto) 7 % (0-9) Eosinophils (%) (Auto) 6 % (0-3) Basophils (%) (Auto) 0 % (0-3) Neutrophils # (Auto) 2.6 x10^3uL (1.8-7.7) Lymphocytes # (Auto) 0.7 x10^3/uL (1.0-4.8) Monocytes # (Auto) 0.3 x10^3/uL (0.0-1.1) Eosinophils # (Auto) 0.2 x10^3/uL (0.0-0.7) Basophils # (Auto) 0.0 x10^3/uL (0.0-0.2) Sodium Level 141 mmol/L (136-145) Potassium Level 4.4 mmol/L (3.5-5.1) Chloride Level 108 mmol/L (98-107) Carbon Dioxide Level 23 mmol/L (21-32) Anion Gap 10 (6-14) Blood Urea Nitrogen 15 mg/dL (8-26) Creatinine 1.3 mg/dL (0.7-1.3) Estimated GFR (Cockcroft-Gault) 53.8 Glucose Level 87 mg/dL (70-99) Calcium Level 8.3 mg/dL (8.5-10.1) Physical Exam HEENT: Neck Supple W Full Motion Chest: Symmetric LUNGS: Other (faint bibasilar crackles) Abdomen: Soft N/T Extremities: No Calf Tenderness Neurology: alert, oriented, follow commands Assessment Assessment 1. Influenza B 2. Dyspnea: multifactorial with probable viral pneumonia, COPD/fibrosis with mild diastolic CHF. SOA and cough improved 3. CAD: s/p previous PCI/stet to RCA and more recent high-risk PCI/NASIM to LM, LAD, and RCA with Impella support. Clinically stable, recent normal MPI with EF> 60% 4. Chronic AFIB: rate controlled. EF and WM nml. Previously deemed poor candidate for OAC. 5. HTN: controlled 6. HLP; statin 7. CKD: 8. SSS s/p PPM ([employer]) Normal functioning device. 9. Hypomagnesemia; replaced Recommendations Continue secondary prevention with ASA, plavix, statin. Continue with digoxin. Cardizem as BP allows ASA for stroke prophylaxis Supportive care for influenza, probable PNA NORI DAMIAN APRN Dec 01, 2018 17:33
[2018-12-01 19:00] VITALS: BP 123/79
[2018-12-01] MEDS: MONTELUKAST SODIUM 10 MG TABLET. PO SCH (20:41)
[2018-12-01] MEDS: SIMVASTATIN 20 MG TABLET PO SCH (20:41)
[2018-12-01 23:00] VITALS: BP 112/47
[2018-12-02 03:00] VITALS: BP 123/76
[2018-12-02] MEDS: LEVOTHYROXINE 100 MCG TABLET PO SCH (05:27)
[2018-12-02 07:00] VITALS: BP 132/75
[2018-12-02] MEDS: BUDESONIDE 0.5 MG/2 ML NEBU. NEB SCH ×2 (08:16→20:11)
[2018-12-02] MEDS: IPRATRPIUM/ALBUTEROL 0.5/2.5MG 3 ML NEBU. NEB SCH ×4 (08:16→20:10)
[2018-12-02] MEDS: CYANOCOBALAMIN (VITAMIN B-12) 100 MCG TABLET PO SCH (09:41)
[2018-12-02] MEDS: TAMSULOSIN 0.4 MG CAP.ER.24H. PO SCH (09:41)
[2018-12-02] MEDS: CETIRIZINE HCL 10 MG TABLET. PO SCH (09:42)
[2018-12-02] MEDS: LACTOBACILLUS RHAMNOSUS GG 1 CAPSULE. PO SCH ×2 (09:42→21:04)
[2018-12-02] MEDS: MAGNESIUM OXIDE 400 MG TABLET PO SCH ×3 (09:42→21:04)
[2018-12-02] MEDS: CLOPIDOGREL BISULFATE 75 MG TABLET PO SCH (09:42)
[2018-12-02] MEDS: FOLIC ACID 1 MG TABLET. PO SCH (09:42)
[2018-12-02] MEDS: ASPIRIN ENTERIC COATED 81 MG TABLET.DR. PO SCH (09:43)
[2018-12-02] MEDS: OSELTAMIVIR 30 MG CAPSULE PO SCH ×2 (09:43→21:04)
[2018-12-02] MEDS: PANTOPRAZOLE 40 MG TABLET.DR. PO SCH (09:43)
[2018-12-02] MEDS: DIGOXIN 125 MCG TABLET. PO SCH (09:43)
--- NOTE | 2018-12-02 09:49 | PDOC ---
Infectious Disease Note Subjective Subjective pt is feeling better ROS ROS no n/v/d/fever Vital Sign Vital Signs Vital Signs Date Time Temp Pulse Resp B/P (MAP) Pulse Ox O2 Delivery O2 Flow Rate FiO2 12/02/18 09:43 82 132/75 12/02/18 08:20 94 Room Air 12/02/18 07:00 98.7 18 98.7 Physical Exam PHYSICAL EXAM GENERAL: Alert, oriented gentleman, not in any distress. VITAL SIGNS: Stable, afebrile. HEENT: NAD. NECK: Supple, no JVP, no lymphadenopathy. LUNGS: Clear. HEART: S1, S2 regular. ABDOMEN: Benign. EXTREMITIES: No edema or cyanosis. SKIN: Unremarkable. NEUROLOGIC: The patient is neurologically alert, awake and appropriate. No focal neurologic deficit. Objective Assessment Influenza B Weakness Lactic acidosis Renal insufficiency Hypotension A fib Plan Plan of Care continue tamiflu rocephine,, change to po dominique d/w GOLDEN Chen MD Dec 02, 2018 09:49
[2018-12-02] MEDS: cefTRIAXone IV Push 1 GM VIAL. IVP SCH (09:53)
--- NOTE | 2018-12-02 10:07 | PDOC ---
IM PROGRESS NOTES- Subjective Subjective He has increased cough, congestion and dyspnea and wheezing. Objective Vitals Vital Signs Date Time Temp Pulse Resp B/P (MAP) Pulse Ox O2 Delivery O2 Flow Rate FiO2 12/02/18 09:43 82 132/75 12/02/18 08:20 94 Room Air 12/02/18 07:00 98.7 18 98.7 Input & Output Intake and Output 12/02/18 06:59 Intake Total 2080 ml Output Total 650 ml Balance 1430 ml Intake Oral 1080 ml IV Total 1000 ml Output Urine Total 650 ml # Voids 3 Physical Exam Physical Exam General appearance - alert,ill appearing, in moderate respiratory distress Mental Status - alert, oriented to person, place, and time, affect appropriate to mood Head - normal Chest -tachypneic with bilateral wheezing and decreased breath sounds at bases. Heart - S1 and S2 irregular Abdomen - soft, nontender, nondistended, no masses or organomegaly Neurological - alert and oriented Musculoskeletal - no muscular tenderness noted Extremities - no pedal edema Skin - warm and dry Labs Laboratory Tests Test 12/01/18 05:25 White Blood Count 3.8 x10^3/uL (4.0-11.0) Red Blood Count 3.27 x10^6/uL (4.30-5.70) Hemoglobin 10.1 g/dL (13.0-17.5) Hematocrit 31.5 % (39.0-53.0) Mean Corpuscular Volume 96 fL (79-100) Mean Corpuscular Hemoglobin 31 pg (25-35) Mean Corpuscular Hemoglobin Concent 32 g/dL (31-37) Red Cell Distribution Width 17.6 % (11.5-14.5) Platelet Count 128 x10^3/uL (140-400) Neutrophils (%) (Auto) 69 % (31-73) Lymphocytes (%) (Auto) 18 % (24-48) Monocytes (%) (Auto) 7 % (0-9) Eosinophils (%) (Auto) 6 % (0-3) Basophils (%) (Auto) 0 % (0-3) Neutrophils # (Auto) 2.6 x10^3uL (1.8-7.7) Lymphocytes # (Auto) 0.7 x10^3/uL (1.0-4.8) Monocytes # (Auto) 0.3 x10^3/uL (0.0-1.1) Eosinophils # (Auto) 0.2 x10^3/uL (0.0-0.7) Basophils # (Auto) 0.0 x10^3/uL (0.0-0.2) Sodium Level 141 mmol/L (136-145) Potassium Level 4.4 mmol/L (3.5-5.1) Chloride Level 108 mmol/L (98-107) Carbon Dioxide Level 23 mmol/L (21-32) Anion Gap 10 (6-14) Blood Urea Nitrogen 15 mg/dL (8-26) Creatinine 1.3 mg/dL (0.7-1.3) Estimated GFR (Cockcroft-Gault) 53.8 Glucose Level 87 mg/dL (70-99) Calcium Level 8.3 mg/dL (8.5-10.1) Assessment Assessment 1. Pneumonia. 2. Acute atrial fibrillation. 3. Exacerbation of chronic obstructive pulmonary disease. 4. Acute hypotension. 5. Acute renal failure with chronic kidney disease. 6. Severe protein calorie malnutrition. Albumin is 2.4. 7. Morbid obesity. 8. Coronary artery disease, status post PTCA and a stent placement in right coronary artery, also has a history of myocardial infarction. 9. Esophagitis. 10. Compression fractures of thoracic spine in 2013. 11. History of gastroesophageal reflux disease with esophagitis. 12. History of erosive gastritis. 13. History of systolic heart failure. 14. Gout. 15. Allergies. 16. Morbid obesity. 17. Osteoarthritis. 18. History of avascular necrosis of hip. The patient's acute renal failure is due to vasomotor nephropathy. PLAN: Even though the patient's BNP is elevated, clinically, he appears to be dehydrated. Continue IV fluids, monitor for drop in hemoglobin which is likely dilutional. I will consult Dr. Mendez for pulmonary evaluation and management and Dr. Traore for cardiology evaluation and management because of the high BNP and history of coronary artery disease. High BNP may be due to his acute renal failure also. Continue IV fluids. Continue IV Levaquin and breathing treatments and other medications, monitor for low blood pressure. For details, please review the orders. Long-term as well as short-term prognosis of this patient is poor. TSH is stable. I will order a hemoglobin A1c in the morning, and I will also order TSH in the morning to evaluate his weight loss. For details, please refer to the orders. Sepsis- lactic acid level is 2.4. Discussed with cardiology staff. Continue IV fluids. Consult Dr. Lauro Gonsales for infectious disease evaluation and management. Pneumonia- may be viral. Continue Levaquin. Influenza B- continue Tamiflu. Diastolic congestive heart failure acute on chronic- follow-up echocardiogram. Hypomagnesemia- replace. Still coughing a lot. Dr. Gonsales has put him on IV Rocephin. Acute exacerbation of COPD- dyspnea is multifactorial including possible fluid retention although he does not have any edema. I will give him IV Lasix 40 mg 1 and IV Solu-Medrol 100 mg IV 1. Discontinue IV fluids and restart Lasix or tomorrow. No discharge today. If patient is stable he will be discharged tomorrow. Plan Plan For more details regarding further plans, please refer to the orders. Nutrition Consultation Dietary Evaluation: Recommendations by RD: Increase Calorie Intake, Protein supplementation Comments: Recommend Ensure-[place] TID Expected Outcomes/Goals: P.O. intake to meet >75% estimated needs Interpretation of weight loss: >1-2% in 1 week Malnutrition Findings: Food and Nutrition Intake (Sev: <50% est energy req 5days Weight Status: Obese PATTY FALK MD Dec 02, 2018 10:07
[2018-12-02] MEDS ORDERED: CEFP200T PO (10:09)
[2018-12-02] MEDS ORDERED: OSEL30CA PO (10:09)
[2018-12-02] MEDS: HEPARIN for SUB-Q USE 5,000 UNIT/ML VIAL. SQ SCH ×2 (10:10→21:09)
--- NOTE | 2018-12-02 10:11 | DISCH ---
DISCHARGE INSTRUCTIONS Condition on Discharge Condition on Discharge: Stable Activity After Discharge Activity Instructions for Disc: Activity as tolerated (with walker) Driving Instructions after Dis: No driving for 2 weeks Weight Bearing Status after Di: Full weight bearing Diet after Discharge Diet after Discharge: Cardiac Diet Texture: Regular Liquid Texture: Thin Liquid Contacting the [facility] after DC Call your doctor for: Concerns you may have Follow-Up Follow up with: Dr. PATTY Falk in 5 days Treatment/Equipment after DC Adaptive Equipment Issued: None PATTY FALK MD Dec 02, 2018 10:11
[2018-12-02] MEDS ORDERED: FUROSEMIDE 40 MG/4 ML VIAL. IVP ONE (10:30)
[2018-12-02] MEDS ORDERED: methylPREDNISolone SOD SUCC PF 40 MG/ML VIAL. IV ONE (10:45)
[2018-12-02 11:02] VITALS: BP 122/65
--- NOTE | 2018-12-02 11:36 | PDOC ---
PULMONARY PROGRESS NOTES Subjective mild cough/ no soa Vitals Vital Signs Date Time Temp Pulse Resp B/P (MAP) Pulse Ox O2 Delivery O2 Flow Rate FiO2 12/02/18 11:02 97.9 91 18 122/65 (84) 96 Room Air 97.9 General: Alert, No acute distress Lungs: Wheezing (mild) Cardiovascular: S1 Abdomen: Soft Neuro Exam: Alert Extremities: No Edema Skin: Warm Labs Laboratory Tests Test 12/01/18 05:25 White Blood Count 3.8 x10^3/uL (4.0-11.0) Red Blood Count 3.27 x10^6/uL (4.30-5.70) Hemoglobin 10.1 g/dL (13.0-17.5) Hematocrit 31.5 % (39.0-53.0) Mean Corpuscular Volume 96 fL (79-100) Mean Corpuscular Hemoglobin 31 pg (25-35) Mean Corpuscular Hemoglobin Concent 32 g/dL (31-37) Red Cell Distribution Width 17.6 % (11.5-14.5) Platelet Count 128 x10^3/uL (140-400) Neutrophils (%) (Auto) 69 % (31-73) Lymphocytes (%) (Auto) 18 % (24-48) Monocytes (%) (Auto) 7 % (0-9) Eosinophils (%) (Auto) 6 % (0-3) Basophils (%) (Auto) 0 % (0-3) Neutrophils # (Auto) 2.6 x10^3uL (1.8-7.7) Lymphocytes # (Auto) 0.7 x10^3/uL (1.0-4.8) Monocytes # (Auto) 0.3 x10^3/uL (0.0-1.1) Eosinophils # (Auto) 0.2 x10^3/uL (0.0-0.7) Basophils # (Auto) 0.0 x10^3/uL (0.0-0.2) Sodium Level 141 mmol/L (136-145) Potassium Level 4.4 mmol/L (3.5-5.1) Chloride Level 108 mmol/L (98-107) Carbon Dioxide Level 23 mmol/L (21-32) Anion Gap 10 (6-14) Blood Urea Nitrogen 15 mg/dL (8-26) Creatinine 1.3 mg/dL (0.7-1.3) Estimated GFR (Cockcroft-Gault) 53.8 Glucose Level 87 mg/dL (70-99) Calcium Level 8.3 mg/dL (8.5-10.1) Medications Active Scripts Medications Dose Route/Sig Max Daily Dose Days Date Category Zyrtec (Cetirizine Hcl) 10 Mg Tablet 1 Tab PO DAILY 11/29/18 Reported Montelukast Sodium Tablet (Montelukast Sodium) 10 Mg Tablet 10 Mg PO HS 11/29/18 Reported Proair Hfa (Albuterol Sulfate) 8.5 Gm Hfa.aer.ad 1 Puff INH PRN Q4-6HRS PRN 11/29/18 Reported Duoneb 0.5-3(2.5) Mg/3 Ml (Albuterol/Ipratropium) 3 Ml Ampul.neb 3 Ml NEB BID PRN 11/29/18 Reported Duoneb 0.5-3(2.5) Mg/3 Ml (Albuterol/Ipratropium) 3 Ml Ampul.neb 3 Ml NEB QID 11/29/18 Reported Furosemide 40 Mg Tablet 1 Tab PO DAILY 11/29/18 Reported Digoxin 125 Mcg Tablet 125 Mcg PO DAILY 11/29/18 Reported Cardizem Cd (Diltiazem Hcl) 180 Mg Cap.er.24h 120 Mg PO DAILY 11/29/18 Reported Budesonide 0.5 Mg/2 Ml Ampul.neb 1 Vial NEB BID 11/29/18 Reported Aspirin Ec (Aspirin) 81 Mg Tablet.dr 1 Tab PO DAILY 11/29/18 Reported Tamsulosin Hcl 0.4 Mg Cap.er.24h 1 Cap PO DAILY 05/20/18 Reported Clopidogrel (Clopidogrel Bisulfate) 75 Mg Tablet 1 Tab PO DAILY 05/20/18 Reported Mag-Oxide (Magnesium Oxide) 400 Mg Tablet 1 Tab PO TID 09/13/17 Reported Zocor (Simvastatin) 20 Mg Tablet 20 Mg PO HS 08/20/13 Reported Synthroid (Levothyroxine Sodium) 100 Mcg Tablet 100 Mcg PO DAILY06 08/20/13 Reported Protonix (Pantoprazole Sodium) 40 Mg Granpkt.dr 40 Mg PO DAILY08 08/20/13 Reported Nitrostat (Nitroglycerin) 0.4 Mg Tab.subl 0.4 Mg SL PRN Q5MIN 08/20/13 Reported Folic Acid 1 Mg Tablet 1 Mg PO DAILY 08/20/13 Reported Vitamin B-12 (Cyanocobalamin (Vitamin B-12)) 100 Mcg Tablet 100 Mcg PO DAILY 08/20/13 Reported Milk Of Magnesia (Magnesium Hydroxide) 400 Mg/5 Ml Oral.susp 400 Mg PO PRN Q2HR 08/20/13 Reported Acetaminophen 325 Mg Tablet 325 Mg PO PRN Q6HRS 08/20/13 Reported Impression . 1. The patient with dyspnea and cough. Cough has been present for last 2 weeks, nonproductive related to Influenza B. A chest x-ray showing mild patchy opacity right lower lobe. Likely symptoms are related to influenza pneumonia. 2. The patient with chronic exertional dyspnea for the last 6 months. He has history of three vessel coronary artery disease. He was not an optimal surgical candidate and underwent high risk PCI/stents to left main coronary artery, left anterior descending artery, and right coronary artery. Also, Impella assist device. 3. Underlying chronic obstructive pulmonary disease. 4. Obesity, but no history of sleep apnea. 5. Mild stable fibrotic changes on ct chest Plan . 1. Continue with present Influenza isolation / Tamiflu/ bronchodilators. 2. Continue present antibiotics. 3. CT chest reviewed. Mild stable peripheral fibrotic changes, mild fibrosis, no change since past ct chest. repeat in 1 yr. 4. Follow Cardiology recommendation. 5. echocardiogram reviewed. NL EF, Moderate diastolic dysfunction 6. We will do PFTs as an outpatient. dc home in [place] Warner MD Dec 02, 2018 11:36
[2018-12-02 15:00] VITALS: BP 115/62
[2018-12-02 19:00] VITALS: BP 121/71
[2018-12-02] MEDS: MONTELUKAST SODIUM 10 MG TABLET. PO SCH (21:04)
[2018-12-02] MEDS: SIMVASTATIN 20 MG TABLET PO SCH (21:04)
[2018-12-02 23:00] VITALS: BP 127/69
[2018-12-03 02:48] VITALS: BP 120/74
[2018-12-03] MEDS: LEVOTHYROXINE 100 MCG TABLET PO SCH (06:37)
[2018-12-03 07:00] VITALS: BP 133/67
[2018-12-03] MEDS: CLOPIDOGREL BISULFATE 75 MG TABLET PO SCH (08:56)
[2018-12-03] MEDS: TAMSULOSIN 0.4 MG CAP.ER.24H. PO SCH (08:56)
[2018-12-03] MEDS: OSELTAMIVIR 30 MG CAPSULE PO SCH (08:56)
[2018-12-03] MEDS: PANTOPRAZOLE 40 MG TABLET.DR. PO SCH (08:56)
[2018-12-03] MEDS: CYANOCOBALAMIN (VITAMIN B-12) 100 MCG TABLET PO SCH (08:56)
[2018-12-03] MEDS: FOLIC ACID 1 MG TABLET. PO SCH (08:56)
[2018-12-03] MEDS: MAGNESIUM OXIDE 400 MG TABLET PO SCH (08:57)
[2018-12-03] MEDS: DIGOXIN 125 MCG TABLET. PO SCH (08:57)
[2018-12-03] MEDS: LACTOBACILLUS RHAMNOSUS GG 1 CAPSULE. PO SCH (08:57)
[2018-12-03] MEDS: ASPIRIN ENTERIC COATED 81 MG TABLET.DR. PO SCH (08:57)
[2018-12-03] MEDS: CETIRIZINE HCL 10 MG TABLET. PO SCH (08:57)
[2018-12-03] MEDS: HEPARIN for SUB-Q USE 5,000 UNIT/ML VIAL. SQ SCH (09:00)
[2018-12-03] MEDS ORDERED: FUROSEMIDE 40 MG TABLET. PO SCH (09:00)
--- NOTE | 2018-12-03 10:21 | PDOC ---
PULMONARY PROGRESS NOTES Subjective mild cough/ no soa Vitals Vital Signs Date Time Temp Pulse Resp B/P (MAP) Pulse Ox O2 Delivery O2 Flow Rate FiO2 12/03/18 08:57 69 133/67 12/03/18 07:51 98 Room Air 12/03/18 07:00 97.8 16 97.8 General: Alert, No acute distress Lungs: Wheezing (mild) Cardiovascular: S1 Abdomen: Soft Neuro Exam: Alert Extremities: No Edema Skin: Warm Medications Active Scripts Medications Dose Route/Sig Max Daily Dose Days Date Category Zyrtec (Cetirizine Hcl) 10 Mg Tablet 1 Tab PO DAILY 11/29/18 Reported Montelukast Sodium Tablet (Montelukast Sodium) 10 Mg Tablet 10 Mg PO HS 11/29/18 Reported Proair Hfa (Albuterol Sulfate) 8.5 Gm Hfa.aer.ad 1 Puff INH PRN Q4-6HRS PRN 11/29/18 Reported Duoneb 0.5-3(2.5) Mg/3 Ml (Albuterol/Ipratropium) 3 Ml Ampul.neb 3 Ml NEB BID PRN 11/29/18 Reported Duoneb 0.5-3(2.5) Mg/3 Ml (Albuterol/Ipratropium) 3 Ml Ampul.neb 3 Ml NEB QID 11/29/18 Reported Furosemide 40 Mg Tablet 1 Tab PO DAILY 11/29/18 Reported Digoxin 125 Mcg Tablet 125 Mcg PO DAILY 11/29/18 Reported Cardizem Cd (Diltiazem Hcl) 180 Mg Cap.er.24h 120 Mg PO DAILY 11/29/18 Reported Budesonide 0.5 Mg/2 Ml Ampul.neb 1 Vial NEB BID 11/29/18 Reported Aspirin Ec (Aspirin) 81 Mg Tablet.dr 1 Tab PO DAILY 11/29/18 Reported Tamsulosin Hcl 0.4 Mg Cap.er.24h 1 Cap PO DAILY 05/20/18 Reported Clopidogrel (Clopidogrel Bisulfate) 75 Mg Tablet 1 Tab PO DAILY 05/20/18 Reported Mag-Oxide (Magnesium Oxide) 400 Mg Tablet 1 Tab PO TID 09/13/17 Reported Zocor (Simvastatin) 20 Mg Tablet 20 Mg PO HS 08/20/13 Reported Synthroid (Levothyroxine Sodium) 100 Mcg Tablet 100 Mcg PO DAILY06 08/20/13 Reported Protonix (Pantoprazole Sodium) 40 Mg Granpkt.dr 40 Mg PO DAILY08 08/20/13 Reported Nitrostat (Nitroglycerin) 0.4 Mg Tab.subl 0.4 Mg SL PRN Q5MIN 08/20/13 Reported Folic Acid 1 Mg Tablet 1 Mg PO DAILY 08/20/13 Reported Vitamin B-12 (Cyanocobalamin (Vitamin B-12)) 100 Mcg Tablet 100 Mcg PO DAILY 08/20/13 Reported Milk Of Magnesia (Magnesium Hydroxide) 400 Mg/5 Ml Oral.susp 400 Mg PO PRN Q2HR 08/20/13 Reported Acetaminophen 325 Mg Tablet 325 Mg PO PRN Q6HRS 08/20/13 Reported Impression . 1. The patient with dyspnea and cough. Cough has been present for last 2 weeks, nonproductive related to Influenza B. A chest x-ray showing mild patchy opacity right lower lobe. Likely symptoms are related to influenza pneumonia. 2. The patient with chronic exertional dyspnea for the last 6 months. He has history of three vessel coronary artery disease. He was not an optimal surgical candidate and underwent high risk PCI/stents to left main coronary artery, left anterior descending artery, and right coronary artery. Also, Impella assist device. 3. Underlying chronic obstructive pulmonary disease. 4. Obesity, but no history of sleep apnea. 5. Mild stable fibrotic changes on ct chest Plan . 1. Continue with present Influenza isolation / Tamiflu/ bronchodilators. 2. Continue present antibiotics. 3. CT chest reviewed. Mild stable peripheral fibrotic changes, mild fibrosis, no change since past ct chest. repeat in 1 yr. 4. Follow Cardiology recommendation. 5. echocardiogram reviewed. NL EF, Moderate diastolic dysfunction 6. We will do PFTs as an outpatient. fl home today LIBRA NDIAYE MD Dec 03, 2018 10:21
[2018-12-03] MEDS: cefTRIAXone IV Push 1 GM VIAL. IVP SCH (10:39)
--- NOTE | 2018-12-03 10:39 | PDOC ---
Infectious Disease Note Subjective Subjective Feeling better over-all + cough + loose stools + lost appetite Denies N/V/cramp/SOA/CP Denies F/C/S ROS ROS per HPI Vital Sign Vital Signs Vital Signs Date Time Temp Pulse Resp B/P (MAP) Pulse Ox O2 Delivery O2 Flow Rate FiO2 12/03/18 08:57 69 133/67 12/03/18 07:51 98 Room Air 12/03/18 07:00 97.8 16 97.8 Physical Exam PHYSICAL EXAM GENERAL: Propped up in bed, alert, NAD HEENT: RUBY, Oral cavity clear, dentures in place NECK: Supple. LUNGS: Soft upper airway wheezes otherwise clear,,nonlabored HEART: S1, S2 ABDOMEN: Obese, soft and nontender EXTREMITIES: No edema or cyanosis. SKIN: warm without rash NEUROLOGIC: Alert, responds appropriately Objective Assessment Influenza B Weakness Lactic acidosis Renal insufficiency,,improved Hypotension,,,improved A fib Leukopenia/pancytopenia Plan Plan of Care continue Tamiflu Rocephin,, change to po vantin Probiotics f/u cultures encourage walking/chair D/w nursing Pt got discharged before I could see him ASUNCION REGALADO APRN Dec 03, 2018 10:39 SANTY ARELLANO MD Dec 03, 2018 16:14
[2018-12-03 11:00] VITALS: BP 124/58
--- NOTE | 2018-12-03 11:24 | PDOC ---
PROGRESS NOTES Subjective Subjective pt feels better ,want to go home Objective Objective Vital Signs Date Time Temp Pulse Resp B/P (MAP) Pulse Ox O2 Delivery O2 Flow Rate FiO2 12/03/18 08:57 69 133/67 12/03/18 08:00 Room Air 12/03/18 07:51 98 12/03/18 07:00 97.8 16 97.8 Intake and Output 12/03/18 07:00 Intake Total 550 ml Output Total 0 ml Balance 550 ml Intake Oral 550 ml Output Urine Total 0 ml Physical Exam Heart: Other (distant heart sounds; AFIB rate controlled) Extremities: No cyanosis, No edema General: Alert, Oriented X3, Cooperative, No acute distress HEENT: Atraumatic, Mucous membr. moist/pink Lungs: Other (diminished bases) MUSCULOSKELETAL: Full range of motion without pain, Osteoarthritic changes both hands Neuro: Normal speech, Sensation intact Psych/Mental Status: Mental status NL, Mood NL Skin: No breakdown, No significant lesion Assessment Assessment 1. Pneumonia+influenza B lung infection 2. Acute atrial fibrillation. 3. Exacerbation of chronic obstructive pulmonary disease. 4. Acute hypotension. 5. Acute renal failure with chronic kidney disease. 6. Severe protein calorie malnutrition. Albumin is 2.4. 7. Morbid obesity. 8. Coronary artery disease, status post PTCA and a stent placement in right coronary artery, also has a history of myocardial infarction. 9. Esophagitis. 10. Compression fractures of thoracic spine in 2013. 11. History of gastroesophageal reflux disease with esophagitis. 12. History of erosive gastritis. 13. History of systolic heart failure. 14. Gout. 15. Allergies. 16. Morbid obesity. 17. Osteoarthritis. 18. History of avascular necrosis of hip. PLAN: d/c home on Tamiflu and Vantin. cr 1.3 good labs ok spoke with RN. Comment Review of Relevant I have reviewed the following items priya (where applicable) has been applied. Medications Current Medications Furosemide (Lasix) 40 mg DAILY PO Last administered on 12/03/18at 08:57; Start 12/03/18 at 09:00 Vitals/I & O Vital Sign - Last 24 Hours 12/02/18 12/02/18 12/02/18 12/02/18 11:37 15:00 15:54 19:00 Temp 98.0 98.4 98.0 98.4 Pulse 87 69 Resp 18 18 B/P (MAP) 115/62 (79) 121/71 (88) Pulse Ox 95 99 O2 Delivery Room Air Room Air Room Air Room Air 12/02/18 12/02/18 12/02/18 12/02/18 20:12 20:13 20:20 23:00 Temp 98.1 98.1 Pulse 78 Resp 18 B/P (MAP) 127/69 (88) Pulse Ox 99 99 94 O2 Delivery Room Air Room Air Room Air Room Air 12/03/18 12/03/18 12/03/18 12/03/18 02:48 07:00 07:51 08:00 Temp 98.4 97.8 98.4 97.8 Pulse 75 69 Resp 18 16 B/P (MAP) 120/74 (89) 133/67 (89) Pulse Ox 95 96 98 O2 Delivery Room Air Room Air Room Air Room Air 12/03/18 12/03/18 08:56 08:57 Pulse 69 69 B/P (MAP) 133/67 133/67 Intake and Output 12/02/18 12/02/18 12/03/18 15:00 23:00 07:00 Intake Total 550 ml Output Total 0 ml 0 ml Balance 0 ml 0 ml 550 ml Nutrition Consultation Dietary Evaluation: Recommendations by RD: Increase Calorie Intake, Protein supplementation Comments: Recommend Ensure-[place] TID Expected Outcomes/Goals: P.O. intake to meet >75% estimated needs Interpretation of weight loss: >1-2% in 1 week Malnutrition Findings: Food and Nutrition Intake (Sev: <50% est energy req 5days Weight Status: Obese BERENICE FONG MD Dec 03, 2018 11:24
--- NOTE | 2018-12-05 10:02 | PDOC3 ---
IM DISCHARGE SUMMARY Date of Admission Date of Admission Date of Admission: Nov 28, 2018 at 15:38 Date of Discharge Date of Discharge December 03, 2018 Primary Diagnosis Primary Diagnosis 1. Pneumonia. 2. Acute atrial fibrillation. 3. Exacerbation of chronic obstructive pulmonary disease. 4. Acute hypotension. 5. Acute renal failure with chronic kidney disease. 6. Severe protein calorie malnutrition. Albumin is 2.4. 7. Morbid obesity. 8. Coronary artery disease, status post PTCA and a stent placement in right coronary artery, also has a history of myocardial infarction. 9. Esophagitis. 10. Compression fractures of thoracic spine in 2012. 11. History of gastroesophageal reflux disease with esophagitis. 12. History of erosive gastritis. 13. History of systolic heart failure. 14. Gout. 15. Allergies. 16. Morbid obesity. 17. Osteoarthritis. 18. History of avascular necrosis of hip. Consults Consults Lauro Gonsales MD, Dr. Mendez Brief hospital course Brief hospital course This 73-year-old male presented to my office yesterday with complaints of cough, congestion and fatigue along with nasal drainage, getting worse for 3 weeks prior to admission. The patient also became lightheaded and dizzy. The patient had lost 13 pounds in about 5 weeks. He also had pain in the lower extremities. In the office, the patient was evaluated, and he was noted to have hypotension with a systolic blood pressure of 78/52. Because of the hypotension and exacerbation of COPD and weight loss, the patient was sent to [facility] Emergency Room. In the Emergency Room, the patient's blood pressure had improved and was started on IV fluids. Sodium was 139, potassium was 4.8, BUN 19, creatinine 2. BNP was 4674. AST 20, ALT 14, total bilirubin 1.8, glucose 107. Albumin was 2.4. White count 7.2, hemoglobin 12.4 and platelet count is 173,000. Chest x-ray showed patchy airspace opacities in the right lung base likely developing consolidation or atelectasis. The patient was admitted because of acute renal failure and pneumonia and exacerbation of COPD. For more details regarding the past history, family history, social history, surgical history and other details, please refer to History and Physical. Even though the patient's BNP is elevated, clinically, he appears to be dehydrated. Continue IV fluids, monitor for drop in hemoglobin which is likely dilutional. I will consult Dr. Mendez for pulmonary evaluation and management and Dr. Traore for cardiology evaluation and management because of the high BNP and history of coronary artery disease. High BNP may be due to his acute renal failure also. Continue IV fluids. Continue IV Levaquin and breathing treatments and other medications, monitor for low blood pressure. For details, please review the orders. Long-term as well as short-term prognosis of this patient is poor. TSH is stable. I will order a hemoglobin A1c in the morning, and I will also order TSH in the morning to evaluate his weight loss. For details, please refer to the orders. Sepsis- lactic acid level is 2.4. Discussed with cardiology staff. Continue IV fluids. Consult Dr. Lauro Gonsales for infectious disease evaluation and management. Pneumonia- may be viral. Continue Levaquin. Influenza B- continue Tamiflu. Diastolic congestive heart failure acute on chronic- follow-up echocardiogram. Hypomagnesemia- replace. Still coughing a lot. Dr. Gonsales has put him on IV Rocephin. Acute exacerbation of COPD- dyspnea is multifactorial including possible fluid retention although he does not have any edema. I will give him IV Lasix 40 mg 1 and IV Solu-Medrol 100 mg IV 1. Discontinue IV fluids and restart Lasix or tomorrow. As patient continued to do better patient was discharged home on oral Tamiflu and Vantin. Condition at the time of discharge is improving but his long-term as well as short-term prognosis is poor. Medications Medications reviewed and reconciled for discharge. Allergy Allergies Coded Allergies Type Severity Reaction Last Updated Verified No Known Drug Allergies 08/19/13 No Follow up in 5 days. DISPOSITION: Home Comments Discharge Management - 35 minutes. For other details please refer to discharge instructions PATTY FALK MD Dec 05, 2018 10:02
== END 2018-12-03 12:15 | disposition home or self-care (01) | DRG 871 ==
LOC: ER 12:51 → 5 NORTH 15:38
PROVIDERS: ADMIT Internal Medicine; ATTEND Internal Medicine
DX: A41.9 Sepsis, unspecified organism (principal); N17.0 Acute kidney failure with tubular necrosis; E43 Unspecified severe protein-calorie malnutrition; J10.08 Influenza due to other identified influenza virus with other specified pneumonia; I50.33 Acute on chronic diastolic (congestive) heart failure; J98.11 Atelectasis; J44.0 Chronic obstructive pulmonary disease with (acute) lower respiratory infection; D61.818 Other pancytopenia; I13.0 Hypertensive heart and chronic kidney disease with heart failure and stage 1 through stage 4 chronic kidney disease, or unspecified chronic kidney disease; J44.1 Chronic obstructive pulmonary disease with (acute) exacerbation; I95.9 Hypotension, unspecified; N18.9 Chronic kidney disease, unspecified; E66.01 Morbid (severe) obesity due to excess calories; K21.0 Gastro-esophageal reflux disease with esophagitis; E03.9 Hypothyroidism, unspecified; E78.00 Pure hypercholesterolemia, unspecified; E78.5 Hyperlipidemia, unspecified; E83.42 Hypomagnesemia; I25.2 Old myocardial infarction; I25.10 Atherosclerotic heart disease of native coronary artery without angina pectoris; I48.2 Chronic atrial fibrillation; I87.2 Venous insufficiency (chronic) (peripheral); J84.10 Pulmonary fibrosis, unspecified; M10.9 Gout, unspecified; M19.90 Unspecified osteoarthritis, unspecified site; Z82.49 Family history of ischemic heart disease and other diseases of the circulatory system; Z86.010 Personal history of colon polyps; Z87.891 Personal history of nicotine dependence; Z95.0 Presence of cardiac pacemaker; Z95.5 Presence of coronary angioplasty implant and graft; Z83.3 Family history of diabetes mellitus; Z68.39 Body mass index [BMI] 39.0-39.9, adult
CPT/HCPCS: 36415; 71045; 71250; 80048; 80053; 81001; 83036; 83605; 83735; 83880; 84443; 85025; 87804; 93005; 93306; 94640; 94644; 94760; J0696; J1644; J1940; J1956; J2920; J3475; J7030; J7613; J7620; J7626

== ENCOUNTER → 2020-03-06 | Outpatient (CLI) | payer MEDICARE ==
[~2020-03-06] MED LIST changes: +ALBU2.5V8 INH; +ASPI-612 PO; +BUDE0.5A NEB; +CEFP200T PO; +CETI10TA24 PO; +DIGO125T3 PO; +DILT180C2 PO; +FURO40TA4 PO; +IPRA3AMP29 NEB; +LEVO-101 PO; -LEVO100T PO; -MIDO5TAB PO; +MIDO5TAB4 PO; +MONT10TA49 PO; -NITR0.4T SL; +NITR0.4T24 SL; +OSEL30CA PO
--- NOTE | 2020-03-06 11:45 | CARD ---
MR#: [id number] Date of Study: 03/06/2020 Ordering Physician: OBED TRAORE, Referring Physician: OBED TRAORE, Tech: Diane Aguirre APPROVED REPORT EXAM: Two-dimensional and M-mode echocardiogram with Doppler and color Doppler. Other Information Quality : FairHR: 72bpm Rhythm : Pacemaker INDICATION Cardiac Disease: CAD Surgery/Intervention Pacemaker: Date: 2013 2D DIMENSIONS Left Atrium(2D)2.4 (1.6-4.0cm)IVSd1.4 (0.7-1.1cm) Aortic Root(2D)3.8 (2.0-3.7cm)LVDd4.3 (3.9-5.9cm) LVOT Diameter2.1 (1.8-2.4cm)PWd1.3 (0.7-1.1cm) LVDs2.1 (2.5-4.0cm)FS (%) 50.4 % SV66.5 mlLVEF(%)82.0 (>50%) Aortic Valve AoV Peak Mathew.94.2cm/sAoV VTI19.2cm AO Peak GR.3.5mmHgLVOT Peak Mathew.63.6cm/s LVOT VTI 11.87cmAO Mean GR.2mmHg SABINA (VMAX)1.91ha5RUX (VTI)2.17cm2 Mitral Valve MV E Uefyasdn06.2cm/sMV DECEL OKBD076sk MV A Mqxqgodn08.0cm/sMV EBQ80pj E/A Ratio1.8MVA (PHT)4.47cm2 TDI E/Lateral E'7.8E/Medial E'8.5 Pulmonary Valve PV Peak Ywevdjgd32.2cm/sPV Peak Grad.2mmHg Tricuspid Valve TR P. Nmczyqdv260yj/sRAP LWHYUQOC7eeFr TR Peak Gr.34xmWwIPDD60yeWx LEFT VENTRICLE The left ventricle is normal size. There is moderate concentric left ventricular hypertrophy. The lef t ventricular systolic function is normal. The Ejection Fraction is 55%. There is normal LV segmental wall motion. Tissue Doppler imaging reveals moderate left ventricular diastolic dysfunction. RIGHT VENTRICLE The right ventricle is normal size. There is normal right ventricular wall thickness. The right ventr icular systolic function is normal. ATRIA The left atrium size is normal. The right atrium size is normal. The interatrial septum is intact wit h no evidence for an atrial septal defect or patent foramen ovale as noted on 2-D or Doppler imaging. AORTIC VALVE The aortic valve is normal in structure and function. Doppler and Color Flow revealed no significant aortic regurgitation. There is no significant aortic valvular stenosis. MITRAL VALVE The mitral valve is thickened but opens well. There is no evidence of mitral valve prolapse. There is no mitral valve stenosis. Doppler and Color-flow revealed trace mitral regurgitation. TRICUSPID VALVE The tricuspid valve is normal in structure and function. Doppler and Color Flow revealed trace tricus pid regurgitation with an estimated PAP of 30 mmHg. There is no tricuspid valve stenosis. PULMONIC VALVE The pulmonic valve is not well visualized. Doppler and Color Flow revealed no pulmonic valvular regur gitation. GREAT VESSELS The aortic root is normal in size. The IVC is normal in size and collapses >50% with inspiration. PERICARDIAL EFFUSION There is no evidence of significant pericardial effusion. Critical Notification Critical Value: No <Conclusion> The left ventricular systolic function is normal. The Ejection Fraction is 55%. There is normal LV segmental wall motion. Pacer wire noted right atrium and ventricle. Trace mitral regurgitation. Trace tricuspid regurgitation with an estimated PAP of 30 mmHg. There is no evidence of significant pericardial effusion. Signed by : Obed Traore, Electronically Approved : 03/06/2020 11:44:59
== END | disposition home or self-care (01) ==
LOC: ECHO 09:37
PROVIDERS: ATTEND Internal Medicine Cardiovascular Disease
DX: I25.10 Atherosclerotic heart disease of native coronary artery without angina pectoris (principal)
CPT/HCPCS: 93306

== ENCOUNTER → 2020-07-26 | Outpatient (CLI) | payer MEDICARE ==
[~2020-07-26] MED LIST changes: -AMIO200T4 PO; +AMIO200T6 PO; -ASPI-612 PO; +ASPI-886 PO; -CETI10TA24 PO; +CETI10TA74 PO; -CYAN100T2 PO; +CYAN100T21 PO
== END ==
LOC: LAB 13:18
PROVIDERS: ATTEND Internal Medicine Cardiovascular Disease
DX: Z01.812 Encounter for preprocedural laboratory examination (principal); Z20.828 Contact with and (suspected) exposure to other viral communicable diseases
CPT/HCPCS: U0003

== ENCOUNTER 2020-07-30 08:19 | Outpatient (CLI) | payer MEDICARE ==
[~2020-07-30] VITALS: Ht 170.2 cm; Wt 106.6 kg
[2020-07-30 08:54] LABS: HEMATOCRIT 40.5 % (39.0-53.0); HEMOGLOBIN 13.6 g/dL (13.0-17.5); RED BLOOD COUNT 4.41 x10^6/uL (4.30-5.70); RED CELL DISTRIBUTION WIDTH 14.5 % (11.5-14.5); WHITE BLOOD COUNT 7.9 x10^3/uL (4.0-11.0)
[2020-07-30] MEDS ORDERED: BACITRACIN 50,000 UNIT in IV NORMAL SALINE 250ML 250 ML IRR ONE (09:00)
[2020-07-30 09:02] LABS: CALCIUM 9.3 mg/dL (8.5-10.1); CREATININE 1.5 mg/dL (0.7-1.3); GFR 45.5; POTASSIUM 4.2 mmol/L (3.5-5.1)
[2020-07-30 09:04] LABS: PROTHROMBIN TIME PATIENT 13.9 SEC (11.7-14.0)
--- NOTE | 2020-07-30 09:07 | EKG ---
[facility] [address] [place] [address] Test Date: 2020-07-30 Test Time: 09:00:14 Pat Name: DUNCAN VALDIVIA Department: Room: Gender: M Manager Ent: ABDELRAHMAN : 1945 Requested By: OBED ELI Order Number: [id number] Reading MD: Measurements Intervals [place] Rate: 79 P: IL: QRS: 36 QRSD: 72 T: -39 QT: 362 QTc: 421 Interpretive Statements IRREGULAR RHYTHM, NO P-WAVE FOUND VENTRICULAR PREMATURE COMPLEX(ES) LOW LIMB LEAD VOLTAGE T ABNORMALITY IN ANTERIOR LEADS INFEROLATERAL LEADS ABNORMAL ECG RI6.02 Compared to ECG 11/28/2018 14:15:32 T-wave abnormality now present Atrial fibrillation no longer present
[2020-07-30] MEDS ORDERED: LIDOCAINE 2%/EPI 1:100,000 20 ML VIAL. ONE (10:10)
[2020-07-30] MEDS ORDERED: fentaNYL PF VIAL 100 MCG/2 ML VIAL ONE (10:29)
[2020-07-30] MEDS ORDERED: MIDAZOLAM HCL/PF 5 MG/5 ML VIAL. ONE (10:29)
[2020-07-30] MEDS ORDERED: fentaNYL PF VIAL 100 MCG/2 ML VIAL IV ONE (11:15)
[2020-07-30] MEDS ORDERED: LIDOCAINE 2%/EPI 1:100,000 20 ML VIAL. IJ ONE (11:15)
[2020-07-30] MEDS ORDERED: MIDAZOLAM HCL/PF 5 MG/5 ML VIAL. IV ONE (11:15)
--- NOTE | 2020-07-30 11:26 | PDOC ---
MODERATE SEDATION ASSESSMENT RISKS/ALTERNATIVES Risks/Alternatives Risks and alternatives of this type of sedation and procedure discussed with: RISK/ALTERNATIVES: Patient H & P ON CHART H & P H & P on chart and reviewed for co-morbid conditions and appropriate labs. H&P ON CHART: Yes STATUS PREG STATUS ASSESSED: N/A MEDS/ALLERGIES REVIEWED Meds/Allergies Reviewed Medications and Allergies including time and route of recently administered narcotics and sedatives. MEDS/ALLERGIES REVIEWED: Yes ASA RATING ASA RATING: II AIRWAY ASSESSMENT Airway Assessment Airway patency, oral function limitations, presence of caps, crowns, dentures, partials, and ability to extend neck assessed. AIRWAY ASSESSMENT: Yes MALLAMPATI SCORE MALLAMPATI SCORE: II PRE-SEDATION ASSESSMENT PRE-SEDATION ASSESSMENT: Yes OBED ELI MD Jul 30, 2020 11:26
[2020-07-30 11:35] VITALS: BP 127/77
[2020-07-30 11:50] VITALS: BP 119/64
[2020-07-30 12:05] VITALS: BP 113/63
[2020-07-30 12:20] VITALS: BP 116/67
[2020-07-30 12:35] VITALS: BP 115/62
--- NOTE | 2020-07-30 12:50 | NUR ---
discharge instructions reviewed with pt and family. PIV dc'd. Pt ambulated and tolerated PO. Pt home in private vehicle
--- NOTE | 2020-07-30 12:51 | CARD ---
MR#: [id number] Date of Study: 07/30/2020 Ordering Physician: OBED TRAORE, Referring Physician: OBED TRAORE, Tech: APPROVED REPORT PROCEDURES Successful Medtronic dual-chamber permanent pacemaker generator change FLOURO TIME 0.0 minutes DOSE 1.14 Gycm2 MODERATE SEDATION 30 MINUTES INDICATIONS Sick sinus syndrome s/p permanent pacemaker implantation presenting with battery depletion PROCEDURE After explaining the risks, benefits, and alternative options, informed consent was obtained from the patient. The patient was brought to the cardiac catheterization lab and the left chest and shoulder were prepp ed and draped in a sterile manner. 20 cc of 2% lidocaine was infiltrated into the skin and subcutaneous tissues for local anesthesia. A n incision was made over the previous scar and using blunt dissection and cautery the pocket was open ed. The pacemaker capsule was exposed and opened. The generator was removed, leads were detached, i nterrogated, found to be functioning well and reattached to a new Medtronic dual-chamber permanent pa cemaker generator model [id number], serial number [id number]. This was placed in the pocket that was vila bsequently closed in 3 layers. Hemostasis was secured. The right ventricular lead showed a sensing amplitude of 5 mV, impedance of 361 ohms and the threshold of 2.5 V. Patient was noted to have eleva varun RV threshold in the past. Atrial thresholds could not be obtained secondary to permanent atrial fibrillation. Patient tolerated the procedure well. There were no immediate complications. CONCLUSION Successful Medtronic dual-chamber permanent pacemaker generator change for battery depletion in a pat ient with sick sinus syndrome. Signed by : Obed Traore, Electronically Approved : 07/30/2020 12:51:11
== END 2020-07-30 13:15 | disposition home or self-care (01) ==
LOC: CCL 08:19
PROVIDERS: ATTEND Internal Medicine Cardiovascular Disease
DX: Z45.010 Encounter for checking and testing of cardiac pacemaker pulse generator [battery] (principal); I11.0 Hypertensive heart disease with heart failure; I50.9 Heart failure, unspecified; I25.10 Atherosclerotic heart disease of native coronary artery without angina pectoris; E78.00 Pure hypercholesterolemia, unspecified; I48.91 Unspecified atrial fibrillation; J44.9 Chronic obstructive pulmonary disease, unspecified; E66.9 Obesity, unspecified; K21.9 Gastro-esophageal reflux disease without esophagitis; E03.9 Hypothyroidism, unspecified; M19.90 Unspecified osteoarthritis, unspecified site; M10.9 Gout, unspecified; Z90.49 Acquired absence of other specified parts of digestive tract; Z98.890 Other specified postprocedural states; Z87.891 Personal history of nicotine dependence; Z79.82 Long term (current) use of aspirin; Z79.899 Other long term (current) drug therapy; Z82.49 Family history of ischemic heart disease and other diseases of the circulatory system; Z68.36 Body mass index [BMI] 36.0-36.9, adult
CPT/HCPCS: 33228; 36415; 80048; 85027; 85610; 93005; 99152; 99153; C1785; J0690; J2250; J3010; J3490; J7050; 33213; J7030

== ENCOUNTER → 2020-09-16 | Outpatient (CLI) | payer MEDICARE ==
[~2020-09-16] MED LIST changes: +REGADENOSON 0.4 MG/5 ML DISP.SYRIN. IV ONE
--- NOTE | 2020-09-16 17:14 | RAD ---
MR#: [id number] Date of Study: 09/16/2020 Ordering Physician: OBED ELI, Referring Physician: MICHELLE CUMMINGS Tech: DELLA Esparza APPROVED REPORT Test Type: Pharmacological Stress Nurse/Tech: Addie Perez RN Test Indications: CAD Cardiac History: CAD, Cardiac Cath, 5 stents, HTN, PPM, See EMR. Medications: See EMR. Medical History: CKD, Hemodialysis, See EMR. Resting ECG: A-fib/ V-Paced Resting Heart Rate: 80 bpm Resting Blood Pressure: 132/75mmHg Pretest Chest Pain: No chest pain Nurse/Tech Notes Lungs CTA, Heart tones irregular. Consent: The procedure was explained to the patient in lay terms. Informed consent was witnessed. Romeo eout was entered into [employer]. History and Stress Test performed by RT Krystle (R) (N) Pharm. Details Pharmacologic stress testing was performed using 0.4mg per 5ml of regadenoson given intravenously ove r 7-10 seconds. Stress Symptoms No chest pain or symptoms. POST EXERCISE Reason for Termination: Infusion complete Max HR: 110 bpm Max Blood Pressure: 137/65mmHg Blood Pressure response to exercise: Normal blood pressure response during stress. Heart Rate response to exercise: WNL Chest Pain: No. Arrhythmia: No. ST Change: No. INTERPRETATION Stress EKG Conclusion: The resting EKG was an atrial fibrillation with nonspecific ST-T wave changes and occasionally V paced beats. The stress EKG showed no significant changes from baseline. No EKG evidence of stress-induced ischemia. Imaging Protocol IMAGE PROTOCOL: Rest Tc-99m/stress Tc-99m 1 day Rest: Stress: Viability: Radiopharm.Tc99m IufyvekqqOy57l Sestamibi Zcmd73kRm 33mCi Duration 15min. 10min. Img Date 09/16/2020 09/16/2020 Inj-Img Izqi62fjg. 60min. Rest Admin Site:IV - Right ForearmAdministrator:COLLEEN Daigle, ARRT (R)(N) Stress Admin Site: IV - Right ForearmAdministrator: Pk Gutierrez, RT (R)(N) STRESS DATA End Diast. Vol.66.0mlAv. Heart Rate84.0bpm End Syst. Vol.13.0mlCO Index BSA0.0L/min Myocardial Uwtq087.0gEject. Esfbbsrh24.0% Stress Rates Pk. Fill Rate3.88EDV/secLVtime Pk. Fill 149.23msec Pk. Empty Rate5.34ESV/secLVtime Pk. Plney643.10msec 09/15 Pk. Fill1.74EDV/sec Stress Scores Regional WT0.00Summed WT1.00 Regional WM0.00Summed WM0.00 LV Perfusion The stress images showed no significant defects. The rest images showed no significant defects. Nuclear imaging showed no reversible ischemia or infarct. Wall Motion Left ventricular systolic function was normal with no regional wall motion abnormalities and an eject ion fraction of greater than 70%. LV Perf. Quant 17 Seg. SSS0.00 17 Seg. SRS2.00 17 Seg. SDS0.00 Stress Defect Extent (% LAD)0.00Rest Defect Extent (% LAD)0.00Rev. Defect Extent (% LAD)0.00 Stress Defect Extent (% LCX) 7.50Rest Defect Extent (% LCX)0.00Rev. Defect Extent (% LCX)0.00 Stress Defect Extent (% RCA)0.00Rest Defect Extent (% RCA)4.40Rev. Defect Extent (% RCA)0.00 Stress Defect Extent (% SYDNI)1.30Rest Defect Extent (% SYDNI)1.70Rev. Defect Extent (% SYDNI)0.00 IMPRESSION Comparison of Rest to Stress Regional Wall Thickening: No Change, Normal, Mildly Decreased Wall Thic kening, Moderately Decreased Wall Thickening, Severely Decreased Wall Thickening Conclusion 1. No EKG evidence of stress-induced ischemia. 2. Nuclear imaging shows no reversible ischemia or infarct. 3. Normal left ventricular systolic function with an ejection fraction of greater than 70%. 4. Low risk Lexiscan nuclear stress test. Signed by : Humberto Rodrigez MD Electronically Approved : 09/16/2020 17:14:36
== END ==
LOC: NM 09:00
PROVIDERS: ATTEND Internal Medicine Cardiovascular Disease
DX: I25.10 Atherosclerotic heart disease of native coronary artery without angina pectoris (principal)
CPT/HCPCS: 78452; 93017; A9500; J2785

== ENCOUNTER → 2021-03-19 | Outpatient (CLI) | payer MEDICARE ==
[2020-10-25 15:00] VITALS: BP 105/48
[~2021-03-19] MED LIST changes: +ACET325T9 PO; +HYDR-2765 PO; +POLY17PO52 PO; -REGADENOSON 0.4 MG/5 ML DISP.SYRIN. IV ONE; +SENN1TAB37 PO; +TIZA4TAB2 PO
--- NOTE | 2021-03-20 09:34 | CARD ---
MR#: [id number] Date of Study: 03/19/2021 Ordering Physician: OBED ELI, Referring Physician: OBED ELI Tech: Kelly Romero [facility] APPROVED REPORT EXAM: Two-dimensional and M-mode echocardiogram with Doppler and color Doppler. Other Information Quality : Technically LimitedHR: 92bpm Rhythm : Atrial FibrillationTechnically limited study due to body habitus and smoking. Unable to p osition. INDICATION Dyspnea Atrial Fibrillation RISK FACTORS Hypertension Obesity Hyperlipidemia 2D DIMENSIONS RVDd3.7 (2.9-3.5cm)Left Atrium(2D)3.7 (1.6-4.0cm) IVSd1.1 (0.7-1.1cm)Aortic Root(2D)3.7 (2.0-3.7cm) LVDd4.7 (3.9-5.9cm)LVOT Diameter2.1 (1.8-2.4cm) PWd1.1 (0.7-1.1cm)LVDs2.5 (2.5-4.0cm) FS (%) 47.8 %SV82.3 ml LVEF(%)79.1 (>50%) Aortic Valve AoV Peak Mathew.95.3cm/sAoV VTI19.2cm AO Peak GR.3.6mmHgLVOT Peak Mathew.69.5cm/s AO Mean GR.1mmHgAVA (VMAX)2.56cm2 Mitral Valve MV E Avflhmnq074.8cm/sMV DECEL MDZB989dk MV A Nzjmtedl63.6cm/sE/A Ratio2.9 Pulmonary Valve PV Peak Ahuldcfd55.7cm/s Tricuspid Valve TR P. Xeymmjzg181fz/sTR Peak Gr.34mmHg LEFT VENTRICLE The left ventricle is normal size. There is borderline concentric left ventricular hypertrophy. The l eft ventricular systolic function is normal and the ejection fraction is within normal range. Estimat ed ejection fraction 55%. There is normal LV segmental wall motion. Transmitral Doppler flow pattern is Grade I-abnormal relaxation pattern. RIGHT VENTRICLE The right ventricle is borderline dilated. There is normal right ventricular wall thickness. The righ t ventricular systolic function is normal. ATRIA The left atrium size is normal. The right atrium size is normal. The interatrial septum is intact wit h no evidence for an atrial septal defect or patent foramen ovale as noted on 2-D or Doppler imaging. AORTIC VALVE The aortic valve is normal in structure and function. Doppler and Color Flow revealed no significant aortic regurgitation. There is no significant aortic valvular stenosis. MITRAL VALVE The mitral valve is normal in structure and function. There is no evidence of mitral valve prolapse. There is no mitral valve stenosis. Doppler and Color-flow revealed mild mitral regurgitation. TRICUSPID VALVE The tricuspid valve is normal in structure and function. Doppler and Color Flow revealed trace to mil d tricuspid regurgitation. Estimated PAP 38-40 mmHg. There is no tricuspid valve stenosis. PULMONIC VALVE Doppler and Color Flow revealed no pulmonic valvular regurgitation. There is no pulmonic valvular guerline nosis. GREAT VESSELS The aortic root is normal in size. The IVC is normal in size and collapses >50% with inspiration. PERICARDIAL EFFUSION There is no evidence of significant pericardial effusion. Critical Notification Critical Value: No <Conclusion> The left ventricular systolic function is normal and the ejection fraction is within normal range. E stimated ejection fraction 55%. There is normal LV segmental wall motion. Signed by : Gopi Villalta, Electronically Approved : 03/20/2021 09:33:56
== END ==
LOC: ECHO 10:46
PROVIDERS: ATTEND Internal Medicine Cardiovascular Disease
DX: I51.7 Cardiomegaly (principal); I25.10 Atherosclerotic heart disease of native coronary artery without angina pectoris
CPT/HCPCS: 93306

== ENCOUNTER 2021-12-21 12:36 | Inpatient (IN) | payer MEDICARE ==
[~2021-12-21] VITALS: Ht 170.2 cm; Wt 117.9 kg
[~2021-12-21 12:36] MED LIST changes: +AMIO200T53 PO; -AMIO200T6 PO; +TIZA-75 PO; -TIZA4TAB2 PO
--- NOTE | 2021-12-21 14:04 | RAD ---
XR CHEST 1V CLINICAL INDICATIONS: Bilateral lower extremity swelling / Spl. Instructions: / History: COMPARISON: November 28, 2018. Findings: There is chronic elevation of the right hemidiaphragm with chronic right lung base atelecta sis or scarring. Mild left lung base scarring is seen. No new lung infiltrate or pleural effusion or pulmonary edema or lung mass or pneumothorax is seen. Bipolar atrioventricular pacemaker is again jennifer dent. The heart size, pulmonary vasculature, mediastinum and both carole are stable. IMPRESSION: No new radiographic abnormality is seen. Electronically signed by: Prasanna Allison MD (12/21/2021 2:01 PM) [id number]
[2021-12-21] MEDS: MORPHINE SULFATE 4 MG/ML INJ. IV/SQ PRN ×2 (14:27→18:15)
--- NOTE | 2021-12-21 14:35 | RAD ---
Examination: CT of the abdomen pelvis without contrast HISTORY: History of abdominal pain, hematuria COMPARISON: 10/20/2020 TECHNIQUE: Axial CT images of the abdomen is performed without contrast. Coronal and sagittal reforma ts are performed Exposure: One or more of the following individualized dose reduction techniques were utilized for thi s examination: 1. Automated exposure control 2. Adjustment of the mA and/or kV according to patient size 3. Use of iterative reconstruction technique FINDINGS: Small right pleural effusion. Mild bibasilar lung atelectasis or infiltrates. No evidence of free air identified in the abdomen. The evaluation of the solid organs is limited due to lack of IV contrast. The evaluation of bowel is limited due to lack of oral contrast.. Mild decreased attenuation noted in the liver likely hepatic s teatosis. The spleen, adrenals grossly appears unremarkable. Small amount of fluid identified in the right perihepatic and perisplenic region. The stomach is mildly distended. The visualized pancreas gr ossly appears unremarkable. Small bowel is nondilated Feces and gas noted in the colon. Mild stranding identified in the mesentery likely mesenteric edema secondary to ascites. Multiple sigmoid colon diverticulosis. Small amount of free fluid identified in the pelvis Multiple cystic structures identified in the bilateral kidneys the largest measuring 7.8 cm likely cy sts. Severe degenerative changes thoracolumbar spine. Moderate compression change of the lumbar verte bral bodies throughout with kyphoplasty changes identified at T12, L1, L2 vertebral level. 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 IMPRESSION: 1. Small right pleural effusion with mild bibasilar lung atelectasis or infiltrates. 2. Small amount of free fluid identified in the abdomen and pelvis likely ascites. 3. Multiple cystic structures identified in the bilateral kidneys the largest measuring 7.8 cm likel y cysts. 4. Multiple sigmoid colon diverticulosis. 5. Hepatic steatosis. 6. Moderate compression change of the lumbar vertebral bodies throughout with kyphoplasty changes id entified at T12, L1, L2 vertebral level. Electronically signed by: Karl Fox MD (12/21/2021 2:33 PM) [id number]
[2021-12-21 14:38] LABS: BASO % 1 % (0-3); EOS # 0.3 x10^3/uL (0.0-0.7); EOS % 6 % (0-3); HEMATOCRIT 36.8 % (39.0-53.0); HEMOGLOBIN 12.3 g/dL (13.0-17.5); LYMPH # 0.5 x10^3/uL (1.0-4.8); LYMPH % 10 % (24-48); MEAN CORPUSCULAR HEMOGLOBIN 33 pg (25-35); MEAN CORPUSCULAR HGB CONC 34 g/dL (31-37); MEAN CORPUSCULAR VOLUME 98 fL (79-100); MONO # 0.4 x10^3/uL (0.0-1.1); MONO % 8 % (0-9); NEUT # 3.3 x10^3/uL (1.8-7.7); NEUT % 75 % (31-73); PLATELET COUNT 128 x10^3/uL (140-400); RED BLOOD COUNT 3.76 x10^6/uL (4.30-5.70); RED CELL DISTRIBUTION WIDTH 16.2 % (11.5-14.5); WHITE BLOOD COUNT 4.4 x10^3/uL (4.0-11.0)
--- NOTE | 2021-12-21 15:11 | PHYS DOC ---
Past Medical History Past Medical History: A-Fib, COPD, GERD, High Cholesterol, Hypertension, Hypotension, MO, Renal Failure, Other Additional Past Medical Histor: ORTHOSTATIC HYPOTENSION, CHRONIC HIP AND BACK PAIN Past Surgical History: Other Additional Past Surgical Histo: CARDIACCATH Smoking Status: Never Smoker Alcohol Use: None Drug Use: None General Adult EDM: Chief Complaint: URINARY FREQUENCY HPI: HPI: Patient is a 76 year old male with history of A. fib, hypertension, high cholesterol, COPD, MO, renal failure, presenting to the ED today complaining of hematuria that began yesterday with 7 out of 10 lower abdominal pain described as sharp and intermittent, symptoms since yesterday. Denies any nausea, vomiting, back pain, reports frequency. Review of Systems: Review of Systems: Constitutional: Denies fever or chills. [] Eyes: Denies change in visual acuity. [] HENT: Denies nasal congestion or sore throat. [] Respiratory: Denies cough or shortness of breath. [] Cardiovascular: Denies chest pain or edema. [] GI: Reports abdominal pain, denies nausea, vomiting, bloody stools or diarrhea. [] : Reports urinary frequency, hematuria Musculoskeletal: Denies back pain or joint pain. [] Integument: Denies rash. [] Neurologic: Denies headache, focal weakness or sensory changes. [] Psychiatric: Denies depression or anxiety. [] Heart Score: C/O Chest Pain: N/A Risk Factors: Risk Factors: DM, Current or recent (<one month) smoker, HTN, HLP, family history of CAD, obesity. Risk Scores: Score 0 - 3: 2.5% MACE over next 6 weeks - Discharge Home Score 4 - 6: 20.3% MACE over next 6 weeks - Admit for Clinical Observation Score 7 - 10: 72.7% MACE over next 6 weeks - Early Invasive Strategies Current Medications: Current Medications Medications (Trade) Dose Ordered Sig/Juanita Start Time Stop Time Status Last Admin Dose Admin Morphine Sulfate (Morphine Sulfate) 4 mg PRN Q15MIN PRN 12/21/21 13:30 12/22/21 13:29 12/21/21 14:27 4 MG Allergies: Allergies: Allergies Coded Allergies Type Severity Reaction Last Updated Verified No Known Drug Allergies 08/19/13 No Physical Exam: PE: Constitutional: Well developed, well nourished, no acute distress, non-toxic appearance. [] HENT: Normocephalic, atraumatic, bilateral external ears normal, oropharynx moist, no oral exudates, nose normal. [] Eyes: PERRLA, EOMI, conjunctiva normal, no discharge. [] Neck: Normal range of motion, no tenderness, supple, no stridor. [] Cardiovascular:Heart rate regular rhythm, no murmur [] Lungs & Thorax: Bilateral breath sounds clear to auscultation [] Abdomen: Bowel sounds normal, soft, no tenderness, no masses, no pulsatile masses. [] Skin: Warm, dry, no erythema, no rash. [] Back: No tenderness, no CVA tenderness. [] Extremities: No tenderness, no cyanosis, no clubbing, ROM intact, bilateral lower extremities with +2 pitting edema, cellulitis noted to bilateral shelton, patient states this is chronic but appears worse today per 's statement Neurologic: Alert and oriented X 3, normal motor function, normal sensory function, no focal deficits noted. [] Psychologic: Affect normal, judgement normal, mood normal. [] Current Patient Data: Labs: Laboratory Tests Test 12/21/21 14:28 White Blood Count 4.4 x10^3/uL (4.0-11.0) Red Blood Count 3.76 x10^6/uL (4.30-5.70) L Hemoglobin 12.3 g/dL (13.0-17.5) L Hematocrit 36.8 % (39.0-53.0) L Mean Corpuscular Volume 98 fL (79-100) Mean Corpuscular Hemoglobin 33 pg (25-35) Mean Corpuscular Hemoglobin Concent 34 g/dL (31-37) Red Cell Distribution Width 16.2 % (11.5-14.5) H Platelet Count 128 x10^3/uL (140-400) L Neutrophils (%) (Auto) 75 % (31-73) H Lymphocytes (%) (Auto) 10 % (24-48) L Monocytes (%) (Auto) 8 % (0-9) Eosinophils (%) (Auto) 6 % (0-3) H Basophils (%) (Auto) 1 % (0-3) Neutrophils # (Auto) 3.3 x10^3/uL (1.8-7.7) Lymphocytes # (Auto) 0.5 x10^3/uL (1.0-4.8) L Monocytes # (Auto) 0.4 x10^3/uL (0.0-1.1) Eosinophils # (Auto) 0.3 x10^3/uL (0.0-0.7) Basophils # (Auto) 0.0 x10^3/uL (0.0-0.2) Laboratory Tests 12/21/21 14:28 Vital Signs: Vital Signs Date Time Temp Pulse Resp B/P (MAP) Pulse Ox O2 Delivery O2 Flow Rate FiO2 12/21/21 14:27 22 97 Room Air 12/21/21 13:19 98.8 62 158/80 (106) 98.8 EKG: EK interpreted by Dr. Bird sinus rhythm heart rate 64 [] Radiology/Procedures: Radiology/Procedures: []PROCEDURE: VENOUS LOWER EXT BILATERAL Examination: Bilateral Lower Extremity Venous Doppler Ultrasound History: Bilateral leg redness, swelling Comparison: None Procedure: Schwab scale, color flow 2D and spectal waveform analysis images are obtained with and without compression in the area of the common femoral vein, superficial femoral vein - femoral vein junction, main femoral vein (superficial femoral vein) and popliteal vein. Veins of the proximal calf are also imaged. Findings: There is normal duplex flow, color flow and compressibility of all visualized vein segments. No evidence of deep venous thrombus is present. Bilateral lower extremity soft tissue edema. 2.2 cm lymph node identified in the right groin. Impression: 1.No evidence of DVT in the bilateral lower extremity venous system. 2. Bilateral lower extremity edema. Electronically signed by: Karl Fox MD (12/21/2021 4:22 PM) [id number] DICTATED and SIGNED BY: KARL FOX MD DATE: 12/21/21 1620 PROCEDURE: PORTABLE CHEST 1V XR CHEST 1V CLINICAL INDICATIONS: Bilateral lower extremity swelling / Spl. Instructions: / History: COMPARISON: November 28, 2018. Findings: There is chronic elevation of the right hemidiaphragm with chronic right lung base atelectasis or scarring. Mild left lung base scarring is seen. No new lung infiltrate or pleural effusion or pulmonary edema or lung mass or pneumothorax is seen. 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 The heart size, pulmonary vasculature, mediastinum and both carole are stable. IMPRESSION: No new radiographic abnormality is seen. Electronically signed by: Eric Allison MD (12/21/2021 2:01 PM) [id number] DICTATED and SIGNED BY: ERIC ALLISON MD DATE: 12/21/21 140 PROCEDURE: CT ABDOMEN PELVIS WO CONTRAST Examination: CT of the abdomen pelvis without contrast HISTORY: History of abdominal pain, hematuria COMPARISON: 10/20/2020 TECHNIQUE: Axial CT images of the abdomen is performed without contrast. Coronal and sagittal reformats are performed Exposure: One or more of the following individualized dose reduction techniques were utilized for this examination: 1. Automated exposure control 2. Adjustment of the mA and/or kV according to patient size 3. Use of iterative reconstruction technique FINDINGS: Small right pleural effusion. Mild bibasilar lung atelectasis or infiltrates. No evidence of free air identified in the abdomen. The evaluation of the solid organs is limited due to lack of IV contrast. The evaluation of bowel is limited due to lack of oral contrast.. Mild decreased attenuation noted in the liver likely hepatic steatosis. The spleen, adrenals grossly appears unremarkable. Small amount of fluid identified in the right perihepatic and perisplenic region. The stomach is mildly distended. The visualized pancreas grossly appears unremarkable. Small bowel is nondilated Feces and gas noted in the colon. Mild stranding identified in the mesentery likely mesenteric edema secondary to ascites. Multiple sigmoid colon diverticulosis. Small amount of free fluid identified in the pelvis Multiple cystic structures identified in the bilateral kidneys the largest measuring 7.8 cm likely cysts. Severe degenerative changes thoracolumbar spine. Moderate compression change of the lumbar vertebral bodies throughout with kyphoplasty changes identified at T12, L1, L2 vertebral level. 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 IMPRESSION: 1. Small right pleural effusion with mild bibasilar lung atelectasis or infiltrates. 2. Small amount of free fluid identified in the abdomen and pelvis likely ascites. 3. Multiple cystic structures identified in the bilateral kidneys the largest measuring 7.8 cm likely cysts. 4. Multiple sigmoid colon diverticulosis. 5. Hepatic steatosis. 6. Moderate compression change of the lumbar vertebral bodies throughout with kyphoplasty changes identified at T12, L1, L2 vertebral level. Electronically signed by: Karl Fox MD (12/21/2021 2:33 PM) [id number] DICTATED and SIGNED BY: KARL FOX MD DATE: 12/21/21 1421 Course & Med Decision Making: Course & Med Decision Making Pertinent Labs and Imaging studies reviewed. (See chart for details) This is 76-year-old male patient presented to the ED today complaining of hematuria, urinary frequency, and abdominal pain, symptoms began yesterday. Patient also noted to have cellulitis to bilateral lower extremities as well as edema. He states they are chronic but got worse. Vitals on arrival to the ED temperature 98.8, heart rate 62, respiration 16 on room air, blood pressure 158/80, O2 sats 96% CBC with a normal WBC, hemoglobin 12.3 with hematocrit of 36.8, CMP with creatinine of 1.6, BUN of 21, potassium of 5.8. EKG is negative. Given Kayexalate for hyperkalemia. Bilateral venous Dopplers are negative for any acute findings, Chest x-ray interpreted by radiologist as negative Urine positive for UTI-given Rocephin CT of the abdomen and pelvis noted for small right pleural effusion with mild bibasilar lung atelectasis or infiltrates. Small amount of free fluid identified in the abdomen and pelvis likely ascites. Multiple cystic structures identified in the bilateral kidneys the largest measuring 7.8 cm likely cysts. Multiple sigmoid colon diverticulosis. Hepatic steatosis. Moderate compression change of the lumbar vertebral bodies throughout with kyphoplasty changes identified at T12, L1, L2 vertebral level. Spoke to Dr. Proctor who accepted patient for admission Routine consult placed for sterile supervisor, hearing screener, urologist. Mian Disclaimer: Mian Disclaimer: This electronic medical record was generated, in whole or in part, using a voice recognition dictation system. Departure Departure Impression: Primary Impression: Hyperkalemia Additional Impressions: Acute on chronic renal failure Qualified Codes: N17.9 - Acute kidney failure, unspecified; N18.9 - Chronic kidney disease, unspecified Urinary tract infection Qualified Codes: N39.0 - Urinary tract infection, site not specified; R31.9 - Hematuria, unspecified Hematuria Qualified Codes: R31.9 - Hematuria, unspecified Congestive heart failure Qualified Codes: I50.9 - Heart failure, unspecified Disposition: ADMITTED INPATIENT Condition: STABLE Referrals: PATTY PROCTOR MD (PCP) SANDRA BAUMANN APRN Dec 21, 2021 15:11
[2021-12-21 15:29] LABS: CALCIUM 9.1 mg/dL (8.5-10.1); CREATININE 1.6 mg/dL (0.7-1.3); POTASSIUM 5.8 mmol/L (3.5-5.1)
[2021-12-21 15:34] LABS: BACTERIA,URINE 0 /HPF (0-FEW); RBC,URINE 20-40 /HPF (0-2); WBC,URINE 20-40 /HPF (0-4)
[2021-12-21 15:35] LABS: ALBUMIN/GLOBULIN RATIO 0.8 (1.0-1.7); TOTAL BILIRUBIN 2.5 mg/dL (0.2-1.0); TOTAL PROTEIN 6.7 g/dL (6.4-8.2)
[2021-12-21] MEDS ORDERED: cefTRIAXone IV Push 1 GM VIAL. IVP ONE (16:00)
--- NOTE | 2021-12-21 16:24 | RAD ---
Examination: Bilateral Lower Extremity Venous Doppler Ultrasound History: Bilateral leg redness, swelling Comparison: None Procedure: Schwab scale, color flow 2D and spectal waveform analysis images are obtained with and witho ut compression in the area of the common femoral vein, superficial femoral vein - femoral vein juncti on, main femoral vein (superficial femoral vein) and popliteal vein. Veins of the proximal calf are a lso imaged. Findings: There is normal duplex flow, color flow and compressibility of all visualized vein segments. No evide nce of deep venous thrombus is present. Bilateral lower extremity soft tissue edema. 2.2 cm lymph nod e identified in the right groin. Impression: 1.No evidence of DVT in the bilateral lower extremity venous system. 2. Bilateral lower extremity edema. Electronically signed by: Karl Fox MD (12/21/2021 4:22 PM) [id number]
[2021-12-21] MEDS ORDERED: ACETAMINOPHEN 325 MG TABLET. PO PRN (17:45)
[2021-12-21] MEDS ORDERED: FUROSEMIDE 40 MG/4 ML VIAL. IVP ONE (17:45)
[2021-12-21] MEDS ORDERED: ONDANSETRON PF 4 MG/2 ML VIAL. IVP PRN (17:45)
[2021-12-21] MEDS ORDERED: MORPHINE SULFATE 4 MG/ML INJ. IVP PRN (17:45)
[2021-12-21] MEDS ORDERED: SODIUM POLYSTYRENE SULFON/SORB 15 GM/60 ML ORAL.SUSP. PO ONE (17:45)
[2021-12-21 19:00] VITALS: BP 150/93
--- NOTE | 2021-12-21 19:00 | NUR ---
ADMISSION NOTE Pt admitted to room 526 from ER via cart just prior to shift change. Pt settled into bed, call light given to pt and explained. Pt vu. Explained to pt that he is a fall risk, and to use call light when needing to get OOB. Pt vu. Pt reports having upper dentures only in at this time and hearing aides were left at home. Glasses are on bedside table, clothing in bag at bedside. Pt does not know names of all the medications he takes, states his is going to bring them tomorrow. Med rec could not be completed at this time, meds to be reconciled tomorrow when list is available. Will monitor.
[2021-12-21] MEDS ORDERED: IPRA3AMP29 NEB (22:43)
[2021-12-21] MEDS ORDERED: ALBU2.5V8 INH (22:43)
[2021-12-21] MEDS ORDERED: GABA300C9 PO (22:43)
[2021-12-21 22:45] VITALS: BP 154/64
--- NOTE | 2021-12-22 00:36 | EKG ---
[facility] [address] [place] [address] Test Date: 2021-12-21 Test Time: 13:36:33 Pat Name: DUNCAN VALDIVIA Department: Room: 526 1 Gender: M Dub Room Engineer: : [id number] Requested By: SANDRA BAUMANN Order Number: [id number] Reading MD: Vic Traore Measurements Intervals [place] Rate: 64 P: ND: QRS: 206 QRSD: 62 T: 116 QT: 450 QTc: 469 Interpretive Statements ATRIAL FIBRILLATION DEMAND VENTRICULAR PACING Electronically Signed On 12-26-2021 14:03:58 CDT by Vic Traore
[2021-12-22 02:39] VITALS: BP 159/62
[2021-12-22 07:00] VITALS: BP 135/54
[2021-12-22 08:04] LABS: BASO % 0 % (0-3); EOS # 0.4 x10^3/uL (0.0-0.7); EOS % 7 % (0-3); HEMATOCRIT 39.6 % (39.0-53.0); HEMOGLOBIN 13.4 g/dL (13.0-17.5); LYMPH # 0.5 x10^3/uL (1.0-4.8); LYMPH % 9 % (24-48); MEAN CORPUSCULAR HEMOGLOBIN 34 pg (25-35); MEAN CORPUSCULAR HGB CONC 34 g/dL (31-37); MEAN CORPUSCULAR VOLUME 99 fL (79-100); MONO # 0.4 x10^3/uL (0.0-1.1); MONO % 7 % (0-9); NEUT # 4.2 x10^3/uL (1.8-7.7); NEUT % 77 % (31-73); PLATELET COUNT 95 x10^3/uL (140-400); RED BLOOD COUNT 3.98 x10^6/uL (4.30-5.70); RED CELL DISTRIBUTION WIDTH 16.6 % (11.5-14.5); WHITE BLOOD COUNT 5.4 x10^3/uL (4.0-11.0)
[2021-12-22 08:31] LABS: ALBUMIN/GLOBULIN RATIO 0.7 (1.0-1.7); CALCIUM 8.9 mg/dL (8.5-10.1); CREATININE 1.6 mg/dL (0.7-1.3); POTASSIUM 3.8 mmol/L (3.5-5.1); TOTAL BILIRUBIN 1.3 mg/dL (0.2-1.0); TOTAL PROTEIN 7.1 g/dL (6.4-8.2)
[2021-12-22] MEDS ORDERED: HYDROcodone/APAP 7.5/325MG 1 TAB TABLET PO PRN (09:00)
[2021-12-22] MEDS: SENNOSIDES/DOCUSATE 8.6/50MG TABLET. PO SCH (09:00)
[2021-12-22] MEDS ORDERED: ACETAMINOPHEN 325 MG TABLET. PO PRN (09:00)
[2021-12-22] MEDS ORDERED: DIGOXIN 125 MCG TABLET. PO SCH (09:00)
[2021-12-22] MEDS: POLYETHYLENE GLYCOL 3350 17 GM PACKET. PO SCH (09:00)
[2021-12-22] MEDS: GABAPENTIN 300 MG CAPSULE. PO SCH (09:00)
[2021-12-22] MEDS: IPRATRPIUM/ALBUTEROL 0.5/2.5MG 3 ML NEBU. NEB SCH ×4 (09:08→20:00)
--- NOTE | 2021-12-22 09:37 | PDOC2 ---
NATINORI CASEY MARIA R 12/22/21 0936: CARDIAC CONSULT DATE OF CONSULT Date of Consult DATE: 12/22/21 TIME: 09:30 REASON FOR CONSULT Reason for Consult: CHF REFERRING PHYSICIAN Referring Physician: Sandra Mckeon APRN SOURCE Source: Chart review, Patient HISTORY OF PRESENT ILLNESS HISTORY OF PRESENT ILLNESS This is a 76 yo male who presented secondary to hematuria. Was noted with elevated NT Pro BNP and LE edema, concerns for CHF which prompted this consult. Patient reports he began having hematuria on Wednesday. This progressed so he decided to come to the ED for further evaluation and treatment. Reports e xperiencing shortness of breath for some time. Has progressively worsened recently. Has mild LE edema bilaterally. No chest pain, palpitation, dizziness, diaphoresis, or nausea/vomiting. Hematuria has resolved. PAST MEDICAL HISTORY Past Medical History Cardiovascular: AFIB (chronic), CAD, CHF, HTN, Hyperlipidemia, Other (venous insufficiency with past RF ablation to RLE; mild PAD; ICM) Pulmonary: COPD CENTRAL NERVOUS SYSTEM: Other (No pertinent history) GI: GERD Heme/Onc: Anemia NOS Psych: No pertinent hx Musculoskeletal: Osteoarthritis Rheumatologic: No pertinent hx Infectious disease: No pertinent hx ENT: No pertinent hx Renal/: Chronic renal insuff, Benign prostatic enlarg. Endocrine: Hypothyroidism Dermatology: No pertinent hx PAST SURGICAL HISTORY Past Surgical History Pacemaker (due to symptomatic bradycardia), Cholecystectomy, Other (back surgery; PCI/NASIM to 3VD; back surgery) FAMILY HISTORY Family History: Heart Disease SOCIAL HISTORY Social History Smoke: Quit ALCOHOL: none Drugs: None Lives: with Family CURRENT MEDICATIONS CURRENT MEDICATIONS Current Medications Medications (Trade) Dose Ordered Sig/Juanita Route PRN Reason Start Time Stop Time Status Last Admin Dose Admin Morphine Sulfate (Morphine Sulfate) 4 mg PRN Q15MIN PRN IV/SQ PAIN GREATER THAN 3/10 12/21/21 13:30 12/22/21 13:29 12/21/21 14:27 Ceftriaxone Sodium (Rocephin) 1 gm 1X ONCE IVP 12/21/21 16:00 12/21/21 16:01 DC 12/21/21 22:35 Sodium Polystyrene Sulfonate (Kayexalate) 30 gm 1X ONCE PO 12/21/21 17:45 12/21/21 17:56 DC 12/21/21 20:22 Furosemide (Lasix) 40 mg 1X ONCE IVP 12/21/21 17:45 12/21/21 17:46 DC 12/21/21 20:22 ALLERGIES ALLERGIES: Coded Allergies: No Known Drug Allergies (Unverified , 08/19/13) ROS Review of System 14 point ROS conducted with pertinent positives noted above in HPI PHYSICAL EXAM PHYSICAL EXAM General: Alert, Oriented X3, Cooperative, No acute distress HEENT: atraumatic Lungs: Other (diminished bases) Heart: Other (distant heart sounds; AFIB rate controlled overall) Extremities: No cyanosis, traced pedal edema Skin: No breakdown, No significant lesion Neuro: Normal speech, Sensation intact Psych/Mental Status: Mental status NL, Mood NL MUSCULOSKELETAL: Full range of motion without pain, Osteoarthritic changes both hands VITALS/I&O VITALS/I&O: Vital Signs Date Time Temp Pulse Resp B/P (MAP) Pulse Ox O2 Delivery O2 Flow Rate FiO2 12/22/21 07:00 98.1 87 14 135/54 (81) 99 Room Air 98.1 12/21/21 19:30 2.0 LABS Lab: Laboratory Tests Test 12/21/21 14:28 12/21/21 15:02 12/21/21 17:37 12/21/21 20:00 White Blood Count 4.4 x10^3/uL (4.0-11.0) Red Blood Count 3.76 x10^6/uL (4.30-5.70) L Hemoglobin 12.3 g/dL (13.0-17.5) L Hematocrit 36.8 % (39.0-53.0) L Mean Corpuscular Volume 98 fL (79-100) Mean Corpuscular Hemoglobin 33 pg (25-35) Mean Corpuscular Hemoglobin Concent 34 g/dL (31-37) Red Cell Distribution Width 16.2 % (11.5-14.5) H Platelet Count 128 x10^3/uL (140-400) L Neutrophils (%) (Auto) 75 % (31-73) H Lymphocytes (%) (Auto) 10 % (24-48) L Monocytes (%) (Auto) 8 % (0-9) Eosinophils (%) (Auto) 6 % (0-3) H Basophils (%) (Auto) 1 % (0-3) Neutrophils # (Auto) 3.3 x10^3/uL (1.8-7.7) Lymphocytes # (Auto) 0.5 x10^3/uL (1.0-4.8) L Monocytes # (Auto) 0.4 x10^3/uL (0.0-1.1) Eosinophils # (Auto) 0.3 x10^3/uL (0.0-0.7) Basophils # (Auto) 0.0 x10^3/uL (0.0-0.2) Sodium Level 133 mmol/L (136-145) L Potassium Level 5.8 mmol/L (3.5-5.1) H Chloride Level 96 mmol/L (98-107) L Carbon Dioxide Level 29 mmol/L (21-32) Anion Gap 8 (6-14) Blood Urea Nitrogen 21 mg/dL (8-26) Creatinine 1.6 mg/dL (0.7-1.3) H Estimated GFR (Cockcroft-Gault) 42.0 BUN/Creatinine Ratio 13 (6-20) Glucose Level 94 mg/dL (70-99) Calcium Level 9.1 mg/dL (8.5-10.1) Magnesium Level 2.1 mg/dL (1.8-2.4) Total Bilirubin 2.5 mg/dL (0.2-1.0) H Aspartate Amino Transferase (AST) 53 U/L (15-37) H Alanine Aminotransferase (ALT) 20 U/L (16-63) Alkaline Phosphatase 271 U/L (46-116) H Troponin I High Sensitivity 17 ng/L (4-75) 18 ng/L (4-75) 18 ng/L (4-75) WW-Pbo-L-Type Natriuretic Peptide 67803 pg/mL (0-449) H Total Protein 6.7 g/dL (6.4-8.2) Albumin 3.0 g/dL (3.4-5.0) L Albumin/Globulin Ratio 0.8 (1.0-1.7) L Urine Collection Type Unknown Urine Color (Auto) Light yellow Urine Turbidity Clear Urine pH (Auto) 6.5 (<5.0-8.0) Urine Specific [place] 1.008 (1.000-1.030) Urine Protein (Auto) Negative mg/dL (Negative) Urine Glucose (Auto)(UA) Negative mg/dL (Negative) Urine Ketones (Auto) Negative mg/dL (Negative) Urine Blood (Auto) Large (Negative) Urine Nitrite Negative (Negative) Urine Bilirubin (Auto) Negative (Negative) Urine Urobilinogen (Auto) Normal mg/dL (Normal) Urine Leukocyte Esterase (Auto) Small (Negative) Urine RBC 20-40 /HPF (0-2) Urine WBC 20-40 /HPF (0-4) Urine Squamous Epithelial Cells Mod /LPF Urine Transitional Epithelial Cells Few /LPF Urine Bacteria 0 /HPF (0-FEW) Test 12/22/21 06:50 White Blood Count 5.4 x10^3/uL (4.0-11.0) Red Blood Count 3.98 x10^6/uL (4.30-5.70) L Hemoglobin 13.4 g/dL (13.0-17.5) Hematocrit 39.6 % (39.0-53.0) Mean Corpuscular Volume 99 fL (79-100) Mean Corpuscular Hemoglobin 34 pg (25-35) Mean Corpuscular Hemoglobin Concent 34 g/dL (31-37) Red Cell Distribution Width 16.6 % (11.5-14.5) H Platelet Count 95 x10^3/uL (140-400) L Neutrophils (%) (Auto) 77 % (31-73) H Lymphocytes (%) (Auto) 9 % (24-48) L Monocytes (%) (Auto) 7 % (0-9) Eosinophils (%) (Auto) 7 % (0-3) H Basophils (%) (Auto) 0 % (0-3) Neutrophils # (Auto) 4.2 x10^3/uL (1.8-7.7) Lymphocytes # (Auto) 0.5 x10^3/uL (1.0-4.8) L Monocytes # (Auto) 0.4 x10^3/uL (0.0-1.1) Eosinophils # (Auto) 0.4 x10^3/uL (0.0-0.7) Basophils # (Auto) 0.0 x10^3/uL (0.0-0.2) Sodium Level 140 mmol/L (136-145) Potassium Level 3.8 mmol/L (3.5-5.1) # Chloride Level 99 mmol/L (98-107) Carbon Dioxide Level 33 mmol/L (21-32) H Anion Gap 8 (6-14) Blood Urea Nitrogen 18 mg/dL (8-26) Creatinine 1.6 mg/dL (0.7-1.3) H Estimated GFR (Cockcroft-Gault) 42.0 BUN/Creatinine Ratio 11 (6-20) Glucose Level 91 mg/dL (70-99) Calcium Level 8.9 mg/dL (8.5-10.1) Total Bilirubin 1.3 mg/dL (0.2-1.0) H Aspartate Amino Transferase (AST) 39 U/L (15-37) H Alanine Aminotransferase (ALT) 21 U/L (16-63) Alkaline Phosphatase 257 U/L (46-116) H Total Protein 7.1 g/dL (6.4-8.2) Albumin 3.0 g/dL (3.4-5.0) L Albumin/Globulin Ratio 0.7 (1.0-1.7) L Laboratory Tests 12/21/21 14:28 12/22/21 06:50 Laboratory Tests 12/21/21 14:28 12/22/21 06:50 ECHOCARDIOGRAM ECHOCARDIOGRAM <Conclusion> The left ventricular systolic function is normal and the ejection fraction is within normal range. Estimated ejection fraction 55%. There is normal LV segmental wall motion. DATE: 03/19/21 [id number] 0 STRESS TEST STRESS TEST Conclusion 1. No EKG evidence of stress-induced ischemia. 2. Nuclear imaging shows no reversible ischemia or infarct. 3. Normal left ventricular systolic function with an ejection fraction of greater than 70%. 4. Low risk Lexiscan nuclear stress test. DATE: 09/16/20 [id number] 0 HEART CATH HEART CATH Conclusion Successful high risk PCI/drug eluting stents placement to the left main coronary artery, left anterior descending artery and right coronary artery with the help of hemodynamic support from Impella percutaneous ventricular assist device. Recommendations 1. Aspirin 325 mg daily 2. Plavix 75 mg daily for preferably one year 3. Cardiovascular risk factor modification. DATE: 05/24/18 1421 ASSESSMENT/PLAN ASSESSMENT/PLAN 1. Hematuria; now resolved 2. Mild acute on chronic diastolic CHF 3. Chronic AFIB: rate controlled. Poor candidate for OAC due to recurrent hematuria. Left atrial appendage closure has been discussed in past, but patient has declined. 4. CAD: 3VD s/p PCI/NASIM to LM, LAD, and RCA 2017 as noted above. clinically stable. Stress test 10/03 without evidence of ischemia as noted above. 5. Hypertension; mildly elevated 6. Hyperlipidemia; statin 7. CKD, hyperkalemia, bilateral renal cyst; as per nephrology 8. SSS sp PPM ([employer]): intermittent v-pacing. device check 12/21/21 with normal function, adequate battery life, stable lead impedances. 9. Hypothyroidism: on replacement 10. Venous insufficiency: s/p RF ablation of bilateral greater and right lesser saphenous vein, stable Recommendations Mild diuresis Continue Cardizem and Digoxin for rate control Resume secondary prevention ASA for stroke prophylaxis unless hematuria persists No OAC due to recurrent hematuria. Patient has refused LAAO as noted about Supportive care OBED ELI MD 12/22/212042: CARDIAC CONSULT ASSESSMENT/PLAN ASSESSMENT/PLAN Patient seen and examined. Agree with SCRIPT READER's assessment and plan as stated above NORI DAMIAN APRN Dec 22, 2021 09:36 OBED ELI MD Dec 22, 2021 20:43
--- NOTE | 2021-12-22 09:48 | PDOC ---
Provider Note Date of Service: DATE: 12/22/21 TIME: 09:47 Provider Note H&P dictated #[id number] Justifications for Admission Other Justification PATTY FALK MD Dec 22, 2021 09:48
--- NOTE | 2021-12-22 10:23 | PDOC ---
PULMONARY PROGRESS NOTES DATE: 12/22/21 TIME: 10:23 Vitals Vital Signs Date Time Temp Pulse Resp B/P (MAP) Pulse Ox O2 Delivery O2 Flow Rate FiO2 12/22/21 07:00 98.1 87 14 135/54 (81) 99 Room Air 98.1 12/21/21 19:30 2.0 General: Alert, No acute distress Lungs: Wheezing Cardiovascular: S1 Abdomen: Soft Extremities: No Edema Labs Laboratory Tests Test 12/21/21 14:28 12/21/21 15:02 12/21/21 17:37 12/21/21 20:00 White Blood Count 4.4 x10^3/uL (4.0-11.0) Red Blood Count 3.76 x10^6/uL (4.30-5.70) Hemoglobin 12.3 g/dL (13.0-17.5) Hematocrit 36.8 % (39.0-53.0) Mean Corpuscular Volume 98 fL (79-100) Mean Corpuscular Hemoglobin 33 pg (25-35) Mean Corpuscular Hemoglobin Concent 34 g/dL (31-37) Red Cell Distribution Width 16.2 % (11.5-14.5) Platelet Count 128 x10^3/uL (140-400) Neutrophils (%) (Auto) 75 % (31-73) Lymphocytes (%) (Auto) 10 % (24-48) Monocytes (%) (Auto) 8 % (0-9) Eosinophils (%) (Auto) 6 % (0-3) Basophils (%) (Auto) 1 % (0-3) Neutrophils # (Auto) 3.3 x10^3/uL (1.8-7.7) Lymphocytes # (Auto) 0.5 x10^3/uL (1.0-4.8) Monocytes # (Auto) 0.4 x10^3/uL (0.0-1.1) Eosinophils # (Auto) 0.3 x10^3/uL (0.0-0.7) Basophils # (Auto) 0.0 x10^3/uL (0.0-0.2) Sodium Level 133 mmol/L (136-145) Potassium Level 5.8 mmol/L (3.5-5.1) Chloride Level 96 mmol/L (98-107) Carbon Dioxide Level 29 mmol/L (21-32) Anion Gap 8 (6-14) Blood Urea Nitrogen 21 mg/dL (8-26) Creatinine 1.6 mg/dL (0.7-1.3) Estimated GFR (Cockcroft-Gault) 42.0 BUN/Creatinine Ratio 13 (6-20) Glucose Level 94 mg/dL (70-99) Calcium Level 9.1 mg/dL (8.5-10.1) Magnesium Level 2.1 mg/dL (1.8-2.4) Total Bilirubin 2.5 mg/dL (0.2-1.0) Aspartate Amino Transf (AST/SGOT) 53 U/L (15-37) Alanine Aminotransferase (ALT/SGPT) 20 U/L (16-63) Alkaline Phosphatase 271 U/L (46-116) Troponin I High Sensitivity 17 ng/L (4-75) 18 ng/L (4-75) 18 ng/L (4-75) MD-Zce-Q-Type Natriuretic Peptide 12828 pg/mL (0-449) Total Protein 6.7 g/dL (6.4-8.2) Albumin 3.0 g/dL (3.4-5.0) Albumin/Globulin Ratio 0.8 (1.0-1.7) Urine Collection Type Unknown Urine Color (Auto) Light yellow Urine Turbidity Clear Urine pH (Auto) 6.5 (<5.0-8.0) Urine Specific [place] 1.008 (1.000-1.030) Urine Protein (Auto) Negative mg/dL (Negative) Urine Glucose (Auto)(UA) Negative mg/dL (Negative) Urine Ketones (Auto) Negative mg/dL (Negative) Urine Blood (Auto) Large (Negative) Urine Nitrite Negative (Negative) Urine Bilirubin (Auto) Negative (Negative) Urine Urobilinogen (Auto) Normal mg/dL (Normal) Urine Leukocyte Esterase (Auto) Small (Negative) Urine RBC 20-40 /HPF (0-2) Urine WBC 20-40 /HPF (0-4) Urine Squamous Epithelial Cells Mod /LPF Urine Transitional Epithelial Cells Few /LPF Urine Bacteria 0 /HPF (0-FEW) Test 12/22/21 06:50 White Blood Count 5.4 x10^3/uL (4.0-11.0) Red Blood Count 3.98 x10^6/uL (4.30-5.70) Hemoglobin 13.4 g/dL (13.0-17.5) Hematocrit 39.6 % (39.0-53.0) Mean Corpuscular Volume 99 fL (79-100) Mean Corpuscular Hemoglobin 34 pg (25-35) Mean Corpuscular Hemoglobin Concent 34 g/dL (31-37) Red Cell Distribution Width 16.6 % (11.5-14.5) Platelet Count 95 x10^3/uL (140-400) Neutrophils (%) (Auto) 77 % (31-73) Lymphocytes (%) (Auto) 9 % (24-48) Monocytes (%) (Auto) 7 % (0-9) Eosinophils (%) (Auto) 7 % (0-3) Basophils (%) (Auto) 0 % (0-3) Neutrophils # (Auto) 4.2 x10^3/uL (1.8-7.7) Lymphocytes # (Auto) 0.5 x10^3/uL (1.0-4.8) Monocytes # (Auto) 0.4 x10^3/uL (0.0-1.1) Eosinophils # (Auto) 0.4 x10^3/uL (0.0-0.7) Basophils # (Auto) 0.0 x10^3/uL (0.0-0.2) Sodium Level 140 mmol/L (136-145) Potassium Level 3.8 mmol/L (3.5-5.1) Chloride Level 99 mmol/L (98-107) Carbon Dioxide Level 33 mmol/L (21-32) Anion Gap 8 (6-14) Blood Urea Nitrogen 18 mg/dL (8-26) Creatinine 1.6 mg/dL (0.7-1.3) Estimated GFR (Cockcroft-Gault) 42.0 BUN/Creatinine Ratio 11 (6-20) Glucose Level 91 mg/dL (70-99) Calcium Level 8.9 mg/dL (8.5-10.1) Total Bilirubin 1.3 mg/dL (0.2-1.0) Aspartate Amino Transf (AST/SGOT) 39 U/L (15-37) Alanine Aminotransferase (ALT/SGPT) 21 U/L (16-63) Alkaline Phosphatase 257 U/L (46-116) Total Protein 7.1 g/dL (6.4-8.2) Albumin 3.0 g/dL (3.4-5.0) Albumin/Globulin Ratio 0.7 (1.0-1.7) Laboratory Tests Test 12/21/21 14:28 12/21/21 15:02 12/21/21 17:37 12/21/21 20:00 White Blood Count 4.4 x10^3/uL (4.0-11.0) Red Blood Count 3.76 x10^6/uL (4.30-5.70) Hemoglobin 12.3 g/dL (13.0-17.5) Hematocrit 36.8 % (39.0-53.0) Mean Corpuscular Volume 98 fL (79-100) Mean Corpuscular Hemoglobin 33 pg (25-35) Mean Corpuscular Hemoglobin Concent 34 g/dL (31-37) Red Cell Distribution Width 16.2 % (11.5-14.5) Platelet Count 128 x10^3/uL (140-400) Neutrophils (%) (Auto) 75 % (31-73) Lymphocytes (%) (Auto) 10 % (24-48) Monocytes (%) (Auto) 8 % (0-9) Eosinophils (%) (Auto) 6 % (0-3) Basophils (%) (Auto) 1 % (0-3) Neutrophils # (Auto) 3.3 x10^3/uL (1.8-7.7) Lymphocytes # (Auto) 0.5 x10^3/uL (1.0-4.8) Monocytes # (Auto) 0.4 x10^3/uL (0.0-1.1) Eosinophils # (Auto) 0.3 x10^3/uL (0.0-0.7) Basophils # (Auto) 0.0 x10^3/uL (0.0-0.2) Sodium Level 133 mmol/L (136-145) Potassium Level 5.8 mmol/L (3.5-5.1) Chloride Level 96 mmol/L (98-107) Carbon Dioxide Level 29 mmol/L (21-32) Anion Gap 8 (6-14) Blood Urea Nitrogen 21 mg/dL (8-26) Creatinine 1.6 mg/dL (0.7-1.3) Estimated GFR (Cockcroft-Gault) 42.0 BUN/Creatinine Ratio 13 (6-20) Glucose Level 94 mg/dL (70-99) Calcium Level 9.1 mg/dL (8.5-10.1) Magnesium Level 2.1 mg/dL (1.8-2.4) Total Bilirubin 2.5 mg/dL (0.2-1.0) Aspartate Amino Transf (AST/SGOT) 53 U/L (15-37) Alanine Aminotransferase (ALT/SGPT) 20 U/L (16-63) Alkaline Phosphatase 271 U/L (46-116) Troponin I High Sensitivity 17 ng/L (4-75) 18 ng/L (4-75) 18 ng/L (4-75) IF-Yfi-T-Type Natriuretic Peptide 83904 pg/mL (0-449) Total Protein 6.7 g/dL (6.4-8.2) Albumin 3.0 g/dL (3.4-5.0) Albumin/Globulin Ratio 0.8 (1.0-1.7) Urine Collection Type Unknown Urine Color (Auto) Light yellow Urine Turbidity Clear Urine pH (Auto) 6.5 (<5.0-8.0) Urine Specific [place] 1.008 (1.000-1.030) Urine Protein (Auto) Negative mg/dL (Negative) Urine Glucose (Auto)(UA) Negative mg/dL (Negative) Urine Ketones (Auto) Negative mg/dL (Negative) Urine Blood (Auto) Large (Negative) Urine Nitrite Negative (Negative) Urine Bilirubin (Auto) Negative (Negative) Urine Urobilinogen (Auto) Normal mg/dL (Normal) Urine Leukocyte Esterase (Auto) Small (Negative) Urine RBC 20-40 /HPF (0-2) Urine WBC 20-40 /HPF (0-4) Urine Squamous Epithelial Cells Mod /LPF Urine Transitional Epithelial Cells Few /LPF Urine Bacteria 0 /HPF (0-FEW) Test 12/22/21 06:50 White Blood Count 5.4 x10^3/uL (4.0-11.0) Red Blood Count 3.98 x10^6/uL (4.30-5.70) Hemoglobin 13.4 g/dL (13.0-17.5) Hematocrit 39.6 % (39.0-53.0) Mean Corpuscular Volume 99 fL (79-100) Mean Corpuscular Hemoglobin 34 pg (25-35) Mean Corpuscular Hemoglobin Concent 34 g/dL (31-37) Red Cell Distribution Width 16.6 % (11.5-14.5) Platelet Count 95 x10^3/uL (140-400) Neutrophils (%) (Auto) 77 % (31-73) Lymphocytes (%) (Auto) 9 % (24-48) Monocytes (%) (Auto) 7 % (0-9) Eosinophils (%) (Auto) 7 % (0-3) Basophils (%) (Auto) 0 % (0-3) Neutrophils # (Auto) 4.2 x10^3/uL (1.8-7.7) Lymphocytes # (Auto) 0.5 x10^3/uL (1.0-4.8) Monocytes # (Auto) 0.4 x10^3/uL (0.0-1.1) Eosinophils # (Auto) 0.4 x10^3/uL (0.0-0.7) Basophils # (Auto) 0.0 x10^3/uL (0.0-0.2) Sodium Level 140 mmol/L (136-145) Potassium Level 3.8 mmol/L (3.5-5.1) Chloride Level 99 mmol/L (98-107) Carbon Dioxide Level 33 mmol/L (21-32) Anion Gap 8 (6-14) Blood Urea Nitrogen 18 mg/dL (8-26) Creatinine 1.6 mg/dL (0.7-1.3) Estimated GFR (Cockcroft-Gault) 42.0 BUN/Creatinine Ratio 11 (6-20) Glucose Level 91 mg/dL (70-99) Calcium Level 8.9 mg/dL (8.5-10.1) Total Bilirubin 1.3 mg/dL (0.2-1.0) Aspartate Amino Transf (AST/SGOT) 39 U/L (15-37) Alanine Aminotransferase (ALT/SGPT) 21 U/L (16-63) Alkaline Phosphatase 257 U/L (46-116) Total Protein 7.1 g/dL (6.4-8.2) Albumin 3.0 g/dL (3.4-5.0) Albumin/Globulin Ratio 0.7 (1.0-1.7) Medications Active Scripts Medications Dose Route/Sig Max Daily Dose Days Date Category Gabapentin 300 Mg Capsule 1 Cap PO DAILY 12/21/21 Reported Duoneb 0.5-3(2.5) Mg/3 Ml (Albuterol/Ipratropium) 3 Ml Ampul.neb 1 Vial NEB QID 12/21/21 Reported Proair Hfa Inhaler (Albuterol Sulfate) 8.5 Gm Hfa.aer.ad 2 Puff INH PRN Q4HRS PRN 12/21/21 Reported Sennosides-Docusate Sodium Tab (Sennosides/Docusate Sodium) 1 Each Tablet 2 Tab PO DAILY 30 10/24/20 Rx Polyethylene Glycol 3350 17 Gm Powd.pack 17 Gm PO DAILY 10 10/24/20 Rx Tylenol (Acetaminophen) 325 Mg Tablet 650 Mg PO PRN Q6HRS PRN 30 10/24/20 Rx Hydrocodone-Apap 7.5-325 (Hydrocodone Bit/Acetaminophen) 1 Tab Tablet 1 Tab PO PRN Q6HRS PRN 10/24/20 Rx Tizanidine Hcl 4 Mg Tablet 1 Tab PO QHS 10/21/20 Reported Montelukast Sodium Tablet (Montelukast Sodium) 10 Mg Tablet 10 Mg PO HS 11/29/18 Reported Digoxin 125 Mcg Tablet 125 Mcg PO DAILY 11/29/18 Reported Cardizem Cd (Diltiazem Hcl) 180 Mg Cap.er.24h 120 Mg PO DAILY 11/29/18 Reported Mag-Oxide (Magnesium Oxide) 400 Mg Tablet 1 Tab PO TID 09/13/17 Reported Zocor (Simvastatin) 20 Mg Tablet 20 Mg PO HS 08/20/13 Reported Synthroid (Levothyroxine Sodium) 100 Mcg Tablet 100 Mcg PO DAILY06 08/20/13 Reported Protonix Packet (Pantoprazole Sodium) 40 Mg Granpkt.dr 40 Mg PO DAILY08 08/20/13 Reported Folic Acid 1 Mg Tablet 1 Mg PO DAILY 08/20/13 Reported Vitamin B-12 (Cyanocobalamin (Vitamin B-12)) 100 Mcg Tablet 100 Mcg PO DAILY 08/20/13 Reported Impression . Full note dictated Progressive dyspnea multifactorial Concur with current medical management JUAN C OCHOA MD Dec 22, 2021 10:23
--- NOTE | 2021-12-22 10:32 | HP ---
DATE OF SERVICE: 12/22/2021 ADMIT DATE: 12/21/2021 HISTORY OF PRESENT ILLNESS: A 76 years old male who has a history of systolic congestive heart failure, chronic kidney disease, COPD, chronic atrial fibrillation, history of coronary artery disease with right coronary artery stent, osteoarthritis, COPD, avascular necrosis of the bone of the left hip and multiple other medical problems started having hematuria 2 days ago. He also started having lower abdominal pain and continues to have lower abdominal pain. Because of the hematuria and lower abdominal pain, he came to the emergency room. He also has been wheezing for quite some time as per patient. Denies any cold, but has some cough and congestion, mucus is clear. He denies any nausea, vomiting, dysuria. He does have chronic joint pains. In the emergency room, the patient was evaluated. He was noted to have fluid retention. WBC count was 4.4, hemoglobin 12.3, platelet count 128,000. Sodium 133, potassium 5.8, BUN 21, creatinine 1.6, AST 53, ALT 20, alkaline phosphatase 271, albumin 3. BNP was 12,254. Urinalysis shows large blood, nitrite negative, 20-40 rbc's and wbc's. Lower extremity ultrasounds were negative for DVT. Chest x-ray shows chronic elevation of the right hemidiaphragm with chronic right lung base atelectasis or scarring. No pleural effusion or pulmonary edema noted. CT scan of abdomen and pelvis shows small right pleural effusion with mild bibasilar lung atelectasis or infiltrates, small amount of free fluid identified in the abdomen and pelvis, likely ascites, multiple cystic structures in both kidneys, largest measuring 7.8 cm, likely cysts, multiple sigmoid colon diverticulosis, hepatic steatosis and moderate compression change of the lumbar vertebral bodies throughout with kyphoplasty changes identified at T12, L1, L2. Because of the hematuria, congestive heart failure, acute on chronic systolic and exacerbation of COPD and multiple problems, the patient was admitted for further evaluation and management. SYSTEMS REVIEW: Complains of dyspnea with wheezing, has hematuria, lower abdominal pain, joint pains. Denies any chest pains or palpitations. Other systems reviewed and are negative. PAST MEDICAL HISTORY: The patient has a history of recurrent exacerbation of COPD, pneumonia, atrial fibrillation, CAD with right coronary artery stent, knee pain, osteoarthritis, gout, COPD, avascular necrosis of the bone of the left hip, hypertension, hyperlipidemia, colonic polyps, diverticulosis, esophagitis, had tubulovillous polyps removed on 03/09/2013, history of alcoholism in 2012, history of acute myocardial infarction, status post PTCA in 2012, compression fractures of the thoracic and lumbar spine in 2012, history of sepsis and acute renal failure in 2012, and erosive gastritis. PAST SURGICAL HISTORY: Had bilateral cataract surgery, back surgery, adenoidectomy, fracture of the left humerus, stent placed in the right coronary artery in 04/2018, had PTCA in 2012, pacemaker placement in 2012, EGD with biopsy and colonoscopy with polypectomy and also had subarachnoid hemorrhage, post-syncopal fall with facial trauma and hematoma and tonsillectomy and cholecystectomy. ALLERGIES: No known any. FAMILY HISTORY: Brother had coronary artery disease. Father and brother had congestive heart failure. Sister also had congestive heart failure. Father and brother had diabetes mellitus. SOCIAL HISTORY: No history of drug abuse. Past history of alcoholism, none currently. Former smoker. He is . MEDICATIONS: Reviewed. I do believe he is on aspirin, but I do not see that listed on the home medications, will verify from the office notes. PHYSICAL EXAMINATION: VITAL SIGNS: Temperature 98.3, pulse 85 per minute, respirations 20 per minute, blood pressure 146/76 mmHg. GENERAL: The patient is an elderly male who is alert, oriented x 3, and in mild respiratory distress, on oxygen by nasal cannula 2 liters per minute. EYES: Pupils reactive to light. Conjunctivae pale. Sclerae muddy. HENT: Unremarkable. NECK: Supple. JVP normal. No thyromegaly. Trachea midline. LUNGS: Bilateral wheezing. He is in [id number] respiratory distress. CARDIOVASCULAR: S1, S2, regular. ABDOMEN: Soft, obese, tenderness in the lower abdomen. There is no guarding, no rigidity. Bowel sounds present. EXTREMITIES: 2-3+ edema bilaterally. No calf tenderness. CENTRAL NERVOUS SYSTEM: Generalized weakness. Mild tenderness of the lumbar spine. LABORATORY FINDINGS: As noted earlier. IMPRESSION: 1. Acute on chronic systolic congestive heart failure. 2. Exacerbation of chronic obstructive pulmonary disease. 3. Hematuria. 4. Chronic kidney disease. 5. Acute on chronic respiratory failure. 6. Urinary tract infection. 7. Chronic atrial fibrillation. 8. Low back pain. 9. Coronary artery disease with history of right coronary artery stent placement. 10. Gout. 11. Hyperlipidemia. 12. Hypertension. 13. Obesity. 14. 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 15. Diverticulosis. 16. Renal cyst. 17. History of alcoholism. 18. Physical deconditioning. 19. Osteoarthritis. PLAN: 1. Acute on chronic systolic congestive heart failure. Start IV Lasix. Consult Dr. Villalta for cardiology evaluation and management. 2. Hematuria. Monitor. The patient is not on any anticoagulation. I will also not start him on any DVT prophylaxis. We will use SCDs for DVT prophylaxis. Consult Dr. Alfredo for Urology evaluation and management. 3. Chronic kidney disease and fluid retention. Consult Dr. Segal for nephrology evaluation and management. 4. Possible UTI. Start IV Rocephin. 5. Exacerbation of chronic obstructive pulmonary disease. Consult Dr. Garibay for pulmonary evaluation and management. Start breathing treatment. May need to give steroids if no improvement. 6. Osteoarthritis. Continue hydrocodone. For details, please refer to the orders. Long-term as well as short-term prognosis of this patient is poor due to his multiple medical problems. LATRICE SHELDON: Judith TID: [id number]
--- NOTE | 2021-12-22 10:33 | PDOC2 ---
CONSULT Date of Consult Date of Consult DATE: 12/22/21 TIME: 10:26 Reason for Consult Reason for Consult: HIGH K AND RENAL FAILURE Referring Physician Referring Physician: DILEEP Identification/Chief Complaint Chief Complaint ABD PAIN Source Source: Chart review, Patient History of Present Illness Reason for Visit: THIS IS A 76 YR OLD WITH ABD PAIN AND HEMATURIA. CARDIOLOGY EVAL FOR CONCERNS OF CHF. HAS HX OF AFIB. CR OF 1.5-2.0 AT BASELINE AND NOW AND IT IS C/W HIS STAGE 3B CKD. K OF 5.8 BUT IMPROVED AFTER LASIX AND NOW K IS 3.8. UA NOTABLE FOR HEMAT URIA AND ABD IMAGING NOTABLE FOR MULTIPLE BILATERAL RENAL CYSTS. THIS IS C/W WHAT WAS SEEN ON IMAGING IN Oct. HAS HX OF HTN AND END ORGAN RENAL DAMAGE IS FELT TO BE RELATED TO THIS Past Medical History Cardiovascular: AFIB, CAD, CHF, HTN, Hyperlipidemia, Other Pulmonary: COPD CENTRAL NERVOUS SYSTEM: Other GI: GERD Heme/Onc: Anemia NOS Psych: No pertinent hx Musculoskeletal: Osteoarthritis Rheumatologic: No pertinent hx Infectious disease: No pertinent hx Renal/: Chronic renal insuff, Benign prostatic enlarg. Endocrine: Hypothyroidism Past Surgical History Past Surgical History: Pacemaker, Cholecystectomy, Other Family History Family History: Heart Disease Social History ALCOHOL: none Drugs: None Lives: with Family Current Problem List Problem List Problems Medical Problems: (1) Acute on chronic renal failure Status: Acute (2) Congestive heart failure Status: Acute (3) Hematuria Status: Acute (4) Urinary tract infection Status: Acute Current Medications Current Medications Current Medications Morphine Sulfate (Morphine Sulfate) 4 mg PRN Q15MIN PRN IV/SQ PAIN GREATER THAN 3/10 Last administered on 12/21/21at 14:27; Start 12/21/21 at 13:30; Stop 12/22/21 at 13:29 Ceftriaxone Sodium (Rocephin) 1 gm 1X ONCE IVP Last administered on 12/21/21at 22:35; Start 12/21/21 at 16:00; Stop 12/21/21 at 16:01; Status DC Ondansetron HCl (Zofran) 4 mg PRN Q8HRS PRN IVP NAUSEA/VOMITING; Start 12/21/21 at 17:45; Stop 12/22/21 at 17:44 Morphine Sulfate (Morphine Sulfate) 4 mg PRN Q2HR PRN IVP PAIN; Start 12/21/21 at 17:45; Stop 12/22/21 at 17:44 Acetaminophen (Tylenol) 650 mg PRN Q4HRS PRN PO FEVER > 100.3'F; Start 12/21/21 at 17:45; Stop 12/22/21 at 17:44 Sodium Polystyrene Sulfonate (Kayexalate) 30 gm 1X ONCE PO Last administered on 12/21/21at 20:22; Start 12/21/21 at 17:45; Stop 12/21/21 at 17:56; Status DC Furosemide (Lasix) 40 mg 1X ONCE IVP Last administered on 12/21/21at 20:22; Start 12/21/21 at 17:45; Stop 12/21/21 at 17:46; Status DC Acetaminophen (Tylenol) 650 mg PRN Q6HRS PRN PO MILD PAIN / TEMP > 100.3'F; Start 12/22/21 at 09:00 Cyanocobalamin (Vitamin B-12) 100 mcg DAILY PO ; Start 12/22/21 at 09:00 Digoxin (Lanoxin) 125 mcg DAILY PO ; Start 12/22/21 at 09:00 Gabapentin (Neurontin) 300 mg DAILY PO ; Start 12/22/21 at 09:00 Acetaminophen/ Hydrocodone Bitart (Lortab 7.5/325) 1 tab PRN Q6HRS PRN PO MODERATE TO SEVERE PAIN; Start 12/22/21 at 09:00 Albuterol/ Ipratropium (Duoneb) 3 ml RTQID NEB ; Start 12/22/21 at 09:00 Levothyroxine Sodium (Synthroid) 100 mcg DAILY06 PO ; Start 12/22/21 at 09:00 Magnesium Oxide (Magnesium Oxide) 400 mg TID PO ; Start 12/22/21 at 09:00 Montelukast Sodium (Singulair) 10 mg HS PO ; Start 12/22/21 at 21:00 Polyethylene Glycol (miraLAX PACKET) 17 gm DAILY PO ; Start 12/22/21 at 09:00 Senna/Docusate Sodium (Senna Plus) 2 tab DAILY PO ; Start 12/22/21 at 09:00 Tizanidine HCl (Zanaflex) 4 mg QHS PO ; Start 12/22/21 at 21:00 Pantoprazole Sodium (Protonix) 40 mg DAILYAC PO ; Start 12/22/21 at 09:00 Atorvastatin Calcium (Lipitor) 10 mg QHS PO ; Start 12/22/21 at 21:00 Furosemide (Lasix) 40 mg DAILY IVP ; Start 12/22/21 at 10:00 Ceftriaxone Sodium (Rocephin) 1 gm Q24H IVP ; Start 12/22/21 at 22:00 Active Scripts Active Sennosides-Docusate Sodium Tab (Sennosides/Docusate Sodium) 1 Each Tablet 2 Tab PO DAILY 30 Days Polyethylene Glycol 3350 17 Gm Powd.pack 17 Gm PO DAILY 10 Days Tylenol (Acetaminophen) 325 Mg Tablet 650 Mg PO PRN Q6HRS PRN 30 Days Hydrocodone-Apap 7.5-325 (Hydrocodone Bit/Acetaminophen) 1 Tab Tablet 1 Tab PO PRN Q6HRS PRN Reported Gabapentin 300 Mg Capsule 1 Cap PO DAILY Duoneb 0.5-3(2.5) Mg/3 Ml (Albuterol/Ipratropium) 3 Ml Ampul.neb 1 Vial NEB QID Proair Hfa Inhaler (Albuterol Sulfate) 8.5 Gm Hfa.aer.ad 2 Puff INH PRN Q4HRS PRN Tizanidine Hcl 4 Mg Tablet 1 Tab PO QHS Montelukast Sodium Tablet (Montelukast Sodium) 10 Mg Tablet 10 Mg PO HS Digoxin 125 Mcg Tablet 125 Mcg PO DAILY Cardizem Cd (Diltiazem Hcl) 180 Mg Cap.er.24h 120 Mg PO DAILY Mag-Oxide (Magnesium Oxide) 400 Mg Tablet 1 Tab PO TID Zocor (Simvastatin) 20 Mg Tablet 20 Mg PO HS Synthroid (Levothyroxine Sodium) 100 Mcg Tablet 100 Mcg PO DAILY06 Protonix Packet (Pantoprazole Sodium) 40 Mg Granpkt.dr 40 Mg PO DAILY08 Folic Acid 1 Mg Tablet 1 Mg PO DAILY Vitamin B-12 (Cyanocobalamin (Vitamin B-12)) 100 Mcg Tablet 100 Mcg PO DAILY Allergies Allergies: Coded Allergies: No Known Drug Allergies (Unverified , 08/19/13) ROS General: YES: Fatigue, Malaise Eyes: Yes Decreased vision HEENT: YES: Heacaches ALLERGY AND IMMUNOLOGY: YES: Seasonal Allergies Respiratory: YES: Cough Gastrointestinal: Yes Abdominal Pain Genitourinary: YES Hematuria Musculoskeletal: Yes Muscular Weakness Neurological: Yes Weakness Skin: Yes Dry Skin Physical Exam General: Alert, Cooperative, No acute distress HEENT: Atraumatic Lungs: Clear to auscultation Heart: Regular rate Abdomen: Normal bowel sounds Extremities: No clubbing Skin: No breakdown Neuro: Normal speech Psych/Mental Status: Mental status NL MUSCULOSKELETAL: No joint tenderness, No deformity Vitals VITALS Vital Signs Date Time Temp Pulse Resp B/P (MAP) Pulse Ox O2 Delivery O2 Flow Rate FiO2 12/22/21 07:00 98.1 87 14 135/54 (81) 99 Room Air 98.1 12/21/21 19:30 2.0 Labs Labs Laboratory Tests Test 12/21/21 14:28 12/21/21 15:02 12/21/21 17:37 12/21/21 20:00 White Blood Count 4.4 x10^3/uL (4.0-11.0) Red Blood Count 3.76 x10^6/uL (4.30-5.70) Hemoglobin 12.3 g/dL (13.0-17.5) Hematocrit 36.8 % (39.0-53.0) Mean Corpuscular Volume 98 fL (79-100) Mean Corpuscular Hemoglobin 33 pg (25-35) Mean Corpuscular Hemoglobin Concent 34 g/dL (31-37) Red Cell Distribution Width 16.2 % (11.5-14.5) Platelet Count 128 x10^3/uL (140-400) Neutrophils (%) (Auto) 75 % (31-73) Lymphocytes (%) (Auto) 10 % (24-48) Monocytes (%) (Auto) 8 % (0-9) Eosinophils (%) (Auto) 6 % (0-3) Basophils (%) (Auto) 1 % (0-3) Neutrophils # (Auto) 3.3 x10^3/uL (1.8-7.7) Lymphocytes # (Auto) 0.5 x10^3/uL (1.0-4.8) Monocytes # (Auto) 0.4 x10^3/uL (0.0-1.1) Eosinophils # (Auto) 0.3 x10^3/uL (0.0-0.7) Basophils # (Auto) 0.0 x10^3/uL (0.0-0.2) Sodium Level 133 mmol/L (136-145) Potassium Level 5.8 mmol/L (3.5-5.1) Chloride Level 96 mmol/L (98-107) Carbon Dioxide Level 29 mmol/L (21-32) Anion Gap 8 (6-14) Blood Urea Nitrogen 21 mg/dL (8-26) Creatinine 1.6 mg/dL (0.7-1.3) Estimated GFR (Cockcroft-Gault) 42.0 BUN/Creatinine Ratio 13 (6-20) Glucose Level 94 mg/dL (70-99) Calcium Level 9.1 mg/dL (8.5-10.1) Magnesium Level 2.1 mg/dL (1.8-2.4) Total Bilirubin 2.5 mg/dL (0.2-1.0) Aspartate Amino Transf (AST/SGOT) 53 U/L (15-37) Alanine Aminotransferase (ALT/SGPT) 20 U/L (16-63) Alkaline Phosphatase 271 U/L (46-116) Troponin I High Sensitivity 17 ng/L (4-75) 18 ng/L (4-75) 18 ng/L (4-75) GR-Oqz-N-Type Natriuretic Peptide 70255 pg/mL (0-449) Total Protein 6.7 g/dL (6.4-8.2) Albumin 3.0 g/dL (3.4-5.0) Albumin/Globulin Ratio 0.8 (1.0-1.7) Urine Collection Type Unknown Urine Color (Auto) Light yellow Urine Turbidity Clear Urine pH (Auto) 6.5 (<5.0-8.0) Urine Specific Baldwin 1.008 (1.000-1.030) Urine Protein (Auto) Negative mg/dL (Negative) Urine Glucose (Auto)(UA) Negative mg/dL (Negative) Urine Ketones (Auto) Negative mg/dL (Negative) Urine Blood (Auto) Large (Negative) Urine Nitrite Negative (Negative) Urine Bilirubin (Auto) Negative (Negative) Urine Urobilinogen (Auto) Normal mg/dL (Normal) Urine Leukocyte Esterase (Auto) Small (Negative) Urine RBC 20-40 /HPF (0-2) Urine WBC 20-40 /HPF (0-4) Urine Squamous Epithelial Cells Mod /LPF Urine Transitional Epithelial Cells Few /LPF Urine Bacteria 0 /HPF (0-FEW) Test 12/22/21 06:50 White Blood Count 5.4 x10^3/uL (4.0-11.0) Red Blood Count 3.98 x10^6/uL (4.30-5.70) Hemoglobin 13.4 g/dL (13.0-17.5) Hematocrit 39.6 % (39.0-53.0) Mean Corpuscular Volume 99 fL (79-100) Mean Corpuscular Hemoglobin 34 pg (25-35) Mean Corpuscular Hemoglobin Concent 34 g/dL (31-37) Red Cell Distribution Width 16.6 % (11.5-14.5) Platelet Count 95 x10^3/uL (140-400) Neutrophils (%) (Auto) 77 % (31-73) Lymphocytes (%) (Auto) 9 % (24-48) Monocytes (%) (Auto) 7 % (0-9) Eosinophils (%) (Auto) 7 % (0-3) Basophils (%) (Auto) 0 % (0-3) Neutrophils # (Auto) 4.2 x10^3/uL (1.8-7.7) Lymphocytes # (Auto) 0.5 x10^3/uL (1.0-4.8) Monocytes # (Auto) 0.4 x10^3/uL (0.0-1.1) Eosinophils # (Auto) 0.4 x10^3/uL (0.0-0.7) Basophils # (Auto) 0.0 x10^3/uL (0.0-0.2) Sodium Level 140 mmol/L (136-145) Potassium Level 3.8 mmol/L (3.5-5.1) Chloride Level 99 mmol/L (98-107) Carbon Dioxide Level 33 mmol/L (21-32) Anion Gap 8 (6-14) Blood Urea Nitrogen 18 mg/dL (8-26) Creatinine 1.6 mg/dL (0.7-1.3) Estimated GFR (Cockcroft-Gault) 42.0 BUN/Creatinine Ratio 11 (6-20) Glucose Level 91 mg/dL (70-99) Calcium Level 8.9 mg/dL (8.5-10.1) Total Bilirubin 1.3 mg/dL (0.2-1.0) Aspartate Amino Transf (AST/SGOT) 39 U/L (15-37) Alanine Aminotransferase (ALT/SGPT) 21 U/L (16-63) Alkaline Phosphatase 257 U/L (46-116) Total Protein 7.1 g/dL (6.4-8.2) Albumin 3.0 g/dL (3.4-5.0) Albumin/Globulin Ratio 0.7 (1.0-1.7) Laboratory Tests Test 12/21/21 14:28 12/21/21 15:02 12/21/21 17:37 12/21/21 20:00 White Blood Count 4.4 x10^3/uL (4.0-11.0) Red Blood Count 3.76 x10^6/uL (4.30-5.70) Hemoglobin 12.3 g/dL (13.0-17.5) Hematocrit 36.8 % (39.0-53.0) Mean Corpuscular Volume 98 fL (79-100) Mean Corpuscular Hemoglobin 33 pg (25-35) Mean Corpuscular Hemoglobin Concent 34 g/dL (31-37) Red Cell Distribution Width 16.2 % (11.5-14.5) Platelet Count 128 x10^3/uL (140-400) Neutrophils (%) (Auto) 75 % (31-73) Lymphocytes (%) (Auto) 10 % (24-48) Monocytes (%) (Auto) 8 % (0-9) Eosinophils (%) (Auto) 6 % (0-3) Basophils (%) (Auto) 1 % (0-3) Neutrophils # (Auto) 3.3 x10^3/uL (1.8-7.7) Lymphocytes # (Auto) 0.5 x10^3/uL (1.0-4.8) Monocytes # (Auto) 0.4 x10^3/uL (0.0-1.1) Eosinophils # (Auto) 0.3 x10^3/uL (0.0-0.7) Basophils # (Auto) 0.0 x10^3/uL (0.0-0.2) Sodium Level 133 mmol/L (136-145) Potassium Level 5.8 mmol/L (3.5-5.1) Chloride Level 96 mmol/L (98-107) Carbon Dioxide Level 29 mmol/L (21-32) Anion Gap 8 (6-14) Blood Urea Nitrogen 21 mg/dL (8-26) Creatinine 1.6 mg/dL (0.7-1.3) Estimated GFR (Cockcroft-Gault) 42.0 BUN/Creatinine Ratio 13 (6-20) Glucose Level 94 mg/dL (70-99) Calcium Level 9.1 mg/dL (8.5-10.1) Magnesium Level 2.1 mg/dL (1.8-2.4) Total Bilirubin 2.5 mg/dL (0.2-1.0) Aspartate Amino Transf (AST/SGOT) 53 U/L (15-37) Alanine Aminotransferase (ALT/SGPT) 20 U/L (16-63) Alkaline Phosphatase 271 U/L (46-116) Troponin I High Sensitivity 17 ng/L (4-75) 18 ng/L (4-75) 18 ng/L (4-75) TJ-Uhh-D-Type Natriuretic Peptide 96458 pg/mL (0-449) Total Protein 6.7 g/dL (6.4-8.2) Albumin 3.0 g/dL (3.4-5.0) Albumin/Globulin Ratio 0.8 (1.0-1.7) Urine Collection Type Unknown Urine Color (Auto) Light yellow Urine Turbidity Clear Urine pH (Auto) 6.5 (<5.0-8.0) Urine Specific Baldwin 1.008 (1.000-1.030) Urine Protein (Auto) Negative mg/dL (Negative) Urine Glucose (Auto)(UA) Negative mg/dL (Negative) Urine Ketones (Auto) Negative mg/dL (Negative) Urine Blood (Auto) Large (Negative) Urine Nitrite Negative (Negative) Urine Bilirubin (Auto) Negative (Negative) Urine Urobilinogen (Auto) Normal mg/dL (Normal) Urine Leukocyte Esterase (Auto) Small (Negative) Urine RBC 20-40 /HPF (0-2) Urine WBC 20-40 /HPF (0-4) Urine Squamous Epithelial Cells Mod /LPF Urine Transitional Epithelial Cells Few /LPF Urine Bacteria 0 /HPF (0-FEW) Test 12/22/21 06:50 White Blood Count 5.4 x10^3/uL (4.0-11.0) Red Blood Count 3.98 x10^6/uL (4.30-5.70) Hemoglobin 13.4 g/dL (13.0-17.5) Hematocrit 39.6 % (39.0-53.0) Mean Corpuscular Volume 99 fL (79-100) Mean Corpuscular Hemoglobin 34 pg (25-35) Mean Corpuscular Hemoglobin Concent 34 g/dL (31-37) Red Cell Distribution Width 16.6 % (11.5-14.5) Platelet Count 95 x10^3/uL (140-400) Neutrophils (%) (Auto) 77 % (31-73) Lymphocytes (%) (Auto) 9 % (24-48) Monocytes (%) (Auto) 7 % (0-9) Eosinophils (%) (Auto) 7 % (0-3) Basophils (%) (Auto) 0 % (0-3) Neutrophils # (Auto) 4.2 x10^3/uL (1.8-7.7) Lymphocytes # (Auto) 0.5 x10^3/uL (1.0-4.8) Monocytes # (Auto) 0.4 x10^3/uL (0.0-1.1) Eosinophils # (Auto) 0.4 x10^3/uL (0.0-0.7) Basophils # (Auto) 0.0 x10^3/uL (0.0-0.2) Sodium Level 140 mmol/L (136-145) Potassium Level 3.8 mmol/L (3.5-5.1) Chloride Level 99 mmol/L (98-107) Carbon Dioxide Level 33 mmol/L (21-32) Anion Gap 8 (6-14) Blood Urea Nitrogen 18 mg/dL (8-26) Creatinine 1.6 mg/dL (0.7-1.3) Estimated GFR (Cockcroft-Gault) 42.0 BUN/Creatinine Ratio 11 (6-20) Glucose Level 91 mg/dL (70-99) Calcium Level 8.9 mg/dL (8.5-10.1) Total Bilirubin 1.3 mg/dL (0.2-1.0) Aspartate Amino Transf (AST/SGOT) 39 U/L (15-37) Alanine Aminotransferase (ALT/SGPT) 21 U/L (16-63) Alkaline Phosphatase 257 U/L (46-116) Total Protein 7.1 g/dL (6.4-8.2) Albumin 3.0 g/dL (3.4-5.0) Albumin/Globulin Ratio 0.7 (1.0-1.7) Images Images PATIENT: DUNCAN VALDIVIA ACCOUNT: [id number] : 1945 LOCATION: ER AGE: 76 SEX: M EXAM STATUS: REG ER ORD. PHYSICIAN: SANDRA BAUMANN [employer] REASON: abd pain, hematuria PROCEDURE: CT ABDOMEN PELVIS WO CONTRAST Examination: CT of the abdomen pelvis without contrast HISTORY: History of abdominal pain, hematuria COMPARISON: 10/20/2020 TECHNIQUE: Axial CT images of the abdomen is performed without contrast. Coronal and sagittal reformats are performed Exposure: One or more of the following individualized dose reduction techniques were utilized for this examination: 1. Automated exposure control 2. Adjustment of the mA and/or kV according to patient size 3. Use of iterative reconstruction technique FINDINGS: Small right pleural effusion. Mild bibasilar lung atelectasis or infiltrates. No evidence of free air identified in the abdomen. The evaluation of the solid organs is limited due to lack of IV contrast. The evaluation of bowel is limited due to lack of oral contrast.. Mild decreased attenuation noted in the liver likely hepatic steatosis. The spleen, adrenals grossly appears unremarkable. Small amount of fluid identified in the right perihepatic and perisplenic region. The stomach is mildly distended. The visualized pancreas grossly appears unremarkable. Small bowel is nondilated Feces and gas noted in the colon. Mild stranding identified in the mesentery likely mesenteric edema secondary to ascites. Multiple sigmoid colon diverticulosis. Small amount of free fluid identified in the pelvis Multiple cystic structures identified in the bilateral kidneys the largest measuring 7.8 cm likely cysts. Severe degenerative changes thoracolumbar spine. Moderate compression change of the lumbar vertebral bodies throughout with kyphoplasty changes identified at T12, L1, L2 vertebral level. 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 IMPRESSION: 1. Small right pleural effusion with mild bibasilar lung atelectasis or infiltrates. 2. Small amount of free fluid identified in the abdomen and pelvis likely ascites. 3. Multiple cystic structures identified in the bilateral kidneys the largest measuring 7.8 cm likely cysts. 4. Multiple sigmoid colon diverticulosis. 5. Hepatic steatosis. 6. Moderate compression change of the lumbar vertebral bodies throughout with kyphoplasty changes identified at T12, L1, L2 vertebral level. Electronically signed by: Karl Fox MD (12/21/2021 2:33 PM) [id number] Assessment/Plan Assessment/Plan IMP HEMATURIA HYPERKALEMIA CKD STAGE 3B-CR STABLE IN THE 1.5-2.0 RANGE BILATERAL RENAL CYSTS-UNCHANGED FROM OCT 2020 HX HTN CAD-PCI/NASIM SSS-S/P PPM ANEMIA PLAN STABLE FROM RENAL STANDPOINT UROLOGY TO SEE FOR HEMATURIA CONT LASIX LABS IN AM WILL FOLLOW TAYLER DYER MD Dec 22, 2021 10:33
--- NOTE | 2021-12-22 10:45 | NUR ---
SW following. Discussed with RN, pt from home with , room air (using 2L PRN currently), cardiac diet, IV rocephin. Nephrology, Urology and Cardiology following. PT/OT ordered. Pt not yet ready for discharge. SW will continue to follow.
[2021-12-22 11:00] VITALS: BP 160/82
[2021-12-22] MEDS: PANTOPRAZOLE 40 MG TABLET.DR. PO SCH (11:21)
[2021-12-22] MEDS: FUROSEMIDE 40 MG/4 ML VIAL. IVP SCH (11:22)
[2021-12-22] MEDS: MAGNESIUM OXIDE 400 MG TABLET PO SCH ×3 (11:22→20:57)
[2021-12-22] MEDS: CYANOCOBALAMIN (VITAMIN B-12) 100 MCG TABLET. PO SCH (11:22)
[2021-12-22] MEDS: LEVOTHYROXINE 100 MCG TABLET PO SCH (11:22)
--- NOTE | 2021-12-22 13:54 | PDOC2 ---
UROLOGY CONSULT Date of Service DATE: 12/22/21 TIME: 13:48 Reason for Consult Reason for Consult: hematuria Identification/Chief Complaint Chief Complaint blood in urine History of Present Illness Reason for Visit: 76yo male inpatient for gross hematuria and possible CHF. Two days ago he noticed bright red blood in his urine. He endorses some slight dysuria at the time, but denies difficulty voiding or flank/abdominal pain. He states his urine is now yellow, no blood. Denies prior history of hematuria. No hx of kidney stones or recent trauma. He does at baseline endorse urinary urge incontinence, nocturia, and slow stream. He has not seen a urologist for this prior. Does not take any BPH meds. No pmh prostate surgery or prostate cancer. He did smoke in the past for 30 years. Past Medical History Cardiovascular: AFIB, CAD, CHF, HTN, Hyperlipidemia, Other Pulmonary: COPD CENTRAL NERVOUS SYSTEM: Other GI: GERD Heme/Onc: Anemia NOS Psych: No pertinent hx Musculoskeletal: Osteoarthritis Rheumatologic: No pertinent hx Infectious disease: No pertinent hx Renal/: Chronic renal insuff, Benign prostatic enlarg. Endocrine: Hypothyroidism Past Surgical History Past Surgical History: Pacemaker, Cholecystectomy, Other Family History Family History: Heart Disease Social History ALCOHOL: none Drugs: None Lives: with Family Current Medications Current Medications Current Medications Acetaminophen (Tylenol) 650 mg PRN Q4HRS PRN PO FEVER > 100.3'F; Start 12/21/21 at 17:45; Stop 12/22/21 at 17:44 Acetaminophen (Tylenol) 650 mg PRN Q6HRS PRN PO MILD PAIN / TEMP > 100.3'F; Start 12/22/21 at 09:00 Acetaminophen/ Hydrocodone Bitart (Lortab 7.5/325) 1 tab PRN Q6HRS PRN PO MODERATE TO SEVERE PAIN; Start 12/22/21 at 09:00 Albuterol/ Ipratropium (Duoneb) 3 ml RTQID NEB Last administered on 12/22/21at 12:12; Start 12/22/21 at 09:00 Atorvastatin Calcium (Lipitor) 10 mg QHS PO ; Start 12/22/21 at 21:00 Ceftriaxone Sodium (Rocephin) 1 gm 1X ONCE IVP Last administered on 12/21/21at 22:35; Start 12/21/21 at 16:00; Stop 12/21/21 at 16:01; Status DC Ceftriaxone Sodium (Rocephin) 1 gm Q24H IVP ; Start 12/22/21 at 22:00 Cyanocobalamin (Vitamin B-12) 100 mcg DAILY PO Last administered on 12/22/21 11:22; Start 12/22/21 at 09:00 Digoxin (Lanoxin) 125 mcg DAILY PO Last administered on 12/22/21 11:; Start 12/22/21 at 09:00 Furosemide (Lasix) 40 mg 1X ONCE IVP Last administered on 12/21/21at 20:22; Start 12/21/21 at 17:45; Stop 12/21/21 at 17:46; Status DC Furosemide (Lasix) 40 mg DAILY IVP Last administered on 12/22/21at :; Start 12/22/21 at 10:00 Gabapentin (Neurontin) 300 mg DAILY PO ; Start 12/22/21 at 09:00 Levothyroxine Sodium (Synthroid) 100 mcg DAILY06 PO Last administered on 12/22/21at :; Start 12/22/21 at 09:00 Magnesium Oxide (Magnesium Oxide) 400 mg TID PO Last administered on 12/22/21at 11:; Start 12/22/21 at 09:00 Montelukast Sodium (Singulair) 10 mg HS PO ; Start 12/22/21 at 21:00 Morphine Sulfate (Morphine Sulfate) 4 mg PRN Q2HR PRN IVP PAIN; Start 12/21/21 at 17:45; Stop 12/22/21 at 17:44 Ondansetron HCl (Zofran) 4 mg PRN Q8HRS PRN IVP NAUSEA/VOMITING; Start 12/21/21 at 17:45; Stop 12/22/21 at 17:44 Pantoprazole Sodium (Protonix) 40 mg DAILYAC PO Last administered on 12/22/21at 11:21; Start 12/22/21 at 09:00 Polyethylene Glycol (miraLAX PACKET) 17 gm DAILY PO ; Start 12/22/21 at 09:00 Senna/Docusate Sodium (Senna Plus) 2 tab DAILY PO ; Start 12/22/21 at 09:00 Sodium Polystyrene Sulfonate (Kayexalate) 30 gm 1X ONCE PO Last administered on 4/10/22at 20:22; Start 12/21/21 at 17:45; Stop 12/21/21 at 17:56; Status DC Tizanidine HCl (Zanaflex) 4 mg QHS PO ; Start 12/22/21 at 21:00 Allergies Allergies: Coded Allergies: No Known Drug Allergies (Unverified , 08/19/13) ROS Review Of Systems: CONSTITUTIONAL: No fever or chills EYES: No recent changes SKIN: No rash or itching CARDIOVASCULAR: No chest pain, syncope, palpitations, or edema RESPIRATORY: No SOB or cough GASTROINTESTINAL: No nausea, vomiting or abdominal pain NEUROLOGICAL: No headaches or weakness ENDOCRINE: No cold or heat intolerance GENITOURINARY: No urgency or frequency of urination MUSCULOSKELETAL: No back pain or joint pain LYMPHATICS: No enlarged lymph nodes PSYCHIATRIC: No anxiety or depression Physical Exam Physical Exam: General: Pleasant, no acute distress, well groomed Eyes: conjunctiva anicteric, eyes full range of motion ENT: moist oral mucosa, normal dentition Neck: Trachea midline, no masses Respiratory: unlabored breathing, not using accessory muscles, no crackles or wheezes Cardiovascular: Regular rate and rhythm, no peripheral edema Abdomen: nontender, nondistended, no hepatosplenomegaly, no masses Skin: no rashes or skin lesions on visualized skin Psych: normal mood, affect. Alert and oriented x 3. Vitals VITALS Vital Signs Date Time Temp Pulse Resp B/P (MAP) Pulse Ox O2 Delivery O2 Flow Rate FiO2 12/22/21 12:12 97 Room Air 12/22/21 11:22 87 135/54 12/22/21 11:00 97.7 14 97.7 12/22/21 08:00 2.0 Labs Labs Laboratory Tests Test 12/21/21 14:28 12/21/21 15:02 12/21/21 17:37 12/21/21 20:00 White Blood Count 4.4 x10^3/uL (4.0-11.0) Red Blood Count 3.76 x10^6/uL (4.30-5.70) Hemoglobin 12.3 g/dL (13.0-17.5) Hematocrit 36.8 % (39.0-53.0) Mean Corpuscular Volume 98 fL (79-100) Mean Corpuscular Hemoglobin 33 pg (25-35) Mean Corpuscular Hemoglobin Concent 34 g/dL (31-37) Red Cell Distribution Width 16.2 % (11.5-14.5) Platelet Count 128 x10^3/uL (140-400) Neutrophils (%) (Auto) 75 % (31-73) Lymphocytes (%) (Auto) 10 % (24-48) Monocytes (%) (Auto) 8 % (0-9) Eosinophils (%) (Auto) 6 % (0-3) Basophils (%) (Auto) 1 % (0-3) Neutrophils # (Auto) 3.3 x10^3/uL (1.8-7.7) Lymphocytes # (Auto) 0.5 x10^3/uL (1.0-4.8) Monocytes # (Auto) 0.4 x10^3/uL (0.0-1.1) Eosinophils # (Auto) 0.3 x10^3/uL (0.0-0.7) Basophils # (Auto) 0.0 x10^3/uL (0.0-0.2) Sodium Level 133 mmol/L (136-145) Potassium Level 5.8 mmol/L (3.5-5.1) Chloride Level 96 mmol/L (98-107) Carbon Dioxide Level 29 mmol/L (21-32) Anion Gap 8 (6-14) Blood Urea Nitrogen 21 mg/dL (8-26) Creatinine 1.6 mg/dL (0.7-1.3) Estimated GFR (Cockcroft-Gault) 42.0 BUN/Creatinine Ratio 13 (6-20) Glucose Level 94 mg/dL (70-99) Calcium Level 9.1 mg/dL (8.5-10.1) Magnesium Level 2.1 mg/dL (1.8-2.4) Total Bilirubin 2.5 mg/dL (0.2-1.0) Aspartate Amino Transf (AST/SGOT) 53 U/L (15-37) Alanine Aminotransferase (ALT/SGPT) 20 U/L (16-63) Alkaline Phosphatase 271 U/L (46-116) Troponin I High Sensitivity 17 ng/L (4-75) 18 ng/L (4-75) 18 ng/L (4-75) SO-Oxh-W-Type Natriuretic Peptide 38401 pg/mL (0-449) Total Protein 6.7 g/dL (6.4-8.2) Albumin 3.0 g/dL (3.4-5.0) Albumin/Globulin Ratio 0.8 (1.0-1.7) Urine Collection Type Unknown Urine Color (Auto) Light yellow Urine Turbidity Clear Urine pH (Auto) 6.5 (<5.0-8.0) Urine Specific [place] 1.008 (1.000-1.030) Urine Protein (Auto) Negative mg/dL (Negative) Urine Glucose (Auto)(UA) Negative mg/dL (Negative) Urine Ketones (Auto) Negative mg/dL (Negative) Urine Blood (Auto) Large (Negative) Urine Nitrite Negative (Negative) Urine Bilirubin (Auto) Negative (Negative) Urine Urobilinogen (Auto) Normal mg/dL (Normal) Urine Leukocyte Esterase (Auto) Small (Negative) Urine RBC 20-40 /HPF (0-2) Urine WBC 20-40 /HPF (0-4) Urine Squamous Epithelial Cells Mod /LPF Urine Transitional Epithelial Cells Few /LPF Urine Bacteria 0 /HPF (0-FEW) Test 12/22/21 06:50 White Blood Count 5.4 x10^3/uL (4.0-11.0) Red Blood Count 3.98 x10^6/uL (4.30-5.70) Hemoglobin 13.4 g/dL (13.0-17.5) Hematocrit 39.6 % (39.0-53.0) Mean Corpuscular Volume 99 fL (79-100) Mean Corpuscular Hemoglobin 34 pg (25-35) Mean Corpuscular Hemoglobin Concent 34 g/dL (31-37) Red Cell Distribution Width 16.6 % (11.5-14.5) Platelet Count 95 x10^3/uL (140-400) Neutrophils (%) (Auto) 77 % (31-73) Lymphocytes (%) (Auto) 9 % (24-48) Monocytes (%) (Auto) 7 % (0-9) Eosinophils (%) (Auto) 7 % (0-3) Basophils (%) (Auto) 0 % (0-3) Neutrophils # (Auto) 4.2 x10^3/uL (1.8-7.7) Lymphocytes # (Auto) 0.5 x10^3/uL (1.0-4.8) Monocytes # (Auto) 0.4 x10^3/uL (0.0-1.1) Eosinophils # (Auto) 0.4 x10^3/uL (0.0-0.7) Basophils # (Auto) 0.0 x10^3/uL (0.0-0.2) Sodium Level 140 mmol/L (136-145) Potassium Level 3.8 mmol/L (3.5-5.1) Chloride Level 99 mmol/L (98-107) Carbon Dioxide Level 33 mmol/L (21-32) Anion Gap 8 (6-14) Blood Urea Nitrogen 18 mg/dL (8-26) Creatinine 1.6 mg/dL (0.7-1.3) Estimated GFR (Cockcroft-Gault) 42.0 BUN/Creatinine Ratio 11 (6-20) Glucose Level 91 mg/dL (70-99) Calcium Level 8.9 mg/dL (8.5-10.1) Total Bilirubin 1.3 mg/dL (0.2-1.0) Aspartate Amino Transf (AST/SGOT) 39 U/L (15-37) Alanine Aminotransferase (ALT/SGPT) 21 U/L (16-63) Alkaline Phosphatase 257 U/L (46-116) Total Protein 7.1 g/dL (6.4-8.2) Albumin 3.0 g/dL (3.4-5.0) Albumin/Globulin Ratio 0.7 (1.0-1.7) Laboratory Tests Test 12/21/21 14:28 12/21/21 15:02 12/21/21 17:37 12/21/21 20:00 White Blood Count 4.4 x10^3/uL (4.0-11.0) Red Blood Count 3.76 x10^6/uL (4.30-5.70) Hemoglobin 12.3 g/dL (13.0-17.5) Hematocrit 36.8 % (39.0-53.0) Mean Corpuscular Volume 98 fL (79-100) Mean Corpuscular Hemoglobin 33 pg (25-35) Mean Corpuscular Hemoglobin Concent 34 g/dL (31-37) Red Cell Distribution Width 16.2 % (11.5-14.5) Platelet Count 128 x10^3/uL (140-400) Neutrophils (%) (Auto) 75 % (31-73) Lymphocytes (%) (Auto) 10 % (24-48) Monocytes (%) (Auto) 8 % (0-9) Eosinophils (%) (Auto) 6 % (0-3) Basophils (%) (Auto) 1 % (0-3) Neutrophils # (Auto) 3.3 x10^3/uL (1.8-7.7) Lymphocytes # (Auto) 0.5 x10^3/uL (1.0-4.8) Monocytes # (Auto) 0.4 x10^3/uL (0.0-1.1) Eosinophils # (Auto) 0.3 x10^3/uL (0.0-0.7) Basophils # (Auto) 0.0 x10^3/uL (0.0-0.2) Sodium Level 133 mmol/L (136-145) Potassium Level 5.8 mmol/L (3.5-5.1) Chloride Level 96 mmol/L (98-107) Carbon Dioxide Level 29 mmol/L (21-32) Anion Gap 8 (6-14) Blood Urea Nitrogen 21 mg/dL (8-26) Creatinine 1.6 mg/dL (0.7-1.3) Estimated GFR (Cockcroft-Gault) 42.0 BUN/Creatinine Ratio 13 (6-20) Glucose Level 94 mg/dL (70-99) Calcium Level 9.1 mg/dL (8.5-10.1) Magnesium Level 2.1 mg/dL (1.8-2.4) Total Bilirubin 2.5 mg/dL (0.2-1.0) Aspartate Amino Transf (AST/SGOT) 53 U/L (15-37) Alanine Aminotransferase (ALT/SGPT) 20 U/L (16-63) Alkaline Phosphatase 271 U/L (46-116) Troponin I High Sensitivity 17 ng/L (4-75) 18 ng/L (4-75) 18 ng/L (4-75) GS-Dmg-E-Type Natriuretic Peptide 41703 pg/mL (0-449) Total Protein 6.7 g/dL (6.4-8.2) Albumin 3.0 g/dL (3.4-5.0) Albumin/Globulin Ratio 0.8 (1.0-1.7) Urine Collection Type Unknown Urine Color (Auto) Light yellow Urine Turbidity Clear Urine pH (Auto) 6.5 (<5.0-8.0) Urine Specific [place] 1.008 (1.000-1.030) Urine Protein (Auto) Negative mg/dL (Negative) Urine Glucose (Auto)(UA) Negative mg/dL (Negative) Urine Ketones (Auto) Negative mg/dL (Negative) Urine Blood (Auto) Large (Negative) Urine Nitrite Negative (Negative) Urine Bilirubin (Auto) Negative (Negative) Urine Urobilinogen (Auto) Normal mg/dL (Normal) Urine Leukocyte Esterase (Auto) Small (Negative) Urine RBC 20-40 /HPF (0-2) Urine WBC 20-40 /HPF (0-4) Urine Squamous Epithelial Cells Mod /LPF Urine Transitional Epithelial Cells Few /LPF Urine Bacteria 0 /HPF (0-FEW) Test 12/22/21 06:50 White Blood Count 5.4 x10^3/uL (4.0-11.0) Red Blood Count 3.98 x10^6/uL (4.30-5.70) Hemoglobin 13.4 g/dL (13.0-17.5) Hematocrit 39.6 % (39.0-53.0) Mean Corpuscular Volume 99 fL (79-100) Mean Corpuscular Hemoglobin 34 pg (25-35) Mean Corpuscular Hemoglobin Concent 34 g/dL (31-37) Red Cell Distribution Width 16.6 % (11.5-14.5) Platelet Count 95 x10^3/uL (140-400) Neutrophils (%) (Auto) 77 % (31-73) Lymphocytes (%) (Auto) 9 % (24-48) Monocytes (%) (Auto) 7 % (0-9) Eosinophils (%) (Auto) 7 % (0-3) Basophils (%) (Auto) 0 % (0-3) Neutrophils # (Auto) 4.2 x10^3/uL (1.8-7.7) Lymphocytes # (Auto) 0.5 x10^3/uL (1.0-4.8) Monocytes # (Auto) 0.4 x10^3/uL (0.0-1.1) Eosinophils # (Auto) 0.4 x10^3/uL (0.0-0.7) Basophils # (Auto) 0.0 x10^3/uL (0.0-0.2) Sodium Level 140 mmol/L (136-145) Potassium Level 3.8 mmol/L (3.5-5.1) Chloride Level 99 mmol/L (98-107) Carbon Dioxide Level 33 mmol/L (21-32) Anion Gap 8 (6-14) Blood Urea Nitrogen 18 mg/dL (8-26) Creatinine 1.6 mg/dL (0.7-1.3) Estimated GFR (Cockcroft-Gault) 42.0 BUN/Creatinine Ratio 11 (6-20) Glucose Level 91 mg/dL (70-99) Calcium Level 8.9 mg/dL (8.5-10.1) Total Bilirubin 1.3 mg/dL (0.2-1.0) Aspartate Amino Transf (AST/SGOT) 39 U/L (15-37) Alanine Aminotransferase (ALT/SGPT) 21 U/L (16-63) Alkaline Phosphatase 257 U/L (46-116) Total Protein 7.1 g/dL (6.4-8.2) Albumin 3.0 g/dL (3.4-5.0) Albumin/Globulin Ratio 0.7 (1.0-1.7) Images Images FINDINGS: Small right pleural effusion. Mild bibasilar lung atelectasis or infiltrates. No evidence of free air identified in the abdomen. The evaluation of the solid organs is limited due to lack of IV contrast. The evaluation of bowel is limited due to lack of oral contrast.. Mild decreased attenuation noted in the liver likely hepatic steatosis. The spleen, adrenals grossly appears unremarkable. Small amount of fluid identified in the right perihepatic and perisplenic region. The stomach is mildly distended. The visualized pancreas grossly appears unremarkable. Small bowel is nondilated Feces and gas noted in the colon. Mild stranding identified in the mesentery likely mesenteric edema secondary to ascites. Multiple sigmoid colon diverticulosis. Small amount of free fluid identified in the pelvis Multiple cystic structures identified in the bilateral kidneys the largest measuring 7.8 cm likely cysts. Severe degenerative changes thoracolumbar spine. Moderate compression change of the lumbar vertebral bodies throughout with kyp hoplasty changes identified at T12, L1, L2 vertebral level. 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 IMPRESSION: 1. Small right pleural effusion with mild bibasilar lung atelectasis or infiltrates. 2. Small amount of free fluid identified in the abdomen and pelvis likely ascites. 3. Multiple cystic structures identified in the bilateral kidneys the largest measuring 7.8 cm likely cysts. 4. Multiple sigmoid colon diverticulosis. 5. Hepatic steatosis. 6. Moderate compression change of the lumbar vertebral bodies throughout with kyphoplasty changes identified at T12, L1, L2 vertebral level. Electronically signed by: Karl Fox MD (12/21/2021 2:33 PM) [id number] Assessment/Plan Assessment/Plan Gross Hematuria Now resolved CT a/p shows no acute or evidence of malignancy or obstruction Check PVR, he has chronic obstructive BPH symptoms. Recommend cystoscopy outpatient to eval lower tract. BPH, malignancy, etc discussed as possible causes of hematuria. Clear from urology standpoint. Will arrange f/u. Please call with questions. EVIE RODGERS Dec 22, 2021 13:54
[2021-12-22] MEDS ORDERED: CLOP75TA PO (14:31)
[2021-12-22] MEDS ORDERED: GABA300C18 PO (14:31)
[2021-12-22] MEDS ORDERED: DIGO125T3 PO (14:31)
[2021-12-22 15:00] VITALS: BP 148/75
[2021-12-22 19:00] VITALS: BP 162/81
--- NOTE | 2021-12-22 20:55 | CONS ---
DATE OF CONSULTATION: 12/22/2021 ATTENDING PHYSICIAN: Hayden Proctor MD REASON FOR CONSULTATION: The patient is seen in pulmonary consultation at the request of Dr. Proctor for abnormal x-ray. HISTORY OF PRESENT ILLNESS: The patient is a 76-year-old that presented to the Emergency Department mainly with shortness of breath, urinary frequency, and some hematuria. The patient was admitted. He is currently being worked up for the above. He had a chest x-ray, which revealed right upper lobe hemidiaphragm elevation with some atelectasis. I was asked to see him in consultation. The patient complains of being short of breath with minimal exertion and cough, mostly nonproductive. He quit tobacco in 1975. Smoked for approximately 30 years. PAST MEDICAL HISTORY: Remarkable for COPD, tobacco dependence in remission, chronic AFib, coronary artery disease with previous stent placement. There is a history of hypertension, hyperlipidemia, esophagitis. PAST SURGICAL HISTORY: He has had previous repair of the fracture of the left femur, pacemaker implantation in 2012. ALLERGIES: No known drug allergies. FAMILY HISTORY: Brother with coronary artery disease. Father had congestive heart failure. SOCIAL HISTORY: He is currently not smoking. Lives with his . REVIEW OF SYSTEMS: As indicated above, otherwise a 10-point system was reviewed and negative. CURRENT MEDICATIONS: List was reviewed. PHYSICAL EXAMINATION: VITAL SIGNS: Stable. O2 saturation greater than 92%, currently on 2 liters. HEENT: Eyes: The sclerae were nonicteric. NECK: Jugular venous distention was not elevated. No lymphadenopathy. CHEST: Full expansion. LUNGS: Adequate flow with no wheezes. CARDIOVASCULAR: Regular rate and rhythm with S1, S2. No S3. ABDOMEN: Soft. EXTREMITIES: No clubbing, cyanosis or edema. LABORATORY DATA: Reviewed. White count was normal, hemoglobin and hematocrit were noted. BUN was noted. Creatinine was 1.6. IMPRESSION: 1. Progressive dyspnea, multifactorial secondary to elevation of right hemidiaphragm with atelectasis, acute on chronic systolic heart failure. 2. Acute on chronic systolic heart failure. 3. Acute exacerbation of chronic obstructive pulmonary disease. 4. Hematuria. 5. Chronic kidney disease. 6. Coronary artery disease with previous stent placement. 7. Gout. 8. Hyperlipidemia. PLAN: 1. Continue to diurese. 2. Avoid caffeinated beverages and eating close to bedtime. 3. Follow Nephrology input. 4. Urology has been consulted. I do appreciate the privilege in sharing in the patient's care. SOSA/JENNY DR: Lety TID: [id number]
[2021-12-22] MEDS: ATORVASTATIN CALCIUM 40 MG TABLET. PO SCH (20:57)
[2021-12-22] MEDS: cefTRIAXone IV Push 1 GM VIAL. IVP SCH (20:57)
[2021-12-22] MEDS: tiZANidine 4 MG TABLET. PO SCH (20:57)
[2021-12-22] MEDS: MONTELUKAST SODIUM 10 MG TABLET. PO SCH (20:57)
[2021-12-22] MEDS ORDERED: ATORVASTATIN CALCIUM 10 MG TABLET. PO SCH (21:00)
[2021-12-22 23:00] VITALS: BP 143/88
[2021-12-23 03:00] VITALS: BP 107/51
[2021-12-23 05:21] LABS: CALCIUM 8.2 mg/dL (8.5-10.1); CREATININE 1.7 mg/dL (0.7-1.3); GFR 39.2; POTASSIUM 3.4 mmol/L (3.5-5.1)
[2021-12-23] MEDS: LEVOTHYROXINE 100 MCG TABLET PO SCH (05:42)
[2021-12-23] MEDS: PANTOPRAZOLE 40 MG TABLET.DR. PO SCH (05:44)
[2021-12-23 07:00] VITALS: BP 105/52
[2021-12-23 07:14] LABS: BASO % 1 % (0-3); EOS # 0.3 x10^3/uL (0.0-0.7); EOS % 11 % (0-3); HEMATOCRIT 31.9 % (39.0-53.0); HEMOGLOBIN 10.5 g/dL (13.0-17.5); LYMPH # 0.8 x10^3/uL (1.0-4.8); LYMPH % 28 % (24-48); MEAN CORPUSCULAR HEMOGLOBIN 33 pg (25-35); MEAN CORPUSCULAR HGB CONC 33 g/dL (31-37); MEAN CORPUSCULAR VOLUME 100 fL (79-100); MONO # 0.3 x10^3/uL (0.0-1.1); MONO % 11 % (0-9); NEUT # 1.4 x10^3/uL (1.8-7.7); NEUT % 49 % (31-73); PLATELET COUNT 74 x10^3/uL (140-400); RED BLOOD COUNT 3.21 x10^6/uL (4.30-5.70); RED CELL DISTRIBUTION WIDTH 16.2 % (11.5-14.5); WHITE BLOOD COUNT 2.9 x10^3/uL (4.0-11.0)
[2021-12-23] MEDS: IPRATRPIUM/ALBUTEROL 0.5/2.5MG 3 ML NEBU. NEB SCH ×4 (07:30→20:35)
[2021-12-23] MEDS: FUROSEMIDE 40 MG/4 ML VIAL. IVP SCH (08:27)
[2021-12-23] MEDS: ASPIRIN ENTERIC COATED 81 MG TABLET.DR. PO SCH (08:28)
[2021-12-23] MEDS: POLYETHYLENE GLYCOL 3350 17 GM PACKET. PO SCH (08:28)
[2021-12-23] MEDS: CYANOCOBALAMIN (VITAMIN B-12) 100 MCG TABLET. PO SCH (08:28)
[2021-12-23] MEDS: GABAPENTIN 300 MG CAPSULE. PO SCH (08:28)
[2021-12-23] MEDS: MAGNESIUM OXIDE 400 MG TABLET PO SCH ×3 (08:28→21:03)
[2021-12-23] MEDS: SENNOSIDES/DOCUSATE 8.6/50MG TABLET. PO SCH (08:29)
--- NOTE | 2021-12-23 09:27 | PDOC ---
IM PROGRESS NOTES- Subjective Subjective Complaints of wheezing. Hematuria is better. No complaints of abdominal pain. Objective Vitals/I&O Vital Signs Date Time Temp Pulse Resp B/P (MAP) Pulse Ox O2 Delivery O2 Flow Rate FiO2 12/23/21 08:28 75 105/52 12/23/21 07:31 95 Room Air 12/23/21 07:00 97.8 18 97.8 12/22/21 08:00 2.0 I & O 12/22/21 12/22/21 12/23/21 15:00 23:00 07:00 Intake Total 170 ml Balance 170 ml Physical Exam Physical Exam General Appearance - alert and in mild distress Chest - decreased breath sounds at bases, bilateral wheezing Heart - S1 and S2 normal Abdomen - soft, non tender Neurological - alert and oriented Musculoskeletal - generalized weakness Extremities -2+ edema Labs Laboratory Tests Test 12/23/21 03:40 12/23/21 06:35 Sodium Level 139 mmol/L (136-145) Potassium Level 3.4 mmol/L (3.5-5.1) L Chloride Level 101 mmol/L (98-107) Carbon Dioxide Level 33 mmol/L (21-32) H Anion Gap 5 (6-14) L Blood Urea Nitrogen 17 mg/dL (8-26) Creatinine 1.7 mg/dL (0.7-1.3) H Estimated GFR (Cockcroft-Gault) 39.2 Glucose Level 107 mg/dL (70-99) H Calcium Level 8.2 mg/dL (8.5-10.1) L White Blood Count 2.9 x10^3/uL (4.0-11.0) L Red Blood Count 3.21 x10^6/uL (4.30-5.70) L Hemoglobin 10.5 g/dL (13.0-17.5) L Hematocrit 31.9 % (39.0-53.0) L Mean Corpuscular Volume 100 fL (79-100) Mean Corpuscular Hemoglobin 33 pg (25-35) Mean Corpuscular Hemoglobin Concent 33 g/dL (31-37) Red Cell Distribution Width 16.2 % (11.5-14.5) H Platelet Count 74 x10^3/uL (140-400) L Neutrophils (%) (Auto) 49 % (31-73) Lymphocytes (%) (Auto) 28 % (24-48) Monocytes (%) (Auto) 11 % (0-9) H Eosinophils (%) (Auto) 11 % (0-3) H Basophils (%) (Auto) 1 % (0-3) Neutrophils # (Auto) 1.4 x10^3/uL (1.8-7.7) L Lymphocytes # (Auto) 0.8 x10^3/uL (1.0-4.8) L Monocytes # (Auto) 0.3 x10^3/uL (0.0-1.1) Eosinophils # (Auto) 0.3 x10^3/uL (0.0-0.7) Basophils # (Auto) 0.0 x10^3/uL (0.0-0.2) Laboratory Tests 12/23/21 06:35 Laboratory Tests 12/23/21 03:40 Meds Current Medications Medications (Trade) Dose Ordered Sig/Juanita Route PRN Reason Start Time Stop Time Status Last Admin Dose Admin Montelukast Sodium (Singulair) 10 mg HS PO 12/22/21 21:00 12/22/21 20:57 Tizanidine HCl (Zanaflex) 4 mg QHS PO 12/22/21 21:00 12/22/21 20:57 Furosemide (Lasix) 40 mg DAILY IVP 12/22/21 10:00 12/23/21 08:27 Ceftriaxone Sodium (Rocephin) 1 gm Q24H IVP 12/22/21 22:00 12/22/21 20:57 Diltiazem HCl (Cardizem 24hr Cd) 120 mg DAILY PO 12/22/21 16:00 12/23/21 08:28 Atorvastatin Calcium (Lipitor) 40 mg QHS PO 12/22/21 21:00 12/22/21 20:57 Aspirin (Ecotrin) 81 mg DAILYWBKFT PO 12/23/21 08:00 12/23/21 08:28 Assessment Assessment 1. Acute on chronic systolic congestive heart failure. 2. Exacerbation of chronic obstructive pulmonary disease. 3. Hematuria. 4. Chronic kidney disease. 5. Acute on chronic respiratory failure. 6. Urinary tract infection. 7. Chronic atrial fibrillation. 8. Low back pain. 9. Coronary artery disease with history of right coronary artery stent placement. 10. Gout. 11. Hyperlipidemia. 12. Hypertension. 13. Obesity. 14. 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 15. Diverticulosis. 16. Renal cyst. 17. History of alcoholism. 18. Physical deconditioning. 19. Osteoarthritis. PLAN: 1. Acute on chronic systolic congestive heart failure. IV Lasix. Consult Dr. Villalta for cardiology evaluation and management. Atrial fibrillation. Continue aspirin as tolerated. Not a candidate for DOAC due to recurrent hematuria. Patient has declined watchman device/left atrial appendage occlusion previously. 2. Hematuria. Monitor. The patient is not on any anticoagulation. I will also not start him on any DVT prophylaxis. We will use SCDs for DVT prophylaxis. Consult Dr. Alfredo for Urology evaluation and management. Urologist has recommended outpatient cystoscopy. 3. Chronic kidney disease and fluid retention. Consult Dr. Segal for nephrology evaluation and management. 4. Possible UTI. Start IV Rocephin. 5. Exacerbation of chronic obstructive pulmonary disease. Consult Dr. Garibay for pulmonary evaluation and management. Start breathing treatment. May need to give steroids if no improvement. 6. Osteoarthritis. Continue hydrocodone. Plan Plan For more details regarding further plans, please refer to the orders. Justifications for Admission Other Justification PATTY FALK MD Dec 23, 2021 09:27
--- NOTE | 2021-12-23 09:40 | PN ---
PROGRESS NOTES Date of Service DATE: 12/23/21 TIME: 09:38 Subjective Subjective Pt denies hematuria or any pain Objective Objective Vital Signs Date Time Temp Pulse Resp B/P (MAP) Pulse Ox O2 Delivery O2 Flow Rate FiO2 12/23/21 08:28 75 105/52 12/23/21 07:31 95 Room Air 12/23/21 07:00 97.8 18 97.8 12/22/21 08:00 2.0 Intake and Output 12/23/21 07:00 Intake Total 170 ml Balance 170 ml Intake Oral 170 ml # Voids 1 Physical Exam Physical Exam NAD no labored respirations abd nontender, nondistended Diagnosis PROBLEM LIST Problems Medical Problems: (1) Acute on chronic renal failure Status: Acute (2) Congestive heart failure Status: Acute (3) Hematuria Status: Acute (4) Urinary tract infection Status: Acute Assessment Assessment Problems Medical Problems: (1) Acute on chronic renal failure Status: Acute (2) Congestive heart failure Status: Acute (3) Hematuria Status: Acute (4) Urinary tract infection Status: Acute Plan Plan of Care Hematuria resolved PVR 20mL Cystoscopy outpatient as discussed previously, will arrange in clinic Ok with d/c per hospitalist Comment Review of Relevant I have reviewed the following items priya (where applicable) has been applied. Labs Laboratory Tests Test 12/21/21 14:28 12/21/21 15:02 12/21/21 17:37 12/21/21 20:00 White Blood Count 4.4 x10^3/uL (4.0-11.0) Red Blood Count 3.76 x10^6/uL (4.30-5.70) Hemoglobin 12.3 g/dL (13.0-17.5) Hematocrit 36.8 % (39.0-53.0) Mean Corpuscular Volume 98 fL (79-100) Mean Corpuscular Hemoglobin 33 pg (25-35) Mean Corpuscular Hemoglobin Concent 34 g/dL (31-37) Red Cell Distribution Width 16.2 % (11.5-14.5) Platelet Count 128 x10^3/uL (140-400) Neutrophils (%) (Auto) 75 % (31-73) Lymphocytes (%) (Auto) 10 % (24-48) Monocytes (%) (Auto) 8 % (0-9) Eosinophils (%) (Auto) 6 % (0-3) Basophils (%) (Auto) 1 % (0-3) Neutrophils # (Auto) 3.3 x10^3/uL (1.8-7.7) Lymphocytes # (Auto) 0.5 x10^3/uL (1.0-4.8) Monocytes # (Auto) 0.4 x10^3/uL (0.0-1.1) Eosinophils # (Auto) 0.3 x10^3/uL (0.0-0.7) Basophils # (Auto) 0.0 x10^3/uL (0.0-0.2) Sodium Level 133 mmol/L (136-145) Potassium Level 5.8 mmol/L (3.5-5.1) Chloride Level 96 mmol/L (98-107) Carbon Dioxide Level 29 mmol/L (21-32) Anion Gap 8 (6-14) Blood Urea Nitrogen 21 mg/dL (8-26) Creatinine 1.6 mg/dL (0.7-1.3) Estimated GFR (Cockcroft-Gault) 42.0 BUN/Creatinine Ratio 13 (6-20) Glucose Level 94 mg/dL (70-99) Calcium Level 9.1 mg/dL (8.5-10.1) Magnesium Level 2.1 mg/dL (1.8-2.4) Total Bilirubin 2.5 mg/dL (0.2-1.0) Aspartate Amino Transf (AST/SGOT) 53 U/L (15-37) Alanine Aminotransferase (ALT/SGPT) 20 U/L (16-63) Alkaline Phosphatase 271 U/L (46-116) Troponin I High Sensitivity 17 ng/L (4-75) 18 ng/L (4-75) 18 ng/L (4-75) GZ-Wdy-Z-Type Natriuretic Peptide 28951 pg/mL (0-449) Total Protein 6.7 g/dL (6.4-8.2) Albumin 3.0 g/dL (3.4-5.0) Albumin/Globulin Ratio 0.8 (1.0-1.7) Urine Collection Type Unknown Urine Color (Auto) Light yellow Urine Turbidity Clear Urine pH (Auto) 6.5 (<5.0-8.0) Urine Specific [place] 1.008 (1.000-1.030) Urine Protein (Auto) Negative mg/dL (Negative) Urine Glucose (Auto)(UA) Negative mg/dL (Negative) Urine Ketones (Auto) Negative mg/dL (Negative) Urine Blood (Auto) Large (Negative) Urine Nitrite Negative (Negative) Urine Bilirubin (Auto) Negative (Negative) Urine Urobilinogen (Auto) Normal mg/dL (Normal) Urine Leukocyte Esterase (Auto) Small (Negative) Urine RBC 20-40 /HPF (0-2) Urine WBC 20-40 /HPF (0-4) Urine Squamous Epithelial Cells Mod /LPF Urine Transitional Epithelial Cells Few /LPF Urine Bacteria 0 /HPF (0-FEW) Test 12/22/21 06:50 12/23/21 03:40 12/23/21 06:35 White Blood Count 5.4 x10^3/uL (4.0-11.0) 2.9 x10^3/uL (4.0-11.0) Red Blood Count 3.98 x10^6/uL (4.30-5.70) 3.21 x10^6/uL (4.30-5.70) Hemoglobin 13.4 g/dL (13.0-17.5) 10.5 g/dL (13.0-17.5) Hematocrit 39.6 % (39.0-53.0) 31.9 % (39.0-53.0) Mean Corpuscular Volume 99 fL (79-100) 100 fL (79-100) Mean Corpuscular Hemoglobin 34 pg (25-35) 33 pg (25-35) Mean Corpuscular Hemoglobin Concent 34 g/dL (31-37) 33 g/dL (31-37) Red Cell Distribution Width 16.6 % (11.5-14.5) 16.2 % (11.5-14.5) Platelet Count 95 x10^3/uL (140-400) 74 x10^3/uL (140-400) Neutrophils (%) (Auto) 77 % (31-73) 49 % (31-73) Lymphocytes (%) (Auto) 9 % (24-48) 28 % (24-48) Monocytes (%) (Auto) 7 % (0-9) 11 % (0-9) Eosinophils (%) (Auto) 7 % (0-3) 11 % (0-3) Basophils (%) (Auto) 0 % (0-3) 1 % (0-3) Neutrophils # (Auto) 4.2 x10^3/uL (1.8-7.7) 1.4 x10^3/uL (1.8-7.7) Lymphocytes # (Auto) 0.5 x10^3/uL (1.0-4.8) 0.8 x10^3/uL (1.0-4.8) Monocytes # (Auto) 0.4 x10^3/uL (0.0-1.1) 0.3 x10^3/uL (0.0-1.1) Eosinophils # (Auto) 0.4 x10^3/uL (0.0-0.7) 0.3 x10^3/uL (0.0-0.7) Basophils # (Auto) 0.0 x10^3/uL (0.0-0.2) 0.0 x10^3/uL (0.0-0.2) Sodium Level 140 mmol/L (136-145) 139 mmol/L (136-145) Potassium Level 3.8 mmol/L (3.5-5.1) 3.4 mmol/L (3.5-5.1) Chloride Level 99 mmol/L (98-107) 101 mmol/L (98-107) Carbon Dioxide Level 33 mmol/L (21-32) 33 mmol/L (21-32) Anion Gap 8 (6-14) 5 (6-14) Blood Urea Nitrogen 18 mg/dL (8-26) 17 mg/dL (8-26) Creatinine 1.6 mg/dL (0.7-1.3) 1.7 mg/dL (0.7-1.3) Estimated GFR (Cockcroft-Gault) 42.0 39.2 BUN/Creatinine Ratio 11 (6-20) Glucose Level 91 mg/dL (70-99) 107 mg/dL (70-99) Calcium Level 8.9 mg/dL (8.5-10.1) 8.2 mg/dL (8.5-10.1) Total Bilirubin 1.3 mg/dL (0.2-1.0) Aspartate Amino Transf (AST/SGOT) 39 U/L (15-37) Alanine Aminotransferase (ALT/SGPT) 21 U/L (16-63) Alkaline Phosphatase 257 U/L (46-116) Total Protein 7.1 g/dL (6.4-8.2) Albumin 3.0 g/dL (3.4-5.0) Albumin/Globulin Ratio 0.7 (1.0-1.7) Digoxin Level 1.0 ng/mL (0.9-2.0) Digoxin Last Dose Date 12/22/21 Digoxin Last Dose Time 1122 Laboratory Tests Test 12/23/21 03:40 12/23/21 06:35 Sodium Level 139 mmol/L (136-145) Potassium Level 3.4 mmol/L (3.5-5.1) Chloride Level 101 mmol/L (98-107) Carbon Dioxide Level 33 mmol/L (21-32) Anion Gap 5 (6-14) Blood Urea Nitrogen 17 mg/dL (8-26) Creatinine 1.7 mg/dL (0.7-1.3) Estimated GFR (Cockcroft-Gault) 39.2 Glucose Level 107 mg/dL (70-99) Calcium Level 8.2 mg/dL (8.5-10.1) White Blood Count 2.9 x10^3/uL (4.0-11.0) Red Blood Count 3.21 x10^6/uL (4.30-5.70) Hemoglobin 10.5 g/dL (13.0-17.5) Hematocrit 31.9 % (39.0-53.0) Mean Corpuscular Volume 100 fL (79-100) Mean Corpuscular Hemoglobin 33 pg (25-35) Mean Corpuscular Hemoglobin Concent 33 g/dL (31-37) Red Cell Distribution Width 16.2 % (11.5-14.5) Platelet Count 74 x10^3/uL (140-400) Neutrophils (%) (Auto) 49 % (31-73) Lymphocytes (%) (Auto) 28 % (24-48) Monocytes (%) (Auto) 11 % (0-9) Eosinophils (%) (Auto) 11 % (0-3) Basophils (%) (Auto) 1 % (0-3) Neutrophils # (Auto) 1.4 x10^3/uL (1.8-7.7) Lymphocytes # (Auto) 0.8 x10^3/uL (1.0-4.8) Monocytes # (Auto) 0.3 x10^3/uL (0.0-1.1) Eosinophils # (Auto) 0.3 x10^3/uL (0.0-0.7) Basophils # (Auto) 0.0 x10^3/uL (0.0-0.2) Medications Current Medications Morphine Sulfate (Morphine Sulfate) 4 mg PRN Q15MIN PRN IV/SQ PAIN GREATER THAN 3/10 Last administered on 12/21/21at 14:27; Start 12/21/21 at 13:30; Stop 12/22/21 at 13:29; Status DC Ceftriaxone Sodium (Rocephin) 1 gm 1X ONCE IVP Last administered on 12/21/21at 22:35; Start 12/21/21 at 16:00; Stop 12/21/21 at 16:01; Status DC Ondansetron HCl (Zofran) 4 mg PRN Q8HRS PRN IVP NAUSEA/VOMITING; Start 12/21/21 at 17:45; Stop 12/22/21 at 17:44; Status DC Morphine Sulfate (Morphine Sulfate) 4 mg PRN Q2HR PRN IVP PAIN; Start 12/21/21 at 17:45; Stop 12/22/21 at 17:44; Status DC Acetaminophen (Tylenol) 650 mg PRN Q4HRS PRN PO FEVER > 100.3'F; Start 12/21/21 at 17:45; Stop 12/22/21 at 15:11; Status DC Sodium Polystyrene Sulfonate (Kayexalate) 30 gm 1X ONCE PO Last administered on 12/21/21at 20:22; Start 12/21/21 at 17:45; Stop 12/21/21 at 17:56; Status DC Furosemide (Lasix) 40 mg 1X ONCE IVP Last administered on 12/21/21at 20:22; Start 12/21/21 at 17:45; Stop 12/21/21 at 17:46; Status DC Acetaminophen (Tylenol) 650 mg PRN Q6HRS PRN PO MILD PAIN / TEMP > 100.3'F; Start 12/22/21 at 09:00 Cyanocobalamin (Vitamin B-12) 100 mcg DAILY PO Last administered on 12/23/21 08:28; Start 12/22/21 at 09:00 Digoxin (Lanoxin) 125 mcg DAILY PO Last administered on 12/22/21 11:22; Start 12/22/21 at 09:00; Stop 12/22/21 at 16:32; Status DC Gabapentin (Neurontin) 300 mg DAILY PO Last administered on 12/23/21 08:28; Start 12/22/21 at 09:00 Acetaminophen/ Hydrocodone Bitart (Lortab 7.5/325) 1 tab PRN Q6HRS PRN PO MODERATE TO SEVERE PAIN; Start 12/22/21 at 09:00 Albuterol/ Ipratropium (Duoneb) 3 ml RTQID NEB Last administered on 12/23/21 07:30; Start 12/22/21 at 09:00 Levothyroxine Sodium (Synthroid) 100 mcg DAILY06 PO Last administered on 12/23/21 05:42; Start 12/22/21 at 09:00 Magnesium Oxide (Magnesium Oxide) 400 mg TID PO Last administered on 12/23/21 08:28; Start 12/22/21 at 09:00 Montelukast Sodium (Singulair) 10 mg HS PO Last administered on 12/22/21 20:57; Start 12/22/21 at 21:00 Polyethylene Glycol (miraLAX PACKET) 17 gm DAILY PO ; Start 12/22/21 at 09:00 Senna/Docusate Sodium (Senna Plus) 2 tab DAILY PO ; Start 12/22/21 at 09:00 Tizanidine HCl (Zanaflex) 4 mg QHS PO Last administered on 12/22/21 20:57; Start 12/22/21 at 21:00 Pantoprazole Sodium (Protonix) 40 mg DAILYAC PO Last administered on 12/23/21at 05:44; Start 12/22/21 at 09:00 Atorvastatin Calcium (Lipitor) 10 mg QHS PO ; Start 12/22/21 at 21:00; Stop 12/22/21 at 15:46; Status DC Furosemide (Lasix) 40 mg DAILY IVP Last administered on 12/23/21at 08:27; Start 12/22/21 at 10:00 Ceftriaxone Sodium (Rocephin) 1 gm Q24H IVP Last administered on 12/22/21at 20:57; Start 12/22/21 at 22:00 Diltiazem HCl (Cardizem 24hr Cd) 120 mg DAILY PO Last administered on 12/23/21at 08:28; Start 12/22/21 at 16:00 Atorvastatin Calcium (Lipitor) 40 mg QHS PO Last administered on 12/22/21at 20:57; Start 12/22/21 at 21:00 Aspirin (Ecotrin) 81 mg DAILYWBKFT PO Last administered on 12/23/21at 08:28; Start 12/23/21 at 08:00 Digoxin (Lanoxin) 125 mcg QODAY PO ; Start 12/24/21 at 09:00 Active Scripts Active Sennosides-Docusate Sodium Tab (Sennosides/Docusate Sodium) 1 Each Tablet 2 Tab PO DAILY 30 Days Polyethylene Glycol 3350 17 Gm Powd.pack 17 Gm PO DAILY 10 Days Tylenol (Acetaminophen) 325 Mg Tablet 650 Mg PO PRN Q6HRS PRN 30 Days Hydrocodone-Apap 7.5-325 (Hydrocodone Bit/Acetaminophen) 1 Tab Tablet 1 Tab PO PRN Q6HRS PRN Reported Digoxin 125 Mcg Tablet 125 Mcg PO QODAY Clopidogrel (Clopidogrel Bisulfate) 75 Mg Tablet 1 Tab PO DAILYBFRLUN Gabapentin 300 Mg Capsule 300 Mg PO HS Duoneb 0.5-3(2.5) Mg/3 Ml (Albuterol/Ipratropium) 3 Ml Ampul.neb 1 Vial NEB QID Proair Hfa Inhaler (Albuterol Sulfate) 8.5 Gm Hfa.aer.ad 2 Puff INH PRN Q4HRS PRN Tizanidine Hcl 4 Mg Tablet 1 Tab PO QHS Montelukast Sodium Tablet (Montelukast Sodium) 10 Mg Tablet 10 Mg PO HS Cardizem Cd (Diltiazem Hcl) 180 Mg Cap.er.24h 120 Mg PO DAILY Mag-Oxide (Magnesium Oxide) 400 Mg Tablet 1 Tab PO TID Zocor (Simvastatin) 20 Mg Tablet 20 Mg PO HS Synthroid (Levothyroxine Sodium) 100 Mcg Tablet 100 Mcg PO DAILY06 Protonix Packet (Pantoprazole Sodium) 40 Mg Granpkt.dr 40 Mg PO DAILY08 Folic Acid 1 Mg Tablet 1 Mg PO DAILY Vitamin B-12 (Cyanocobalamin (Vitamin B-12)) 100 Mcg Tablet 100 Mcg PO DAILY Vitals/I & O Vital Sign - Last 24 Hours 12/22/21 12/22/21 12/22/21 12/22/21 11:00 11:22 12:12 15:00 Temp 97.7 97.7 97.7 97.7 Pulse 83 87 85 Resp 14 14 B/P (MAP) 160/82 (108) 135/54 148/75 (99) Pulse Ox 94 97 94 O2 Delivery Room Air Room Air 12/22/21 12/22/21 12/22/21 12/22/21 15:21 17:01 19:00 19:15 Temp 98.6 98.6 Pulse 85 87 Resp 20 B/P (MAP) 148/75 162/81 (108) Pulse Ox 93 O2 Delivery Room Air Room Air Room Air 12/22/21 12/22/21 12/23/21 12/23/21 21:57 23:00 03:00 07:00 Temp 98.5 98.2 97.8 98.5 98.2 97.8 Pulse 80 70 75 Resp 20 20 18 B/P (MAP) 143/88 (106) 107/51 (69) 105/52 (69) Pulse Ox 98 94 92 92 O2 Delivery Room Air Room Air Room Air Room Air 12/23/21 12/23/21 07:31 08:28 Pulse 75 B/P (MAP) 105/52 Pulse Ox 95 O2 Delivery Room Air Intake and Output 12/22/21 12/22/21 12/23/21 15:00 23:00 07:00 Intake Total 170 ml Balance 170 ml EVIE RODGERS Dec 23, 2021 09:40
--- NOTE | 2021-12-23 10:35 | PDOC ---
Renal-Progress Notes Subjective Notes Notes NO NEW COMPLAINTS History of Present Illness Hx of present illness STABLE Vitals Vitals Vital Signs Date Time Temp Pulse Resp B/P (MAP) Pulse Ox O2 Delivery O2 Flow Rate FiO2 12/23/21 08:28 75 105/52 12/23/21 08:00 Room Air 12/23/21 07:31 95 12/23/21 07:00 97.8 18 97.8 12/22/21 08:00 2.0 Weight Weight [ ] I.O. Intake and Output Intake and Output 12/23/21 07:00 Intake Total 170 ml Balance 170 ml Intake Oral 170 ml # Voids 1 Labs Labs Laboratory Tests Test 12/23/21 03:40 12/23/21 06:35 Sodium Level 139 mmol/L (136-145) Potassium Level 3.4 mmol/L (3.5-5.1) Chloride Level 101 mmol/L (98-107) Carbon Dioxide Level 33 mmol/L (21-32) Anion Gap 5 (6-14) Blood Urea Nitrogen 17 mg/dL (8-26) Creatinine 1.7 mg/dL (0.7-1.3) Estimated GFR (Cockcroft-Gault) 39.2 Glucose Level 107 mg/dL (70-99) Calcium Level 8.2 mg/dL (8.5-10.1) White Blood Count 2.9 x10^3/uL (4.0-11.0) Red Blood Count 3.21 x10^6/uL (4.30-5.70) Hemoglobin 10.5 g/dL (13.0-17.5) Hematocrit 31.9 % (39.0-53.0) Mean Corpuscular Volume 100 fL (79-100) Mean Corpuscular Hemoglobin 33 pg (25-35) Mean Corpuscular Hemoglobin Concent 33 g/dL (31-37) Red Cell Distribution Width 16.2 % (11.5-14.5) Platelet Count 74 x10^3/uL (140-400) Neutrophils (%) (Auto) 49 % (31-73) Lymphocytes (%) (Auto) 28 % (24-48) Monocytes (%) (Auto) 11 % (0-9) Eosinophils (%) (Auto) 11 % (0-3) Basophils (%) (Auto) 1 % (0-3) Neutrophils # (Auto) 1.4 x10^3/uL (1.8-7.7) Lymphocytes # (Auto) 0.8 x10^3/uL (1.0-4.8) Monocytes # (Auto) 0.3 x10^3/uL (0.0-1.1) Eosinophils # (Auto) 0.3 x10^3/uL (0.0-0.7) Basophils # (Auto) 0.0 x10^3/uL (0.0-0.2) Review of Systems Constitutional: yes: alert, oriented Ears/Nose/Throat: Yes: no symptom reported Eyes: Yes: no symptom reported Pulmonary: Yes no symptom reported Cardiovascular: Yes no symptom reported Gastrointestional: Yes: no symptom reported Genitourinary: Yes: frequency Musculoskeletal: Yes: muscle stiffness Skin: Yes no symptom reported Psychiatric/Neurological: Yes: no symptom reported Endocrine: Yes: no symptom reported Hematologic/Lymphatic: Yes: no symptom reported Physical Exam General Appearance: no apparent distress Respiratory: bilateral CTA Heart: S1S2 Abdomen: soft, bowel sounds present Genitourinary: bladder flat Extremities: pulses present Neurology: alert Musculoskeletal: Osteoarthritis Assessment Assessment IMP HEMATURIA-RESOLVED HYPERKALEMIA-RESOLVED HYPOKALEMIA CKD STAGE 3B-CR STABLE IN THE 1.5-2.0 RANGE BPH WITH LUT SYMPTOMS BILATERAL RENAL CYSTS-UNCHANGED FROM OCT 2020 HX HTN CAD-PCI/NASIM SSS-S/P PPM PANCYTOPENIA PLAN STABLE FROM RENAL [facility] TO SEE FOR HEMATURIA-CYSTO OP PLANNED CONSIDER HEME EVAL REPLACE K CONT LASIX LABS IN AM WILL FOLLOW TAYLER DYER MD Dec 23, 2021 10:35
[2021-12-23 11:00] VITALS: BP 117/44
--- NOTE | 2021-12-23 11:27 | PDOC ---
KASHMIR ADLER RETAIL SERVICE SPECIALIST 12/23/21 1127: CARDIO Progress Notes Date and Time Date of Service 12/23/2021 Time of Evaluation 1110 Subjective Subjective: No Chest Pain, No shortness of breath, No Palpitations Vitals Vitals Vital Signs Date Time Temp Pulse Resp B/P (MAP) Pulse Ox O2 Delivery O2 Flow Rate FiO2 12/23/21 08:28 75 105/52 12/23/21 08:00 Room Air 12/23/21 07:31 95 12/23/21 07:00 97.8 18 97.8 12/22/21 08:00 2.0 Weight Weight [ ] Input and Output Intake and Output Intake and Output 12/23/21 07:00 Intake Total 170 ml Balance 170 ml Intake Oral 170 ml # Voids 1 Laboratory Labs Laboratory Tests Test 12/23/21 03:40 12/23/21 06:35 Sodium Level 139 mmol/L (136-145) Potassium Level 3.4 mmol/L (3.5-5.1) Chloride Level 101 mmol/L (98-107) Carbon Dioxide Level 33 mmol/L (21-32) Anion Gap 5 (6-14) Blood Urea Nitrogen 17 mg/dL (8-26) Creatinine 1.7 mg/dL (0.7-1.3) Estimated GFR (Cockcroft-Gault) 39.2 Glucose Level 107 mg/dL (70-99) Calcium Level 8.2 mg/dL (8.5-10.1) White Blood Count 2.9 x10^3/uL (4.0-11.0) Red Blood Count 3.21 x10^6/uL (4.30-5.70) Hemoglobin 10.5 g/dL (13.0-17.5) Hematocrit 31.9 % (39.0-53.0) Mean Corpuscular Volume 100 fL (79-100) Mean Corpuscular Hemoglobin 33 pg (25-35) Mean Corpuscular Hemoglobin Concent 33 g/dL (31-37) Red Cell Distribution Width 16.2 % (11.5-14.5) Platelet Count 74 x10^3/uL (140-400) Neutrophils (%) (Auto) 49 % (31-73) Lymphocytes (%) (Auto) 28 % (24-48) Monocytes (%) (Auto) 11 % (0-9) Eosinophils (%) (Auto) 11 % (0-3) Basophils (%) (Auto) 1 % (0-3) Neutrophils # (Auto) 1.4 x10^3/uL (1.8-7.7) Lymphocytes # (Auto) 0.8 x10^3/uL (1.0-4.8) Monocytes # (Auto) 0.3 x10^3/uL (0.0-1.1) Eosinophils # (Auto) 0.3 x10^3/uL (0.0-0.7) Basophils # (Auto) 0.0 x10^3/uL (0.0-0.2) Review of Systems Constitutional: yes: alert, oriented Ears/Nose/Throat: Yes: no symptom reported Eyes: Yes: no symptom reported Pulmonary: Yes no symptom reported Cardiovascular: Yes no symptom reported Gastrointestional: Yes: no symptom reported Genitourinary: Yes: frequency Musculoskeletal: Yes: muscle stiffness Skin: Yes no symptom reported Psychiatric/Neurological: Yes: no symptom reported Endocrine: Yes: no symptom reported Hematologic/Lymphatic: Yes: no symptom reported Physical Exam HEENT: Neck Supple W Full Motion Chest: Symmetric LUNGS: Other (diminished bases with tino upper exp wheeze) Heart: irregularly irregular (AFIB) Abdomen: Soft N/T, Other (obese) Extremities: Other (2+ bilateral LE pitting edema) Neurology: alert, oriented, follow commands Assessment Assessment 1. Hematuria; now resolved 2. Mild acute on chronic diastolic CHF: appears compensated 3. Chronic AFIB: rate controlled. Poor candidate for OAC due to recurrent hematuria. Rate avg at 100 currently at rest 4. CAD: 3VD s/p PCI/NASIM to LM, LAD, and RCA 2018 as noted above. clinically stable. Stress test 10/03 without evidence of ischemia as noted above. 5. Hypertension; controlled at low end 6. Hyperlipidemia; statin 7. CKD: bilateral renal cyst; as per nephrology 8. SSS sp PPM ([employer]): intermittent v-pacing. device check 12/21/21 with normal function, adequate battery life, stable lead impedances. 9. Hypothyroidism: on replacement 10. Venous insufficiency: s/p RF ablation of bilateral greater and right lesser saphenous vein, stable 11. Pancytopenia: per PCP 12. Large left arm ecchymoses: reported to be due to BP cuff. Neurovascular status intact Recommendations Lasix therapy, K replacement Continue Cardizem and Digoxin for rate control. Unable to titrate up cardizem due to low BP, Monitor HR trend Check TSH Resume secondary prevention ASA for stroke prophylaxis unless hematuria persists No OAC due to recurrent hematuria. Patient has refused LAAO Will need Urology referral Supportive care Justicifation of Admission Dx: Justifications for Admission: Justification of Admission Dx: N/A OBED ELI MD 12/23/212026: CARDIO Progress Notes Assessment Assessment Patient seen and examined. Agree with KENNEL OPERATOR's assessment and plan Ac on chr diast HF better compensated SSS s/p PPM stable clinically Perm atrial fib rate controlled Continue current medical regimen KASHMIR ADLER RETAIL SERVICE SPECIALIST Dec 23, 2021 11:27 OBED ELI MD Dec 23, 2021 20:27
--- NOTE | 2021-12-23 12:07 | PDOC ---
PULMONARY PROGRESS NOTES DATE: 12/23/21 TIME: 12:04 Subjective Patient feels better. Vitals Vital Signs Date Time Temp Pulse Resp B/P (MAP) Pulse Ox O2 Delivery O2 Flow Rate FiO2 12/23/21 11:58 Room Air 12/23/21 11:00 97.7 84 18 117/44 (68) 91 97.7 12/22/21 08:00 2.0 General: Alert, No acute distress Lungs: Wheezing (Faint) Cardiovascular: S1 Abdomen: Soft Extremities: Other (2+ edema) Labs Laboratory Tests Test 12/21/21 14:28 12/21/21 15:02 12/21/21 17:37 12/21/21 20:00 White Blood Count 4.4 x10^3/uL (4.0-11.0) Red Blood Count 3.76 x10^6/uL (4.30-5.70) Hemoglobin 12.3 g/dL (13.0-17.5) Hematocrit 36.8 % (39.0-53.0) Mean Corpuscular Volume 98 fL (79-100) Mean Corpuscular Hemoglobin 33 pg (25-35) Mean Corpuscular Hemoglobin Concent 34 g/dL (31-37) Red Cell Distribution Width 16.2 % (11.5-14.5) Platelet Count 128 x10^3/uL (140-400) Neutrophils (%) (Auto) 75 % (31-73) Lymphocytes (%) (Auto) 10 % (24-48) Monocytes (%) (Auto) 8 % (0-9) Eosinophils (%) (Auto) 6 % (0-3) Basophils (%) (Auto) 1 % (0-3) Neutrophils # (Auto) 3.3 x10^3/uL (1.8-7.7) Lymphocytes # (Auto) 0.5 x10^3/uL (1.0-4.8) Monocytes # (Auto) 0.4 x10^3/uL (0.0-1.1) Eosinophils # (Auto) 0.3 x10^3/uL (0.0-0.7) Basophils # (Auto) 0.0 x10^3/uL (0.0-0.2) Sodium Level 133 mmol/L (136-145) Potassium Level 5.8 mmol/L (3.5-5.1) Chloride Level 96 mmol/L (98-107) Carbon Dioxide Level 29 mmol/L (21-32) Anion Gap 8 (6-14) Blood Urea Nitrogen 21 mg/dL (8-26) Creatinine 1.6 mg/dL (0.7-1.3) Estimated GFR (Cockcroft-Gault) 42.0 BUN/Creatinine Ratio 13 (6-20) Glucose Level 94 mg/dL (70-99) Calcium Level 9.1 mg/dL (8.5-10.1) Magnesium Level 2.1 mg/dL (1.8-2.4) Total Bilirubin 2.5 mg/dL (0.2-1.0) Aspartate Amino Transf (AST/SGOT) 53 U/L (15-37) Alanine Aminotransferase (ALT/SGPT) 20 U/L (16-63) Alkaline Phosphatase 271 U/L (46-116) Troponin I High Sensitivity 17 ng/L (4-75) 18 ng/L (4-75) 18 ng/L (4-75) MZ-Idx-J-Type Natriuretic Peptide 52136 pg/mL (0-449) Total Protein 6.7 g/dL (6.4-8.2) Albumin 3.0 g/dL (3.4-5.0) Albumin/Globulin Ratio 0.8 (1.0-1.7) Urine Collection Type Unknown Urine Color (Auto) Light yellow Urine Turbidity Clear Urine pH (Auto) 6.5 (<5.0-8.0) Urine Specific [place] 1.008 (1.000-1.030) Urine Protein (Auto) Negative mg/dL (Negative) Urine Glucose (Auto)(UA) Negative mg/dL (Negative) Urine Ketones (Auto) Negative mg/dL (Negative) Urine Blood (Auto) Large (Negative) Urine Nitrite Negative (Negative) Urine Bilirubin (Auto) Negative (Negative) Urine Urobilinogen (Auto) Normal mg/dL (Normal) Urine Leukocyte Esterase (Auto) Small (Negative) Urine RBC 20-40 /HPF (0-2) Urine WBC 20-40 /HPF (0-4) Urine Squamous Epithelial Cells Mod /LPF Urine Transitional Epithelial Cells Few /LPF Urine Bacteria 0 /HPF (0-FEW) Test 12/22/21 06:50 12/23/21 03:40 12/23/21 06:35 White Blood Count 5.4 x10^3/uL (4.0-11.0) 2.9 x10^3/uL (4.0-11.0) Red Blood Count 3.98 x10^6/uL (4.30-5.70) 3.21 x10^6/uL (4.30-5.70) Hemoglobin 13.4 g/dL (13.0-17.5) 10.5 g/dL (13.0-17.5) Hematocrit 39.6 % (39.0-53.0) 31.9 % (39.0-53.0) Mean Corpuscular Volume 99 fL (79-100) 100 fL (79-100) Mean Corpuscular Hemoglobin 34 pg (25-35) 33 pg (25-35) Mean Corpuscular Hemoglobin Concent 34 g/dL (31-37) 33 g/dL (31-37) Red Cell Distribution Width 16.6 % (11.5-14.5) 16.2 % (11.5-14.5) Platelet Count 95 x10^3/uL (140-400) 74 x10^3/uL (140-400) Neutrophils (%) (Auto) 77 % (31-73) 49 % (31-73) Lymphocytes (%) (Auto) 9 % (24-48) 28 % (24-48) Monocytes (%) (Auto) 7 % (0-9) 11 % (0-9) Eosinophils (%) (Auto) 7 % (0-3) 11 % (0-3) Basophils (%) (Auto) 0 % (0-3) 1 % (0-3) Neutrophils # (Auto) 4.2 x10^3/uL (1.8-7.7) 1.4 x10^3/uL (1.8-7.7) Lymphocytes # (Auto) 0.5 x10^3/uL (1.0-4.8) 0.8 x10^3/uL (1.0-4.8) Monocytes # (Auto) 0.4 x10^3/uL (0.0-1.1) 0.3 x10^3/uL (0.0-1.1) Eosinophils # (Auto) 0.4 x10^3/uL (0.0-0.7) 0.3 x10^3/uL (0.0-0.7) Basophils # (Auto) 0.0 x10^3/uL (0.0-0.2) 0.0 x10^3/uL (0.0-0.2) Sodium Level 140 mmol/L (136-145) 139 mmol/L (136-145) Potassium Level 3.8 mmol/L (3.5-5.1) 3.4 mmol/L (3.5-5.1) Chloride Level 99 mmol/L (98-107) 101 mmol/L (98-107) Carbon Dioxide Level 33 mmol/L (21-32) 33 mmol/L (21-32) Anion Gap 8 (6-14) 5 (6-14) Blood Urea Nitrogen 18 mg/dL (8-26) 17 mg/dL (8-26) Creatinine 1.6 mg/dL (0.7-1.3) 1.7 mg/dL (0.7-1.3) Estimated GFR (Cockcroft-Gault) 42.0 39.2 BUN/Creatinine Ratio 11 (6-20) Glucose Level 91 mg/dL (70-99) 107 mg/dL (70-99) Calcium Level 8.9 mg/dL (8.5-10.1) 8.2 mg/dL (8.5-10.1) Total Bilirubin 1.3 mg/dL (0.2-1.0) Aspartate Amino Transf (AST/SGOT) 39 U/L (15-37) Alanine Aminotransferase (ALT/SGPT) 21 U/L (16-63) Alkaline Phosphatase 257 U/L (46-116) Total Protein 7.1 g/dL (6.4-8.2) Albumin 3.0 g/dL (3.4-5.0) Albumin/Globulin Ratio 0.7 (1.0-1.7) Digoxin Level 1.0 ng/mL (0.9-2.0) Digoxin Last Dose Date 12/22/21 Digoxin Last Dose Time 1122 Laboratory Tests Test 12/23/21 03:40 12/23/21 06:35 Sodium Level 139 mmol/L (136-145) Potassium Level 3.4 mmol/L (3.5-5.1) Chloride Level 101 mmol/L (98-107) Carbon Dioxide Level 33 mmol/L (21-32) Anion Gap 5 (6-14) Blood Urea Nitrogen 17 mg/dL (8-26) Creatinine 1.7 mg/dL (0.7-1.3) Estimated GFR (Cockcroft-Gault) 39.2 Glucose Level 107 mg/dL (70-99) Calcium Level 8.2 mg/dL (8.5-10.1) White Blood Count 2.9 x10^3/uL (4.0-11.0) Red Blood Count 3.21 x10^6/uL (4.30-5.70) Hemoglobin 10.5 g/dL (13.0-17.5) Hematocrit 31.9 % (39.0-53.0) Mean Corpuscular Volume 100 fL (79-100) Mean Corpuscular Hemoglobin 33 pg (25-35) Mean Corpuscular Hemoglobin Concent 33 g/dL (31-37) Red Cell Distribution Width 16.2 % (11.5-14.5) Platelet Count 74 x10^3/uL (140-400) Neutrophils (%) (Auto) 49 % (31-73) Lymphocytes (%) (Auto) 28 % (24-48) Monocytes (%) (Auto) 11 % (0-9) Eosinophils (%) (Auto) 11 % (0-3) Basophils (%) (Auto) 1 % (0-3) Neutrophils # (Auto) 1.4 x10^3/uL (1.8-7.7) Lymphocytes # (Auto) 0.8 x10^3/uL (1.0-4.8) Monocytes # (Auto) 0.3 x10^3/uL (0.0-1.1) Eosinophils # (Auto) 0.3 x10^3/uL (0.0-0.7) Basophils # (Auto) 0.0 x10^3/uL (0.0-0.2) Medications Active Scripts Medications Dose Route/Sig Max Daily Dose Days Date Category Gabapentin 300 Mg Capsule 1 Cap PO DAILY 12/21/21 Reported Duoneb 0.5-3(2.5) Mg/3 Ml (Albuterol/Ipratropium) 3 Ml Ampul.neb 1 Vial NEB QID 12/21/21 Reported Proair Hfa Inhaler (Albuterol Sulfate) 8.5 Gm Hfa.aer.ad 2 Puff INH PRN Q4HRS PRN 12/21/21 Reported Sennosides-Docusate Sodium Tab (Sennosides/Docusate Sodium) 1 Each Tablet 2 Tab PO DAILY 30 10/24/20 Rx Polyethylene Glycol 3350 17 Gm Powd.pack 17 Gm PO DAILY 10 10/24/20 Rx Tylenol (Acetaminophen) 325 Mg Tablet 650 Mg PO PRN Q6HRS PRN 30 10/24/20 Rx Hydrocodone-Apap 7.5-325 (Hydrocodone Bit/Acetaminophen) 1 Tab Tablet 1 Tab PO PRN Q6HRS PRN 10/24/20 Rx Tizanidine Hcl 4 Mg Tablet 1 Tab PO QHS 10/21/20 Reported Montelukast Sodium Tablet (Montelukast Sodium) 10 Mg Tablet 10 Mg PO HS 11/29/18 Reported Digoxin 125 Mcg Tablet 125 Mcg PO DAILY 11/29/18 Reported Cardizem Cd (Diltiazem Hcl) 180 Mg Cap.er.24h 120 Mg PO DAILY 11/29/18 Reported Mag-Oxide (Magnesium Oxide) 400 Mg Tablet 1 Tab PO TID 09/13/17 Reported Zocor (Simvastatin) 20 Mg Tablet 20 Mg PO HS 08/20/13 Reported Synthroid (Levothyroxine Sodium) 100 Mcg Tablet 100 Mcg PO DAILY06 08/20/13 Reported Protonix Packet (Pantoprazole Sodium) 40 Mg Granpkt.dr 40 Mg PO DAILY08 08/20/13 Reported Folic Acid 1 Mg Tablet 1 Mg PO DAILY 08/20/13 Reported Vitamin B-12 (Cyanocobalamin (Vitamin B-12)) 100 Mcg Tablet 100 Mcg PO DAILY 08/20/13 Reported Impression . 1. 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 2. Acute on chronic diastolic heart failure. 3. Acute exacerbation of reactive airway disease/COPD 4. Hematuria. 5. Chronic kidney disease. 6. Coronary artery disease with previous stent placement. 7. Gout. 8. Hyperlipidemia. Plan . 1. Continue to diurese. 2. Avoid caffeinated beverages and eating close to bedtime. 3. Follow Nephrology input. 4. Urology has been consulted. 5. Continue duo nebs and add Pulmicort nebs 6. Consider sleep study as an outpatient LIBRA NDIAYE MD Dec 23, 2021 12:07
[2021-12-23] MEDS: POTASSIUM CHLORIDE 20 MEQ TABLET.ER. PO SCH (12:22)
[2021-12-23] MEDS: BUDESONIDE 0.5 MG/2 ML NEBU. NEB SCH ×2 (13:00→20:35)
[2021-12-23 15:00] VITALS: BP 131/66
[2021-12-23 19:00] VITALS: BP 146/75
[2021-12-23] MEDS: MONTELUKAST SODIUM 10 MG TABLET. PO SCH (21:03)
[2021-12-23] MEDS: ATORVASTATIN CALCIUM 40 MG TABLET. PO SCH (21:03)
[2021-12-23] MEDS: tiZANidine 4 MG TABLET. PO SCH (21:04)
[2021-12-23] MEDS: cefTRIAXone IV Push 1 GM VIAL. IVP SCH (21:04)
[2021-12-23 23:00] VITALS: BP 108/58
[2021-12-24 03:00] VITALS: BP 106/59
[2021-12-24] MEDS: LEVOTHYROXINE 100 MCG TABLET PO SCH (05:38)
[2021-12-24] MEDS: PANTOPRAZOLE 40 MG TABLET.DR. PO SCH (05:38)
[2021-12-24 06:35] LABS: BASO % 1 % (0-3); EOS # 0.6 x10^3/uL (0.0-0.7); EOS % 13 % (0-3); HEMATOCRIT 35.3 % (39.0-53.0); HEMOGLOBIN 11.4 g/dL (13.0-17.5); LYMPH # 0.7 x10^3/uL (1.0-4.8); LYMPH % 16 % (24-48); MEAN CORPUSCULAR HEMOGLOBIN 32 pg (25-35); MEAN CORPUSCULAR HGB CONC 32 g/dL (31-37); MEAN CORPUSCULAR VOLUME 100 fL (79-100); MONO # 0.4 x10^3/uL (0.0-1.1); MONO % 8 % (0-9); NEUT # 2.7 x10^3/uL (1.8-7.7); NEUT % 62 % (31-73); PLATELET COUNT 75 x10^3/uL (140-400); RED BLOOD COUNT 3.54 x10^6/uL (4.30-5.70); RED CELL DISTRIBUTION WIDTH 17.1 % (11.5-14.5); WHITE BLOOD COUNT 4.4 x10^3/uL (4.0-11.0)
[2021-12-24 06:53] LABS: CALCIUM 8.1 mg/dL (8.5-10.1); CREATININE 1.8 mg/dL (0.7-1.3); GFR 36.7; MAGNESIUM 1.8 mg/dL (1.8-2.4); POTASSIUM 3.6 mmol/L (3.5-5.1)
[2021-12-24 07:00] VITALS: BP_SYST 143; BP_DIAS 102; BP_DIAS 75
[2021-12-24] MEDS: BUDESONIDE 0.5 MG/2 ML NEBU. NEB SCH (07:26)
[2021-12-24] MEDS: IPRATRPIUM/ALBUTEROL 0.5/2.5MG 3 ML NEBU. NEB SCH (07:26)
[2021-12-24] MEDS: CYANOCOBALAMIN (VITAMIN B-12) 100 MCG TABLET. PO SCH (07:31)
[2021-12-24] MEDS: GABAPENTIN 300 MG CAPSULE. PO SCH (07:32)
[2021-12-24] MEDS: MAGNESIUM OXIDE 400 MG TABLET PO SCH (07:32)
[2021-12-24] MEDS: ASPIRIN ENTERIC COATED 81 MG TABLET.DR. PO SCH (07:32)
[2021-12-24] MEDS: POTASSIUM CHLORIDE 20 MEQ TABLET.ER. PO SCH (07:32)
[2021-12-24] MEDS: POLYETHYLENE GLYCOL 3350 17 GM PACKET. PO SCH (07:33)
[2021-12-24] MEDS: SENNOSIDES/DOCUSATE 8.6/50MG TABLET. PO SCH (07:33)
[2021-12-24] MEDS: FUROSEMIDE 40 MG/4 ML VIAL. IVP SCH (07:33)
[2021-12-24 08:32] VITALS: BP 147/75
[2021-12-24] MEDS ORDERED: DIGOXIN 125 MCG TABLET. PO SCH (09:00)
[2021-12-24] MEDS ORDERED: POTA10TA12 PO (09:04)
[2021-12-24] MEDS ORDERED: ATOR40TA59 PO (09:04)
[2021-12-24] MEDS ORDERED: FURO40TA4 PO (09:04)
[2021-12-24] MEDS ORDERED: ASPI-886 PO (09:04)
--- NOTE | 2021-12-24 09:08 | DISCH ---
DISCHARGE INSTRUCTIONS Condition on Discharge Condition on Discharge: Stable Activity After Discharge Activity Instructions for Disc: Activity as tolerated, Progressive ambulation Lifting Instructions after Dis: No heavy lifting Exercise Instruction after Dis: Progress as tolerated Weight Bearing Status after Di: As tolerated Diet after Discharge Diet after Discharge: Cardiac, Regular Diet Texture: Regular Liquid Texture: Thin Liquid Swallowing Supervision: None needed Contacting the DRConchis after DC Call your doctor for: Concerns you may have Follow-Up Follow up with: Dr.Pratip Falk in 5 days Treatment/Equipment after DC Adaptive Equipment Issued: None PATTY FALK MD Dec 24, 2021 09:08
--- NOTE | 2021-12-24 09:27 | PDOC3 ---
IM DISCHARGE SUMMARY Date of Admission Date of Admission Date of Admission: Dec 21, 2021 at 16:38 Date of Discharge Date of Discharge December 24, 2021 Primary Diagnosis Primary Diagnosis 1. Acute on chronic systolic congestive heart failure. 2. Exacerbation of chronic obstructive pulmonary disease. 3. Hematuria. 4. Chronic kidney disease. 5. Acute on chronic respiratory failure. 6. Urinary tract infection. 7. Chronic atrial fibrillation. 8. Low back pain. 9. Coronary artery disease with history of right coronary artery stent placement. 10. Gout. 11. Hyperlipidemia. 12. Hypertension. 13. Obesity. 14. 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 15. Diverticulosis. 16. Renal cyst. 17. History of alcoholism. 18. Physical deconditioning. 19. Osteoarthritis. Consults Consults Mariana Garibay MD; Rober Moore MD; Gopi Villalta MD; Sarahy Jensen MD; Luis A López MD Labs Labs Laboratory Tests Test 12/24/21 05:45 White Blood Count 4.4 x10^3/uL (4.0-11.0) Red Blood Count 3.54 x10^6/uL (4.30-5.70) L Hemoglobin 11.4 g/dL (13.0-17.5) L Hematocrit 35.3 % (39.0-53.0) L Mean Corpuscular Volume 100 fL (79-100) Mean Corpuscular Hemoglobin 32 pg (25-35) Mean Corpuscular Hemoglobin Concent 32 g/dL (31-37) Red Cell Distribution Width 17.1 % (11.5-14.5) H Platelet Count 75 x10^3/uL (140-400) L Neutrophils (%) (Auto) 62 % (31-73) Lymphocytes (%) (Auto) 16 % (24-48) L Monocytes (%) (Auto) 8 % (0-9) Eosinophils (%) (Auto) 13 % (0-3) H Basophils (%) (Auto) 1 % (0-3) Neutrophils # (Auto) 2.7 x10^3/uL (1.8-7.7) Lymphocytes # (Auto) 0.7 x10^3/uL (1.0-4.8) L Monocytes # (Auto) 0.4 x10^3/uL (0.0-1.1) Eosinophils # (Auto) 0.6 x10^3/uL (0.0-0.7) Basophils # (Auto) 0.0 x10^3/uL (0.0-0.2) Sodium Level 136 mmol/L (136-145) Potassium Level 3.6 mmol/L (3.5-5.1) Chloride Level 98 mmol/L (98-107) Carbon Dioxide Level 32 mmol/L (21-32) Anion Gap 6 (6-14) Blood Urea Nitrogen 15 mg/dL (8-26) Creatinine 1.8 mg/dL (0.7-1.3) H Estimated GFR (Cockcroft-Gault) 36.7 Glucose Level 107 mg/dL (70-99) H Calcium Level 8.1 mg/dL (8.5-10.1) L Magnesium Level 1.8 mg/dL (1.8-2.4) Laboratory Tests 12/24/21 05:45 Laboratory Tests 12/24/21 05:45 Brief hospital course Brief hospital course A 76 years old male who has a history of systolic congestive heart failure, chronic kidney disease, COPD, chronic atrial fibrillation, history of coronary artery disease with right coronary artery stent, osteoarthritis, COPD, avascular necrosis of the bone of the left hip and multiple other medical problems started having hematuria 2 days ago. He also started having lower abdominal pain and continues to have lower abdominal pain. Because of the hematuria and lower abdominal pain, he came to the emergency room. He also has been wheezing for quite some time as per patient. Denies any cold, but has some cough and congestion, mucus is clear. He denies any nausea, vomiting, dysuria. He does have chronic joint pains. In the emergency room, the patient was evaluated. He was noted to have fluid retention. WBC count was 4.4, hemoglobin 12.3, platelet count 128,000. Sodium 133, potassium 5.8, BUN 21, creatinine 1.6, AST 53, ALT 20, alkaline phosphatase 271, albumin 3. BNP was 12,254. Urinalysis shows large blood, nitrite negative, 20-40 rbc's and wbc's. Lower extremity ultrasounds were negative for DVT. Chest x-ray shows chronic elevation of the right hemidiaphragm with chronic right lung base atelectasis or scarring. No pleural effusion or pulmonary edema noted. CT scan of abdomen and pelvis shows small right pleural effusion with mild bibasilar lung atelectasis or infiltrates, small amount of free fluid identified in the abdomen and pelvis, likely ascites, multiple cystic structures in both kidneys, largest measuring 7.8 cm, likely cysts, multiple sigmoid colon diverticulosis, hepatic steatosis and moderate compression change of the lumbar vertebral bodies throughout with kyphoplasty changes identified at T12, L1, L2. Because of the hematuria, congestive heart failure, acute on chronic systolic and exacerbation of COPD and multiple problems, the patient was admitted for further evaluation and management. For more details regarding the past history, family history, social history, surgical history and other details, please refer to the H&P. 1. Acute on chronic systolic congestive heart failure. He was treated with IV Lasix. Patient will get oral Lasix and potassium chloride at home. I have advised him to decrease fluid intake. Consult Dr. Villalta for cardiology evaluation and management. Atrial fibrillation. Continue aspirin as tolerated. Not a candidate for DOAC due to recurrent hematuria. Patient has declined watchman device/left atrial appendage occlusion previously. 2. Hematuria. Monitor. The patient is not on any anticoagulation. I will also not start him on any DVT prophylaxis. We will use SCDs for DVT prophylaxis. Consult Dr. Alfredo for Urology evaluation and management. Urologist has recommended outpatient cystoscopy. Urine culture is negative. DC IV Rocephin. 3. Chronic kidney disease and fluid retention. Consult Dr. Segal for nephrology evaluation and management. 4. Possible UTI. Start IV Rocephin. 5. Exacerbation of chronic obstructive pulmonary disease. Consult Dr. Garibay for pulmonary evaluation and management. Slowly improving. Oxygenation is better and patient is now on room air. 6. Osteoarthritis. Continue hydrocodone. As patient is clinically improving, discharge him to home today. Medications Medications reviewed and reconciled for discharge. Home Meds Active Scripts Furosemide (FUROSEMIDE) 40 Mg Tablet, 1 TAB PO DAILY for CHF, #30 TAB 5 Refills Prov:PATTY FALK MD 12/24/21 Potassium Chloride (POTASSIUM CHLORIDE ) 10 Meq Tab.sr.24h, 10 MEQ PO DAILY for SUPPLEMENT for 30 Days, #30 TAB.SR Prov:PATTY FALK MD 12/24/21 Aspirin (ASPIRIN EC) 81 Mg Tablet.dr, 81 MG PO DAILYWBKFT for CAD for 30 Days, #30 TAB.SR Prov:PATTY FALK MD 12/24/21 Atorvastatin Calcium (ATORVASTATIN CALCIUM) 40 Mg Tablet, 40 MG PO QHS for CAD for 30 Days, #30 TAB 5 Refills Prov:PATTY FALK MD 12/24/21 Sennosides/Docusate Sodium (SENNOSIDES-DOCUSATE SODIUM TAB) 1 Each Tablet, 2 TAB PO DAILY for constipation for 30 Days, #60 TAB Prov:PATTY FALK MD 10/24/20 Polyethylene Glycol 3350 (POLYETHYLENE GLYCOL 3350) 17 Gm Powd.pack, 17 GM PO DAILY for constipation for 10 Days, #10 PKT Prov:PATTY FALK MD 10/24/20 Acetaminophen (TYLENOL) 325 Mg Tablet, 650 MG PO PRN Q6HRS PRN for MILD PAIN / TEMP > 100.3'F for 30 Days, #28 TAB Prov:PATTY FALK MD 10/24/20 Hydrocodone Bit/Acetaminophen (HYDROCODONE-APAP 7.5-325 ) 1 Tab Tablet, 1 TAB PO PRN Q6HRS PRN for MODERATE TO SEVERE PAIN, #90 TAB Prov:PATTY FALK MD 10/24/20 Reported Medications Digoxin (DIGOXIN) 125 Mcg Tablet, 125 MCG PO QODAY for AFIB/HEART FAILURE, TAB 12/22/21 Clopidogrel Bisulfate (CLOPIDOGREL) 75 Mg Tablet, 1 TAB PO DAILYBFRLUN for CAD, #90 TAB 1 Refill 12/22/21 Gabapentin (GABAPENTIN) 300 Mg Capsule, 300 MG PO HS for NEUROGENIC PAIN, CAP 12/22/21 Ipratropium/Albuterol Sulfate (DUONEB 0.5-3(2.5) MG/3 ML) 3 Ml Ampul.neb, 1 VIAL NEB QID for copd 12/21/21 Albuterol Sulfate (PROAIR HFA INHALER) 8.5 Gm Hfa.aer.ad, 2 PUFF INH PRN Q4HRS PRN for SHORTNESS OF BREATH 12/21/21 Tizanidine Hcl (TIZANIDINE HCL) 4 Mg Tablet, 1 TAB PO QHS for muscle relaxer 10/21/20 Montelukast Sodium (MONTELUKAST SODIUM TABLET ) 10 Mg Tablet, 10 MG PO HS for FOR ASTHMA, #30 TAB 0 Refills 11/29/18 Diltiazem Hcl (CARDIZEM CD) 180 Mg Cap.er.24h, 120 MG PO DAILY for FOR HYPERTENSION, #30 CAP 0 Refills 11/29/18 Magnesium Oxide (MAG-OXIDE) 400 Mg Tablet, 1 TAB PO TID for electrolyte balance, #60 TAB 5 Refills 09/13/17 Levothyroxine Sodium (SYNTHROID) 100 Mcg Tablet, 100 MCG PO DAILY06 08/20/13 Pantoprazole Sodium (PROTONIX PACKET) 40 Mg Granpkt.dr, 40 MG PO DAILY08 08/20/13 Folic Acid (FOLIC ACID) 1 Mg Tablet, 1 MG PO DAILY 08/20/13 Cyanocobalamin (Vitamin B-12) (VITAMIN B-12) 100 Mcg Tablet, 100 MCG PO DAILY 08/20/13 Discontinued Reported Medications Simvastatin (ZOCOR) 20 Mg Tablet, 20 MG PO HS 08/20/13 Gabapentin (Gabapentin) 300 Mg Capsule, 1 CAP PO DAILY for neuropathy 12/21/21 Digoxin (DIGOXIN) 125 Mcg Tablet, 125 MCG PO DAILY for AFIB/HEART FAILURE, TAB 11/29/18 Allergy Allergies Coded Allergies Type Severity Reaction Last Updated Verified No Known Drug Allergies 08/19/13 No Follow up in 5 days. DISPOSITION: Home Comments Discharge Management - 35 minutes. For other details please refer to discharge instructions Justicifation of Admission Dx: Justifications for Admission: Justification of Admission Dx: N/A PATTY FALK MD Dec 24, 2021 09:27
--- NOTE | 2021-12-24 09:36 | NUR ---
Discharge Note: DUNCAN VALDIVIA Discharge instructions and discharge home medications reviewed with Patient and a copy given. All questions have been answered and understanding verbalized. The following instructions and handouts were given: d/c instructions reviewed with patient Discontinued lines and drains: Peripheral IV intact. Patient discharged to Home or Self Care with Spouse via Wheelchair
--- NOTE | 2021-12-24 10:22 | PDOC ---
Renal-Progress Notes Subjective Notes Notes NO NEW COMPLAINTS History of Present Illness Hx of present illness STABLE Vitals Vitals Vital Signs Date Time Temp Pulse Resp B/P (MAP) Pulse Ox O2 Delivery O2 Flow Rate FiO2 12/24/21 08:32 98.1 85 147/75 (99) 95 Room Air 2.0 98.1 12/24/21 07:00 18 Weight Weight [ ] I.O. Intake and Output Intake and Output 12/24/21 07:00 Intake Total 200 ml Balance 200 ml Intake Oral 200 ml Bladder Scan Volume Amount # Voids 2 # Bowel Movements 1 Labs Labs Laboratory Tests Test 12/24/21 05:45 White Blood Count 4.4 x10^3/uL (4.0-11.0) Red Blood Count 3.54 x10^6/uL (4.30-5.70) Hemoglobin 11.4 g/dL (13.0-17.5) Hematocrit 35.3 % (39.0-53.0) Mean Corpuscular Volume 100 fL (79-100) Mean Corpuscular Hemoglobin 32 pg (25-35) Mean Corpuscular Hemoglobin Concent 32 g/dL (31-37) Red Cell Distribution Width 17.1 % (11.5-14.5) Platelet Count 75 x10^3/uL (140-400) Neutrophils (%) (Auto) 62 % (31-73) Lymphocytes (%) (Auto) 16 % (24-48) Monocytes (%) (Auto) 8 % (0-9) Eosinophils (%) (Auto) 13 % (0-3) Basophils (%) (Auto) 1 % (0-3) Neutrophils # (Auto) 2.7 x10^3/uL (1.8-7.7) Lymphocytes # (Auto) 0.7 x10^3/uL (1.0-4.8) Monocytes # (Auto) 0.4 x10^3/uL (0.0-1.1) Eosinophils # (Auto) 0.6 x10^3/uL (0.0-0.7) Basophils # (Auto) 0.0 x10^3/uL (0.0-0.2) Sodium Level 136 mmol/L (136-145) Potassium Level 3.6 mmol/L (3.5-5.1) Chloride Level 98 mmol/L (98-107) Carbon Dioxide Level 32 mmol/L (21-32) Anion Gap 6 (6-14) Blood Urea Nitrogen 15 mg/dL (8-26) Creatinine 1.8 mg/dL (0.7-1.3) Estimated GFR (Cockcroft-Gault) 36.7 Glucose Level 107 mg/dL (70-99) Calcium Level 8.1 mg/dL (8.5-10.1) Magnesium Level 1.8 mg/dL (1.8-2.4) Micro Micro Microbiology 12/21/21 Urine Culture - Final, Complete Review of Systems Constitutional: yes: alert, oriented Ears/Nose/Throat: Yes: no symptom reported Eyes: Yes: no symptom reported Pulmonary: Yes no symptom reported Cardiovascular: Yes no symptom reported Gastrointestional: Yes: no symptom reported Genitourinary: Yes: frequency Musculoskeletal: Yes: muscle stiffness Skin: Yes no symptom reported Psychiatric/Neurological: Yes: no symptom reported Endocrine: Yes: no symptom reported Hematologic/Lymphatic: Yes: no symptom reported Physical Exam General Appearance: no apparent distress Respiratory: bilateral CTA Heart: S1S2 Abdomen: soft, bowel sounds present Genitourinary: bladder flat Extremities: pulses present Neurology: alert, oriented, follow commands Musculoskeletal: Osteoarthritis Assessment Assessment IMP HEMATURIA-RESOLVED HYPERKALEMIA-RESOLVED HYPOKALEMIA-CORRECTED CKD STAGE 3B-CR STABLE IN THE 1.5-2.0 RANGE BPH WITH LUT SYMPTOMS BILATERAL RENAL CYSTS-UNCHANGED FROM OCT 2020 HX HTN CAD-PCI/NASIM SSS-S/P PPM PANCYTOPENIA PLAN STABLE FROM RENAL STANDPOINT UROLOGY TO SEE FOR HEMATURIA-CYSTO OP PLANNED CONT LASIX D/C PLANS NOTED TAYLER DYER MD Dec 24, 2021 10:22
--- NOTE | 2021-12-24 11:14 | PN ---
DATE: 12/24/2021 SUBJECTIVE: The patient feels better. Denies any shortness of breath. OBJECTIVE: VITAL SIGNS: Reviewed. NECK: Supple. LUNGS: With an occasional wheezes. CARDIOVASCULAR: With a regular rate. ABDOMEN: Soft, obese. EXTREMITIES: With pitting edema. IMPRESSION: 1. Dyspnea secondary to multifactorial etiologies including combination of acute on chronic diastolic heart failure, component of cor pulmonale and suspected obstructive sleep apnea. 2. Underlying obesity and suspected obstructive sleep apnea. 3. Lower extremity edema. RECOMMENDATIONS: 1. The patient is clinically better with diuretics. 2. Continue bronchodilators. 3. Consider sleep study as an outpatient. 4. Okay to discharge home today. RUDY DR: Reny TID: [id number]
== END 2021-12-24 10:34 | disposition home or self-care (01) | DRG 291 ==
LOC: ER 12:36 → 5 NORTH 16:38
PROVIDERS: ADMIT Internal Medicine; ATTEND Internal Medicine
DX: I13.0 Hypertensive heart and chronic kidney disease with heart failure and stage 1 through stage 4 chronic kidney disease, or unspecified chronic kidney disease (principal); J96.20 Acute and chronic respiratory failure, unspecified whether with hypoxia or hypercapnia; I50.43 Acute on chronic combined systolic (congestive) and diastolic (congestive) heart failure; R18.8 Other ascites; J44.1 Chronic obstructive pulmonary disease with (acute) exacerbation; D61.818 Other pancytopenia; I48.20 Chronic atrial fibrillation, unspecified; J45.901 Unspecified asthma with (acute) exacerbation; J98.11 Atelectasis; Z68.41 Body mass index [BMI] 40.0-44.9, adult; N39.0 Urinary tract infection, site not specified; N17.9 Acute kidney failure, unspecified; R31.9 Hematuria, unspecified; E03.9 Hypothyroidism, unspecified; E66.9 Obesity, unspecified; E78.00 Pure hypercholesterolemia, unspecified; E78.5 Hyperlipidemia, unspecified; E87.5 Hyperkalemia; E87.6 Hypokalemia; G89.29 Other chronic pain; I25.10 Atherosclerotic heart disease of native coronary artery without angina pectoris; I25.2 Old myocardial infarction; I27.81 Cor pulmonale (chronic); I87.2 Venous insufficiency (chronic) (peripheral); K57.30 Diverticulosis of large intestine without perforation or abscess without bleeding; K76.0 Fatty (change of) liver, not elsewhere classified; M10.9 Gout, unspecified; M19.90 Unspecified osteoarthritis, unspecified site; N18.32 Chronic kidney disease, stage 3b; N28.1 Cyst of kidney, acquired; N39.41 Urge incontinence; N40.0 Benign prostatic hyperplasia without lower urinary tract symptoms; R31.0 Gross hematuria; Z82.49 Family history of ischemic heart disease and other diseases of the circulatory system; Z83.3 Family history of diabetes mellitus; Z87.19 Personal history of other diseases of the digestive system; Z87.891 Personal history of nicotine dependence; Z95.0 Presence of cardiac pacemaker; Z95.5 Presence of coronary angioplasty implant and graft; Z90.49 Acquired absence of other specified parts of digestive tract
CPT/HCPCS: 36415; 51798; 71045; 74176; 80048; 80053; 80162; 81001; 83735; 83880; 84443; 84484; 85025; 87086; 93005; 93970; 94640; 94760; J0696; J1940; J2270; 97530-GP; 97535-GO; 99285-25; G0378; J7626